=== PATIENT | male | born 1955 | race Caucasian/White ===

== ENCOUNTER → 2018-10-14 | Outpatient (CLI) | payer OTHER ==
--- NOTE | 2018-10-14 12:53 | REP ---
Clinical: sore throat. Comparison: none. Technique: PA and lateral. Findings: The mediastinum and cardiac silhouette are normal. The lung guillory are clear and without acute consolidation, effusion, or pneumothorax. The skeletal structures are intact and normal. Impression: 1. No acute cardiopulmonary process. Electronically Signed by Sherif Abel MD 10/14/2018 12:44 P
== END ==
LOC: M LRY 12:26
PROVIDERS: ATTEND Nurse Practitioner Family
DX: J02.9 Acute pharyngitis, unspecified (principal)

== ENCOUNTER → 2018-10-14 | Outpatient (REF) | payer OTHER | LOC: M SFHCLERA 14:12 | PROVIDERS: ATTEND Nurse Practitioner Family | DX: J06.9 Acute upper respiratory infection, unspecified (principal) ==

== ENCOUNTER → 2018-11-17 | Outpatient (REF) | payer OTHER ==
[2018-11-17 12:25] LABS: HEMATOCRIT 37.9 % (42.0-52.0); MEAN CORPUSCULAR HEMOGLOBIN 29.1 pg (27.0-33.0); MEAN CORPUSCULAR HGB CONC 31.7 g/dl (32.0-36.5); PLATELET COUNT, AUTOMATED 108 10^3/uL (150-450); RED BLOOD COUNT 4.12 10^6/uL (4.30-6.10); WHITE BLOOD COUNT 6.6 10^3/uL (4.0-10.0)
[2018-11-17 12:43] LABS: HEMOGLOBIN A1c 6.8 %
[2018-11-17 12:50] LABS: ALBUMIN 3.7 GM/DL (3.2-5.2); ALT/SGPT 61 U/L (12-78); BLOOD UREA NITROGEN 12 MG/DL (7-18); CALCIUM LEVEL 8.9 MG/DL (8.8-10.2); CARBON DIOXIDE LEVEL 26 MEQ/L (21-32); CHLORIDE LEVEL 100 MEQ/L (98-107); CHOLESTEROL LEVEL 220 MG/DL (<200); CHOLESTEROL RISK RATIO 5.789 (<5); CREATININE FOR GFR 0.79 MG/DL (0.70-1.30); GLOMERULAR FILTRATION RATE > 60.0 (>49); GLUCOSE, FASTING 147 MG/DL (70-100); HDL CHOLESTEROL 38 MG/DL (>40); LDL CHOLESTEROL 152 MG/DL (<100); NON-HDL-C 182 MG/DL; SODIUM LEVEL 135 MEQ/L (136-145); TOTAL PROTEIN 7.9 GM/DL (6.4-8.2); TRIGLYCERIDES LEVEL 149 MG/DL (<150)
== END ==
LOC: M SFHCPLAZ 10:07
PROVIDERS: ATTEND Nurse Practitioner Adult Health
DX: Z00.00 Encounter for general adult medical examination without abnormal findings (principal); Z13.220 Encounter for screening for lipoid disorders; I10 Essential (primary) hypertension; Z83.3 Family history of diabetes mellitus

== ENCOUNTER → 2018-12-11 | Outpatient (CLI) | payer OTHER ==
--- NOTE | 2018-12-11 14:12 | REP ---
GALLBLADDER ULTRASOUND: HISTORY: Right upper quadrant pain. There is no filling defects in the gallbladder. The gallbladder wall is minimally thickened measuring 2.4 mm. The common bile duct measures 5.6 mm. The liver is mildly coarse in echogenicity suggestive of chronic liver disease. There is dilatation of the main portal vein measuring 1.8 cm. The right kidney measures 5.2 cm in transverse x 4.6 cm in AP x 10 cm in cephalocaudal dimensions. There is no hydronephrosis or mass. A trace amount of free fluid is present. IMPRESSION: 1. There is a minimally thickened gallbladder wall. 2. The liver is coarse in echogenicity suggestive of chronic liver disease. 3. There is dilatation of the main portal vein. 4. There is a trace amount of free fluid. Electronically Signed by Israel Stanley MD 12/11/2018 02:13 P
== END ==
LOC: M RAD 09:58
PROVIDERS: ATTEND Nurse Practitioner Family
DX: R10.9 Unspecified abdominal pain (principal)

== ENCOUNTER → 2019-01-01 | Outpatient (CLI) | payer OTHER ==
--- NOTE | 2019-01-01 10:43 | REP ---
Abdominal right upper quadrant ultrasound for chronic liver disease: There is no cholelithiasis, gallbladder wall thickening or pericholecystic fluid. There is no intrahepatic or extrahepatic biliary duct dilatation. The common biliary duct measures 2.5 mm in diameter. The hepatic parenchyma is diffusely coarsened compatible with hepato steatosis or chronic hepatic parenchymal disease. There are no hepatic masses or cysts. The main portal vein is dilated measuring up to 17.8 mm, normal as up to 13 mm. The portal vein flow velocity is low normal measuring 23.4 cm/sec, normal is 20 cm/sec - 40 cm/sec. The pancreas is obscured by bowel gas. The right kidney measures 10.9 by 4.5 x 4.2 cm and is normal size. There is no right renal calculus or hydronephrosis. There is no right renal solid or cystic mass. There is right upper quadrant ascites. Impression: There are no hepatic masses. The hepatic parenchyma is coarsened compatible with chronic liver disease. The portal vein is dilated measuring up to 17.8 mm. Flow velocity in the main portal vein is in the low normal range. There is right upper quadrant abdominal ascites. Electronically Signed by Silvio Gunn MD 01/01/2019 10:34 A
== END ==
LOC: M RAD 08:15
PROVIDERS: ATTEND Nurse Practitioner Adult Health
DX: K76.9 Liver disease, unspecified (principal); R18.8 Other ascites

== ENCOUNTER → 2019-02-17 | Outpatient (REF) | payer OTHER, MEDICARE ==
[2019-02-17 12:05] LABS: HEMATOCRIT 37.3 % (42.0-52.0); MEAN CORPUSCULAR HEMOGLOBIN 28.3 pg (27.0-33.0); MEAN CORPUSCULAR HGB CONC 32.2 g/dl (32.0-36.5); PLATELET COUNT, AUTOMATED 100 10^3/uL (150-450); RED BLOOD COUNT 4.24 10^6/uL (4.30-6.10); WHITE BLOOD COUNT 5.3 10^3/uL (4.0-10.0)
[2019-02-17 12:14] LABS: ALBUMIN 3.7 GM/DL (3.2-5.2); ALT/SGPT 44 U/L (12-78); BILIRUBIN,TOTAL 0.6 MG/DL (0.2-1.0); BLOOD UREA NITROGEN 14 MG/DL (7-18); CALCIUM LEVEL 8.8 MG/DL (8.8-10.2); CARBON DIOXIDE LEVEL 27 MEQ/L (21-32); CHLORIDE LEVEL 104 MEQ/L (98-107); FERRITIN 10 NG/ML (26-388); GLOMERULAR FILTRATION RATE > 60.0 (>49); GLUCOSE, FASTING 132 MG/DL (70-100); IRON (FE) 43 UG/DL (65-175); PERCENT SATURATION 10.3 % (19.7-50.0); POTASSIUM SERUM 4.4 MEQ/L (3.5-5.1); SODIUM LEVEL 137 MEQ/L (136-145); TOTAL IRON BINDING CAPACITY 419 UG/DL (250-450); TOTAL PROTEIN 8.1 GM/DL (6.4-8.2)
[2019-02-17 12:20] LABS: HEMOGLOBIN A1c 7.2 %
[2019-02-17 12:34] LABS: MALB URINE SIEMENS < 5.0 MG/L; MAU/CREAT RATIO 4.4 MCG/MG (0.0-30.0)
== END ==
LOC: M SFHCPLAZ 10:30
PROVIDERS: ATTEND Nurse Practitioner Adult Health
DX: E11.9 Type 2 diabetes mellitus without complications (principal); E03.9 Hypothyroidism, unspecified; D64.9 Anemia, unspecified

== ENCOUNTER → 2019-02-24 | Outpatient (CLI) | payer OTHER, MEDICARE ==
[~2019-02-24] MED LIST: ADV250INH; ALLE4TAB11 PO; ASPI81TA85 PO; DILT240C28; FLUTISP; LOSA50TA88; METF500T4; OMEP-221; PROAAER10; SILD50TA PO
[2019-02-24 11:42] LABS: BASO % 0.6 % (0.0-1.0); EOS # 0.1 10^3/uL (0.0-0.50); EOS % 2.4 % (0.0-3.0); HEMATOCRIT 36.4 % (42.0-52.0); HEMOGLOBIN 11.8 g/dl (13.5-17.5); LYMPH # 0.9 10^3/uL (1.5-4.5); LYMPH % 16.2 % (24.0-44.0); MEAN CORPUSCULAR HEMOGLOBIN 28.9 pg (27.0-33.0); MEAN CORPUSCULAR HGB CONC 32.4 g/dl (32.0-36.5); MEAN CORPUSCULAR VOLUME 89.2 fl (80.0-96.0); MONO # 0.5 10^3/uL (0.0-0.8); MONO % 8.5 % (0.0-5.0); NEUTROPHILS # 3.9 10^3/uL (1.8-7.7); NEUTROPHILS % 71.9 % (36.0-66.0); RED BLOOD COUNT 4.08 10^6/uL (4.30-6.10); WHITE BLOOD COUNT 5.4 10^3/uL (4.0-10.0)
[2019-02-24 11:46] LABS: PLATELET COUNT, AUTOMATED 89 10^3/uL (150-450)
[2019-02-24 11:54] LABS: INR 1.04; PROTHROMBIN TIME 13.7 SECONDS (12.1-14.4)
[2019-02-24 11:55] LABS: PARTIAL THROMBOPLASTIN TIME 29.2 SECONDS (25.4-37.6)
[2019-02-24 12:38] LABS: ALBUMIN 3.9 GM/DL (3.2-5.2); ALT/SGPT 41 U/L (12-78); BILIRUBIN,DIRECT 0.2 MG/DL (0.0-0.2); BILIRUBIN,TOTAL 0.7 MG/DL (0.2-1.0); HEPATITIS B SURFACE ANTIBODY NEGATIVE (POSITIVE); HEPATITIS B SURFACE ANTIGEN NEGATIVE (NEGATIVE); IRON (FE) 43 UG/DL (65-175); PERCENT SATURATION 10.7 % (19.7-50.0); TOTAL IRON BINDING CAPACITY 403 UG/DL (250-450); TOTAL PROTEIN 7.5 GM/DL (6.4-8.2)
[2019-02-24 12:56] LABS: HEPATITIS C VIRUS ABY INDEX 0.1 INDEX (<0.8)
[2019-03-03 00:06] LABS: ANTI-MITOCHONDRIAL ANTIBODY <20.0 Units (0.0-20.0); ANTI-SMOOTH MUSCLE ANTIBODY 10 Units (0-19); ANTINUCLEAR ANTIBODIES DIRECT Negative (Negative); HEPATITIS A IgG TOTAL Negative (Negative); IgA SERUM (part of Subclasses) 389 mg/dL (61-437); LIVER-KIDNEY MICROSOMAL ABY <20.1 Units (0.0-20.0); TISSUE TRANSGLUTAMINASE IgA 2 U/mL (0-3)
== END ==
LOC: M LAB 10:59
PROVIDERS: ATTEND Internal Medicine Gastroenterology
DX: R10.13 Epigastric pain (principal)

== ENCOUNTER 2019-03-05 08:43 | Day surgery (SDC) | payer OTHER, MEDICARE ==
[~2019-03-05] VITALS: Ht 175.3 cm; Wt 383.7 kg
[~2019-03-05 08:43] MED LIST changes: +NS 1,000 ML IV ONE; +PROPOFOL 500 MG/50 ML VIAL As Ordered ONE
[2019-03-05] MEDS ORDERED: LIDOCAINE 2% INJ 100 MG/5 ML SDV (FOR ANES.) As Ordered ONE (09:53)
[2019-03-05] MEDS ORDERED: PROPOFOL 200 MG/20 ML VIAL As Ordered ONE ×2 (09:53→09:59)
--- NOTE | 2019-03-05 10:24 | ROOR ---
Patient Name: Oscar Vegas Procedure Date: 03/05/2019 9:27 AM Date of : 1955 Age: 64 Room: [facility] Gender: Male Note Status: Finalized Procedure: Upper GI endoscopy Indications: Dyspepsia Providers: Bernardo Shaw MD Referring MD: Shantel SULLIVAN NP Requesting Provider: Medicines: Monitored Anesthesia Care Complications: No immediate complications. Procedure: Pre-Anesthesia Assessment: - Prior to the procedure, a History and Physical was performed, and patient medications and allergies were reviewed. The patient is competent. The risks and benefits of the procedure and the sedation options and risks were discussed with the patient. All questions were answered and informed consent was obtained. Patient identification and proposed procedure were verified by the physician, the nurse and the anesthesiologist in the procedure room. Mental Status Examination: alert and oriented. Airway Examination: normal oropharyngeal airway and neck mobility. Respiratory Examination: clear to auscultation. CV Examination: normal. Prophylactic Antibiotics: The patient does not require prophylactic antibiotics. Prior Anticoagulants: The patient has taken no previous anticoagulant or antiplatelet agents. ASA Grade Assessment: III - A patient with severe systemic disease. After reviewing the risks and benefits, the patient was deemed in satisfactory condition to undergo the procedure. The anesthesia plan was to use monitored anesthesia care (MAC). Immediately prior to administration of medications, the patient was re-assessed for adequacy to receive sedatives. The heart rate, respiratory rate, oxygen saturations, blood pressure, adequacy of pulmonary ventilation, and response to care were monitored throughout the procedure. The physical status of the patient was re-assessed after the procedure. The Endoscope was introduced through the mouth, and advanced to the second part of duodenum. The upper GI endoscopy was accomplished without difficulty. The patient tolerated the procedure well. Findings: Three columns of non-bleeding grade III, large (> 5 mm) varices were found in the middle third of the esophagus and in the lower third of the esophagus,. No stigmata of recent bleeding were evident and no red silvano signs were present. The Z-line was regular and was found 36 cm from the incisors. Diffuse moderate inflammation characterized by congestion (edema), erythema, friability and granularity was found in the gastric body, in the gastric antrum and at the pylorus. A few 8 mm sessile polyps with no bleeding and no stigmata of recent bleeding were found in the gastric antrum. Biopsies were taken with a cold forceps for histology. Verification of patient identification for the specimen was done by the physician and nurse using the patient's name, date and medical record number. Estimated blood loss was minimal. Moderate portal hypertensive gastropathy was found in the gastric fundus and in the gastric body. A 8 mm healed ulcer was found in the duodenal bulb. The scar tissue was healthy in appearance. Patchy moderately congested mucosa without active bleeding and with no stigmata of bleeding was found in the duodenal bulb and in the second portion of the duodenum. Biopsies for histology were taken with a cold forceps for evaluation of celiac disease. Impression: - Non-bleeding grade III and large (> 5 mm) esophageal varices. - Z-line regular, 36 cm from the incisors. - Gastritis. - A few gastric polyps. Biopsied. - Portal hypertensive gastropathy. - Duodenal scar. - Congested duodenal mucosa. Biopsied. Recommendation: - Patient has a contact number available for emergencies. The signs and symptoms of potential delayed complications were discussed with the patient. Return to normal activities tomorrow. Written discharge instructions were provided to the patient. - Low sodium diet. - Continue present medications. - Resume aspirin at prior dose tomorrow. Refer to primary physician for further adjustment of therapy. - Await pathology results. - Use Protonix (pantoprazole) 40 mg PO twice daily - to be taken in morning (1/2 hour before breakfast) and at bedtime ( atleast 3 hours after last meal) for 8 weeks. - Give a beta gabriel with dosage titrated by the heart rate. - Repeat upper endoscopy in 2 months to evaluate the response to therapy and for retreatment. - Return to GI clinic 1 - 2 weeks. Please call GI clinic @ [phone] for apppointment date and time. - Return to primary care physician. Bernardo Shaw MD Bernardo Shaw MD 03/05/2019 10:23:48 AM Electronically signed by Bernardo Shaw MD Number of Addenda: 0 Note Initiated On: 03/05/2019 9:27 AM Estimated Blood Loss: Estimated blood loss was minimal.
[2019-03-05 10:45] VITALS: BP 122/69
--- NOTE | 2019-03-05 10:45 | ROOR ---
Patient Name: Oscar Vegas Procedure Date: 03/05/2019 9:28 AM Date of : 1955 Age: 64 Room: [facility] Gender: Male Note Status: Finalized Procedure: Colonoscopy Indications: Screening for colorectal malignant neoplasm Providers: Bernardo Shaw MD Referring MD: Shantel SULLIVAN NP Requesting Provider: Medicines: Monitored Anesthesia Care Complications: No immediate complications. Procedure: Pre-Anesthesia Assessment: - Prior to the procedure, a History and Physical was performed, and patient medications and allergies were reviewed. The patient is competent. The risks and benefits of the procedure and the sedation options and risks were discussed with the patient. All questions were answered and informed consent was obtained. Patient identification and proposed procedure were verified by the physician, the nurse and the anesthesiologist in the procedure room. Mental Status Examination: alert and oriented. Airway Examination: normal oropharyngeal airway and neck mobility. Respiratory Examination: clear to auscultation. CV Examination: normal. Prophylactic Antibiotics: The patient does not require prophylactic antibiotics. Prior Anticoagulants: The patient has taken no previous anticoagulant or antiplatelet agents. ASA Grade Assessment: III - A patient with severe systemic disease. After reviewing the risks and benefits, the patient was deemed in satisfactory condition to undergo the procedure. The anesthesia plan was to use monitored anesthesia care (MAC). Immediately prior to administration of medications, the patient was re-assessed for adequacy to receive sedatives. The heart rate, respiratory rate, oxygen saturations, blood pressure, adequacy of pulmonary ventilation, and response to care were monitored throughout the procedure. The physical status of the patient was re-assessed after the procedure. The Colonoscope was introduced through the anus and advanced to the terminal ileum, with identification of the appendiceal orifice and IC valve. The colonoscopy was performed without difficulty. The patient tolerated the procedure well. The quality of the bowel preparation was good. The terminal ileum, ileocecal valve, appendiceal orifice, and rectum were photographed. Scope insertion time was 4 minutes. Scope withdrawal time was 10 minutes. The total duration of the procedure was 14 minutes. Findings: The perianal and digital rectal examinations were normal. The terminal ileum appeared normal. Three medium-sized angioectasias without bleeding were found in the transverse colon, in the ascending colon and in the cecum. Three sessile polyps were found in the recto-sigmoid colon and ascending colon. The polyps were 4 to 10 mm in size. These polyps were removed with a hot snare. Resection and retrieval were complete. Verification of patient identification for the specimen was done by the physician and nurse using the patient's name, date and medical record number. Estimated blood loss was minimal. Non-bleeding external and internal hemorrhoids were found during retroflexion. The hemorrhoids were medium-sized. Impression: - The examined portion of the ileum was normal. - Three non-bleeding colonic angioectasias. - Three 4 to 10 mm polyps at the recto-sigmoid colon and in the ascending colon, removed with a hot snare. Resected and retrieved. - Non-bleeding external and internal hemorrhoids. Recommendation: - Patient has a contact number available for emergencies. The signs and symptoms of potential delayed complications were discussed with the patient. Return to normal activities tomorrow. Written discharge instructions were provided to the patient. - Resume previous diet. - Continue present medications. - Await pathology results. - Repeat colonoscopy in 3 years for surveillance based on pathology results. - Return to GI clinic 1 - 2 weeks. Please call GI clinic @ [phone] for apppointment date and time. - Return to primary care physician. Bernardo Shaw MD Bernardo Shaw MD 03/05/2019 10:44:54 AM Electronically signed by Bernardo Shaw MD Number of Addenda: 0 Note Initiated On: 03/05/2019 9:28 AM Estimated Blood Loss: Estimated blood loss was minimal.
== END 2019-03-05 10:55 | disposition home or self-care (01) ==
LOC: M OPP 08:43
PROVIDERS: ATTEND Internal Medicine Gastroenterology
DX: D12.2 Benign neoplasm of ascending colon (principal); D12.5 Benign neoplasm of sigmoid colon; D12.7 Benign neoplasm of rectosigmoid junction; K55.20 Angiodysplasia of colon without hemorrhage; K64.8 Other hemorrhoids; K29.70 Gastritis, unspecified, without bleeding; I85.00 Esophageal varices without bleeding; K31.7 Polyp of stomach and duodenum; K76.6 Portal hypertension; R10.13 Epigastric pain; Z12.11 Encounter for screening for malignant neoplasm of colon

== ENCOUNTER 2019-04-05 12:37 | Day surgery (SDC) | payer OTHER, MEDICARE ==
[~2019-04-05] VITALS: Ht 175.3 cm; Wt 93.0 kg
[~2019-04-05 12:37] MED LIST changes: -NS 1,000 ML IV ONE; +PANT40TA3 PO; -PROPOFOL 500 MG/50 ML VIAL As Ordered ONE
[2019-04-05] MEDS ORDERED: ROCURONIUM BROMIDE 50 MG/5 ML VIAL As Ordered ONE (13:13)
[2019-04-05] MEDS ORDERED: LIDOCAINE 2% INJ 100 MG/5 ML SDV (FOR ANES.) As Ordered ONE (13:13)
[2019-04-05] MEDS ORDERED: ONDANSETRON 4MG/2ML VIAL (J2405) As Ordered ONE (13:13)
[2019-04-05] MEDS ORDERED: PROPOFOL 200 MG/20 ML VIAL As Ordered ONE (13:13)
[2019-04-05] MEDS ORDERED: dexameTHASONE 4 MG/ML 1ML VIAL (J1100) As Ordered ONE (13:13)
[2019-04-05] MEDS ORDERED: fentaNYL 250 MCG/5 ML INJECTION (J3010) As Ordered ONE (13:14)
[2019-04-05] MEDS ORDERED: MIDAZOLAM INJ 2 MG/2 ML VIAL (J2250) As Ordered ONE (13:14)
[2019-04-05] MEDS ORDERED: LR 1,000 ML IV ONE (13:15)
[2019-04-05 13:18] LABS: HEMATOCRIT 34.3 % (42.0-52.0); HEMOGLOBIN 11.1 g/dl (13.5-17.5); MEAN CORPUSCULAR HEMOGLOBIN 28.2 pg (27.0-33.0); MEAN CORPUSCULAR HGB CONC 32.4 g/dl (32.0-36.5); MEAN CORPUSCULAR VOLUME 87.3 fl (80.0-96.0); RED BLOOD COUNT 3.93 10^6/uL (4.30-6.10); WHITE BLOOD COUNT 5.1 10^3/uL (4.0-10.0)
[2019-04-05 13:21] LABS: PLATELET COUNT, AUTOMATED 87 10^3/uL (150-450)
[2019-04-05] MEDS ORDERED: BUPIVACAINE HCL 0.5% 30 ML VIAL As Ordered ONE (14:00)
[2019-04-05] MEDS ORDERED: PHENYLephrine HCL 500 MCG/5 ML (100MCG/ML) SYRINGE (J2370) As Ordered ONE (14:32)
[2019-04-05] MEDS ORDERED: LR 1,000 ML IV SCH ×2 (15:45→16:00)
[2019-04-05] MEDS ORDERED: ONDANSETRON 4MG/2ML VIAL (J2405) IV PRN (15:45)
[2019-04-05] MEDS ORDERED: fentaNYL 100 MCG/2 ML INJECTION (J3010) IV PRN (15:45)
[2019-04-05 16:35] VITALS: BP 143/64
--- NOTE | 2019-04-05 19:50 | RO ---
DATE OF PROCEDURE: 04/05/2019 PREOPERATIVE DIAGNOSES 1. Left knee lateral meniscus tear. 2. Left knee osteoarthritis. POSTOPERATIVE DIAGNOSES: 1. Left knee medial and lateral meniscus tear. 2. Left knee osteoarthritis. PROCEDURE: Left knee arthroscopy with partial medial and lateral meniscectomy and chondroplasty. SURGEON: Dr. Oscar Sheppard UTILITY ACCOUNTS DIRECTOR: None. ANESTHESIA: Spinal. IV FLUIDS: Lactated Ringer's. ESTIMATED BLOOD LOSS: 5 mL. CLOSURE: Nylon. DESCRIPTION OF PROCEDURE: The patient was identified in preoperative holding area. The left leg marked by myself. He was brought to the operating room where spinal anesthesia was induced. He was placed supine and all bony prominences were well padded. A well-padded tourniquet applied to the left thigh. Examination under anesthesia revealed range of motion from 0 to 140 degrees and mild lateral compartment instability with valgus stress testing, grade 1A Ken. Negative posterior drawer. The left leg was then prepped and draped in the normal sterile fashion with ChloraPrep. Prior to incision, a time-out was performed per hospital protocol. No IV antibiotics indicated. The left leg was exsanguinated with an Esmarch bandage, the tourniquet inflated to 250 mmHg. The knee was insufflated with lactated Ringer's. Standard anterolateral portal made with an 11-blade. 30-degree arthroscope introduced into the joint atraumatically. Diagnostic arthroscopy was carried out revealing diffuse grade 1 and 2 chondromalacia on the central patella. Trochlea grade 1. There were several small loose bodies in the suprapatellar pouch. There was diffuse mild to moderate synovitis. Medial compartment was entered where there was a macerated tear of the body and posterior horn of medial meniscus. Grade 2 chondromalacia of the medial femoral condyle, grade 1 of the tibial plateau. Anterior cruciate ligament (ACL) was obscured by ligamentum mucosum. The leg was then brought to the figure-4 position where there was a complex tear in the posterior horn of the lateral meniscus adjacent to the root with degenerative free edge tearing extending around into the body. Grade 2 to 3 chondromalacia of the lateral tibial plateau, grade 1 of the lateral femoral condyle. An anteromedial portal was created under direct visualization. On probing of both the medial and lateral meniscus tears, they were found to be unstable. I performed a partial medial meniscectomy with a combination of meniscal punches and shaver. All remaining meniscus tissue was stable at the end of the partial meniscectomy. I would estimate I removed approximately 15-20% of the medial meniscus. Chondroplasty of the medial femoral condyle with a shaver. The ligamentum mucosum was debrided with a shaver. There was no bleeding there. Next, the leg was brought back to figure-4 position where there was an unstable tear, and I performed a partial meniscectomy with the shaver and meniscal punches. The tear did extend again around to the body so that was debrided as well. On completion of the partial meniscectomy, the superior leaflet adjacent to the root was still attached and that was stable on probing. Chondroplasty was performed to the lateral tibial plateau. The knee was then brought into full extension and chondroplasty of patella was performed. Several small loose bodies removed with the shaver. The knee was irrigated and drained. Portals closed with nylon suture. I injected 0.5% Marcaine without epinephrine for local anesthetic. A bulky sterile dressing was applied after the tourniquet was let down. He was transferred to the post-anesthesia care unit (PACU) in stable condition. He will take full dose aspirin for deep vein thrombosis (DVT) prophylaxis.
[2019-04-06] MEDS ORDERED: ASPIRIN 325 MG TAB PO SCH (09:00)
== END 2019-04-05 16:46 | disposition home or self-care (01) ==
LOC: M SDC 12:37
PROVIDERS: ATTEND Orthopaedic Surgery
DX: M23.222 Derangement of posterior horn of medial meniscus due to old tear or injury, left knee (principal); M23.252 Derangement of posterior horn of lateral meniscus due to old tear or injury, left knee; M65.162 Other infective (teno)synovitis, left knee; M94.262 Chondromalacia, left knee; M23.42 Loose body in knee, left knee; M17.12 Unilateral primary osteoarthritis, left knee; I10 Essential (primary) hypertension; E11.9 Type 2 diabetes mellitus without complications; K76.9 Liver disease, unspecified; D73.1 Hypersplenism; D64.9 Anemia, unspecified; K21.9 Gastro-esophageal reflux disease without esophagitis; J45.20 Mild intermittent asthma, uncomplicated; R06.83 Snoring; T88.59XD Other complications of anesthesia, subsequent encounter; Z91.018 Allergy to other foods; Z79.899 Other long term (current) drug therapy; Z79.82 Long term (current) use of aspirin; Z79.84 Long term (current) use of oral hypoglycemic drugs; Z85.828 Personal history of other malignant neoplasm of skin; Z86.010 Personal history of colon polyps
CPT/HCPCS: 29880; 36415; 85027; 85049; 85055; J1100; J2250; J2370; J2405; J3010

== ENCOUNTER → 2019-07-05 | Outpatient (CLI) | payer OTHER, MEDICARE ==
[~2019-07-05] MED LIST changes: +METF-791; -METF500T4
--- NOTE | 2019-07-06 04:01 | REP ---
Clinical: Right-sided sciatica. Technique: AP, lateral, bilateral oblique, and coned-down views of the lumbosacral spine. Findings: Age-related osteopenia and moderate multilevel degenerative disc osteophyte complexes are appreciated including osteophytosis, endplate sclerosis, facet arthropathy. Disc space narrowing at L5-S1 and to a lesser extent L4-5. Alignment and lordosis maintained. No acute fracture / compression injury or subluxation. Impression: Osteopenia and moderate multilevel degenerative spondylosis. Electronically Signed by Sherif Abel MD 07/06/2019 03:53 A
== END ==
LOC: M SMT 15:37
PROVIDERS: ATTEND Physician Assistant Medical
DX: M25.78 Osteophyte, vertebrae (principal); M51.37 Other intervertebral disc degeneration, lumbosacral region; M51.36 Other intervertebral disc degeneration, lumbar region

== ENCOUNTER → 2019-07-06 | Outpatient (CLI) | payer OTHER, MEDICARE ==
[2019-07-06 08:53] LABS: ALBUMIN 3.8 GM/DL (3.2-5.2); ALT/SGPT 35 U/L (12-78); BILIRUBIN,DIRECT 0.1 MG/DL (0.0-0.2); BILIRUBIN,TOTAL 0.5 MG/DL (0.2-1.0); BLOOD UREA NITROGEN 12 MG/DL (7-18); CARBON DIOXIDE LEVEL 25 MEQ/L (21-32); CHLORIDE LEVEL 105 MEQ/L (98-107); CREATININE FOR GFR 0.87 MG/DL (0.70-1.30); GLOMERULAR FILTRATION RATE > 60.0 (>49); GLUCOSE, FASTING 141 MG/DL (70-100); POTASSIUM SERUM 4.4 MEQ/L (3.5-5.1); SODIUM LEVEL 138 MEQ/L (136-145); TOTAL PROTEIN 7.3 GM/DL (6.4-8.2)
--- NOTE | 2019-07-07 05:10 | REP ---
Clinical: Alcoholic cirrhosis. Technique: Real time kwon scale ultrasound examination using curved array transducer. Comparison: 12/11/2018. Findings: Liver is normal in contour, size, echogenicity without focal hepatic lesion identified. Main portal vein is moderately dilated to 19.7mm diameter. Visualized portions of the pancreas are unremarkable but limited due to interposed bowel gas. Gallbladder is normal and without gallstones, wall thickening, or pericholecystic fluid. No biliary ductal dilatation is appreciated and the common bile duct measures 4.8 mm. No ascites. Impression: 1. Moderately dilated main portal vein. Electronically Signed by Sherif Abel MD 07/07/2019 05:01 A
== END ==
LOC: M RAD 07:48
PROVIDERS: ATTEND Internal Medicine Gastroenterology
DX: K70.31 Alcoholic cirrhosis of liver with ascites (principal)

== ENCOUNTER → 2019-09-24 | Outpatient (REF) | payer OTHER, MEDICARE ==
[2019-09-24 14:19] LABS: HEMATOCRIT 37.7 % (42.0-52.0); HEMOGLOBIN 11.6 g/dl (13.5-17.5); MEAN CORPUSCULAR HEMOGLOBIN 27.3 pg (27.0-33.0); MEAN CORPUSCULAR HGB CONC 30.8 g/dl (32.0-36.5); MEAN CORPUSCULAR VOLUME 88.7 fl (80.0-96.0); RED BLOOD COUNT 4.25 10^6/uL (4.30-6.10); WHITE BLOOD COUNT 5.3 10^3/uL (4.0-10.0)
[2019-09-24 14:24] LABS: PLATELET COUNT, AUTOMATED 87 10^3/uL (150-450)
[2019-09-24 14:39] LABS: HEMOGLOBIN A1c 7.1 %
[2019-09-24 14:52] LABS: ALBUMIN 3.9 GM/DL (3.2-5.2); ALT/SGPT 35 U/L (12-78); BILIRUBIN,TOTAL 0.7 MG/DL (0.2-1.0); BLOOD UREA NITROGEN 11 MG/DL (7-18); CALCIUM LEVEL 9.1 MG/DL (8.8-10.2); CARBON DIOXIDE LEVEL 27 MEQ/L (21-32); CHLORIDE LEVEL 102 MEQ/L (98-107); CREATININE FOR GFR 0.84 MG/DL (0.70-1.30); GLOMERULAR FILTRATION RATE > 60.0 (>49); GLUCOSE, FASTING 123 MG/DL (70-100); POTASSIUM SERUM 4.7 MEQ/L (3.5-5.1); SODIUM LEVEL 137 MEQ/L (136-145); TOTAL PROTEIN 7.7 GM/DL (6.4-8.2)
== END ==
LOC: M SFHCPLAZ 11:12
PROVIDERS: ATTEND Nurse Practitioner Adult Health
DX: E11.9 Type 2 diabetes mellitus without complications (principal); E03.9 Hypothyroidism, unspecified; D64.9 Anemia, unspecified

== ENCOUNTER → 2020-02-14 | Outpatient (CLI) | payer OTHER, MEDICARE ==
[2020-02-14 08:56] LABS: ALBUMIN 3.9 GM/DL (3.2-5.2); BILIRUBIN,DIRECT 0.2 MG/DL (0.0-0.2); BILIRUBIN,TOTAL 0.7 MG/DL (0.2-1.0); TOTAL PROTEIN 7.6 GM/DL (6.4-8.2)
--- NOTE | 2020-02-14 10:32 | REP ---
RIGHT UPPER QUADRANT SONOGRAPHY: HISTORY: Alcoholic hepatic cirrhosis, evaluate for liver mass, hepatocellular carcinoma, and ascites. Esophageal varices without bleeding. Comparison sonography, July 06, 2019. FINDINGS: Scanning through the right upper quadrant of the abdomen shows no evidence of ascites. Coarse liver texture is seen. Dilated main portal vein is again seen 20 mm in AP dimension with normal direction of flow. No focal liver lesion is seen. Common bile duct is normal measuring 0.4 cm in diameter. Gallbladder is normal in size with a smooth thin wall, no stone or mass lesion seen. There is no evidence of right renal abnormality. The right kidney measures 10.7 x 5.1 x 5.1 cm. IMPRESSION: Somewhat coarse hepatic texture and mildly dilated main portal vein again seen. Normal hepatopetal flow direction. No evidence of ascites or mass lesion. Electronically Signed by Ricardo Galicia MD 02/14/2020 01:36 P
== END ==
LOC: M RAD 07:48
PROVIDERS: ATTEND Internal Medicine Gastroenterology
DX: I85.00 Esophageal varices without bleeding (principal)

== ENCOUNTER 2020-03-05 21:05 | Inpatient (IN) | payer OTHER, MEDICARE ==
[~2020-03-05] VITALS: Ht 175.3 cm; Wt 102.3 kg
[~2020-03-05 21:05] MED LIST changes: -DILT240C28; +DILT240C28 PO; -LOSA50TA88; +LOSA50TA88 PO; -METF-791; +METF-838 PO
[2020-03-05] MEDS ORDERED: NS 1,000 ML IV ONE (21:45)
[2020-03-05] MEDS ORDERED: PANTOPRAZOLE 40MG VIAL (C9113 PER 1) IV ONE (21:45)
[2020-03-05 21:53] LABS: BASO % 0.2 % (0.0-1.0); EOS # 0.2 10^3/uL (0.0-0.5); HEMOGLOBIN 7.5 g/dl (13.5-17.5); LYMPH % 23.2 % (24.0-44.0); MEAN CORPUSCULAR HEMOGLOBIN 27.2 pg (27.0-33.0); MEAN CORPUSCULAR HGB CONC 31.3 g/dl (32.0-36.5); MONO # 0.9 10^3/uL (0.0-0.8); MONO % 9.8 % (0.0-5.0); NEUTROPHILS # 5.7 10^3/uL (1.5-8.5); NEUTROPHILS % 64.6 % (36.0-66.0); PLATELET COUNT, AUTOMATED 142 10^3/uL (150-450); RED BLOOD COUNT 2.76 10^6/uL (4.30-6.10); WHITE BLOOD COUNT 8.8 10^3/uL (4.0-10.0)
[2020-03-05 21:57] LABS: INR 1.25; PARTIAL THROMBOPLASTIN TIME 27.3 SECONDS (25.0-38.4); PROTHROMBIN TIME 15.4 SECONDS (11.8-14.0)
[2020-03-05 22:01] LABS: BLOOD UREA NITROGEN 25 MG/DL (7-18); CALCIUM LEVEL 7.7 MG/DL (8.8-10.2); CARBON DIOXIDE LEVEL 26 MEQ/L (21-32); CHLORIDE LEVEL 106 MEQ/L (98-107); CREATININE FOR GFR 1.11 MG/DL (0.70-1.30); GLOMERULAR FILTRATION RATE > 60.0 (>49); GLUCOSE, FASTING 210 MG/DL (70-100); POTASSIUM SERUM 4.6 MEQ/L (3.5-5.1); SODIUM LEVEL 137 MEQ/L (136-145)
[2020-03-05] MEDS ORDERED: NAPR1TAB83 PO (22:10)
[2020-03-05] MEDS ORDERED: METH1TAB40 PO (22:10)
[2020-03-05] MEDS ORDERED: OMEP-218 PO (22:10)
[2020-03-05] MEDS ORDERED: PROP20TA72 PO (22:10)
[2020-03-05] MEDS ORDERED: PROP10TA56 PO (22:14)
[2020-03-05] MEDS ORDERED: OCTREOTIDE ACETATE 100MCG/ML VIAL (J2354 PER 25MCG) IV ONE (22:30)
[2020-03-05] MEDS ORDERED: OCTREOTIDE ACETATE 1,200 MCG in NS 238.8 ML IV SCH (22:30)
[2020-03-05] MEDS ORDERED: cefTRIAXone SOD 1 GM in D5W MINI-BAG PLUS 50 ML IV ONE (22:30)
[2020-03-05 23:35] VITALS: BP 111/61
[2020-03-05 23:55] VITALS: BP 108/59
[2020-03-06] VITALS (16 sets, daily range): BP systolic 105–139; BP diastolic 57–81
[2020-03-06] MEDS ORDERED: ONDANSETRON 4MG/2ML VIAL IV PRN (00:15)
[2020-03-06] MEDS: OCTREOTIDE ACETATE 1,200 MCG in NS 238.8 ML IV SCH ×2 (01:28→23:52)
--- NOTE | 2020-03-06 02:24 | REP ---
Clinical: Hematemesis. Admission. Comparison: 10/14/2018. Findings: Mediastinum and cardiac silhouette are within normal limits for portable technique. Minimal basilar atelectasis cannot be excluded. No discrete focal consolidation, obvious effusion, or pneumothorax. Skeletal structures are intact. Impression: Chronic stable changes. Cannot exclude trace bibasilar atelectasis. Electronically Signed by Sherif Abel MD 03/06/2020 02:16 A
--- NOTE | 2020-03-06 02:49 | HPEPDOC ---
General Date of Admission March 05, 2020 at 23:00 Date of Service: March 05, 2020 Attending Physician: MALI CHAVEZ MD Chief Complaint The patient is a 65-year-old male admitted with a reason for visit of Gi Hemorrhage. Source: Patient Exam Limitations: No limitations Timing/Duration: 4-6 hours Severity: Severe Associated Symptoms: Other (projectile hematemesis) History of Present Illness 65yo M with a history of long standing alcohol use disorder from which he quit in 2019, has alcoholic cirrhosis c/b esphageal varices and ascites, GERD, gastric ulcer, asthma, DM and HTN who presented to the ED reporting acute projectile hematemesis a little while after eating dinner. He initially felt queasy after eating but it seemed to subside and he was preparing to go to bed when he had sudden nausea and projective vomiting bright red blood at which point his family called EMS and he was brought in. By the time he arrived in the ED, his emesis episode had subsided and he felt a little better. He otherwise denies abdominal pain at this time, chest pain, dyspnea, recent fever, chills, travel or sick contacts. His last drink of alcohol was 1 year ago and he recently had an abdominal US for HCC screening that was negative. Of note, he has a history of grade 3 varices as well as a gastric ulcer. He reported recent use of naproxen for pain. In the ED, he was hemodynamically stable, afebrile, and breathing comfortably on room air. Workup was notable for Hgb 7.5 from a baseline in the 11s, WBC 8.8, platelets 1.42, INR 1.25, Cr 1.11, CXR without pathology and his covid-[address] Shaw was consulted by the ED physician given the significant H/H drop in the setting of rosendo UGIB in this high risk patient recently on naproxen and he recommended IV PPI BID, octreotide gtt, 2u pRBCs, IV PRN antiemetics and to reach out to him this evening after blood transfusion as he may perform an endoscopy emergently overnight vs. tomorrow morning. Home Medications Scheduled Aspirin (Aspir 81) 81 Mg Tablet., 81 MG PO DAILY, (Reported) Chlorpheniramine Maleate (Chlorpheniramine Maleate) 4 Mg Tablet, 4 MG PO DAILY, (Reported) Diltiazem HCl (Dilt-Xr) 240 Mg Cap.er.deg, 240 MG PO DAILY, (Reported) Losartan Potassium (Losartan Potassium) 50 Mg Tablet, 50 MG PO QHS, (Reported) Metformin HCl (Metformin HCl ER) 500 Mg Tab.er.24h, 500 MG PO QPM, (Reported) Naproxen Sodium (Naproxen Sodium Cr) 500 Mg Tbmp.24hr, 500 MG PO QPM, (Reported) Omeprazole (Omeprazole) 20 Mg Capsule.dr, 20 MG PO DAILY, (Reported) Propranolol HCl (Propranolol HCl) 10 Mg Tablet, 10 MG PO BID, (Reported) Salmeterol/Fluticasone (Advair 250-50 Diskus) 1 Each Blst.w.dev, BID, (Reported) Sildenafil Citrate (Viagra) 50 Mg Tablet, 50 MG PO PRN, (Reported) Scheduled PRN Methocarbamol (Methocarbamol) 500 Mg Tablet, 500 MG PO QID PRN for MUSCLE SPASMS, (Reported) Allergies Coded Allergies: Leland (Verified Allergy, Severe, throat swelling, 04/05/19) Past Medical History Medical History long standing alcohol use disorder from which he quit in 2019, has alcoholic cirrhosis c/b esphageal varices and ascites, GERD, gastric ulcer, asthma, DM Surgical History L inguinal repair EGDs colonsocopy x 2, last was 02/2019 tonsillectomy L knee surgery Family History Significant Family History: No pertinent family hx Father- from complications of Parkinson's disease Mother - of natural causes Siblings - healthy Social History * Smoker: Denies Alcohol: Denies (prior heavy alcohol abuse) Drugs: denies Recent Travel/Sick Contacts: Denies: Recent travel, Recent sick contacts Psychosocial History: No pertinent psych hx Lives at home with his and adult son A-FIB/CHADSVASC A-FIB History Current/History of A-Fib/PAF?: No Current PO Anticoag Therapy: No Age/Risk Factor Scoring CHADSVASC: CHADSVASC Response (Comments) Value Age Risk Factor Age 65-74 years old 1 Gender Risk Factor Male 0 Hx of CHF No 0 Hx of HTN Yes 1 Hx of Stroke/TIA/or VTE No 0 Hx of Diabetes Yes 1 Hx of Vascular Disease No 0 Total 3 Treatment Reason Anticoagulant not given: Not indicated/[id number] Review of Systems Constitutional: Denies: Chills, Fever, Night Sweats Eyes: Denies: Pain, Vision change ENT: Denies: Head Aches, Ear Pain, Dysphagia Skin: Denies: Rash, Lesions, Breakdown Pulmonary: Denies: Dyspnea, Cough Cardiovascular: Denies: Chest Pain, Palpitations, Orthopnea, Paroxysmal Noc. Dyspnea, Lt Headedness Gastrointestinal: Reports: Nausea, Vomiting, Other Symptoms (hematemesis); Denies: Abdominal Pain Genitourinary: Denies: Dysuria, Frequency, Incontinence, Retention Hematologic: Denies: Bruising, Bleeding Excessively Endocrine: Denies: Polydipsia, Polyphagia, Polyuria, Heat Intolerance, Cold Intolerance, Other Endocrine Sx Musculoskeletal: Denies: Neck Pain, Back Pain, Joint Pain, Muscle Pain, Spasms Neurological: Denies: Weakness, Numbness, Change in speech, Confusion Psych: Reports: Mood Normal; Denies: Depression, Memory Issues Physical Examination General Exam: Positive: Alert, No Acute Distress, Other (appears older than stated age) Eye Exam: Positive: PERRLA, Conjunctiva & lids normal, EOMI; Negative: Sclera icteric ENT Exam: Positive: Atraumatic, Mucous membr. moist/pink, Pharynx Normal Neck Exam: Positive: Supple; Negative: JVD, thyromegaly Chest Exam: Positive: Clear to auscultation, Normal air movement Heart Exam: Positive: Rate Normal, Regular Rhythm, Normal S1, Normal S2; Negative: Murmurs, Rubs Telemetry: Positive: No significant arrhythmia Abdomen Exam: Positive: BS Hypoactive, Soft, Other (obese); Negative: Normal bowel sounds (hypoactive bowel sounds), Tenderness Extremity Exam: Positive: Normal pulses; Negative: Clubbing, Cyanosis, Edema, Tenderness, Swelling Skin Exam: Positive: Nl turgor and temperature, Other skin issue (pale); Negative: Breakdown, Lesion Neuro Exam: Positive: Normal Speech, Strength at 5/5 X4 ext, Sensation Intact, Cranial Nerves 3-12 NL Psych Exam: Positive: Mental status NL, Memory Intact, Oriented x 3 Vital Signs Vital Signs Date Time Temp Pulse Resp B/P (MAP) Pulse Ox O2 Delivery O2 Flow Rate FiO2 03/06/20 01:45 97.7 75 18 131/67 (88) 92 Room Air 03/06/20 00:10 98.0 Laboratory Data Labs 24H Laboratory Tests 2 03/05/20 21:14: Immature Granulocyte % (Auto) 0.2, Neutrophils (%) (Auto) 64.6, Lymphocytes (%) (Auto) 23.2L, Monocytes (%) (Auto) 9.8H, Eosinophils (%) (Auto) 2.0, Basophils (%) (Auto) 0.2, Neutrophils # (Auto) 5.7, Lymphocytes # (Auto) 2.0, Monocytes # (Auto) 0.9H, Eosinophils # (Auto) 0.2, Basophils # (Auto) 0.0, Nucleated Red Blood Cells % (auto) 0.0, Prothrombin Time 15.4H, Prothromb Time International Ratio 1.25, Activated Partial Thromboplast Time 27.3, Anion Gap 5L, Glomerular Filtration Rate > 60.0, Calcium Level 7.7L 03/06/20 00:40: Coronavirus (COVID-19)(PCR) NEGATIVE CBC/BMP Laboratory Tests 03/05/20 21:14 Assessment/Plan 65yo M with a history of long standing alcohol use disorder from which he quit in 2019, alcoholic cirrhosis c/b esophageal varices and ascites, GERD, gastric ulcer, asthma, DM and HTN who presented to the ED after acute projectile h ematemesis with an acute Hgb drop now admitted for acute UGIB in the setting of recent naproxen with GI consulted, now started on IV PPI BID, octreotide gtt, getting 2u pRBCs pending endoscopy. UGIB: Rosendo projectile hematemesis with significant H/H drop in high risk patient recently on naproxen, with a history both of peptic ulcer and grade 3 esophageal varices 2/2 alcoholic cirrhosis. -40 protonix IV BID -octreotide gtt -currently getting 2u pRBCs -IV PRN zofran [id number] -GI consulted, pending endoscopy -NPO -empiric ceftriaxone -Held antiypertensives given soft BPs -s/p 1L NS in the ED, getting blood, hemodynamically stable HTN: -hold all antihypertensives at this time with ongoing GIB DM: -hold home metformin -SSI Q6H, FSBG Q6, hypoglycemia protocol -d5NS @ 100cc/hr GERD with history of PUD: -stop NSAID -IV PPI BID as above Alcoholic liver cirrhosis: -no shifting dullness on exam today -has history of grade 3 varices, with ongoing upper GI bleeding --> started on octreotide. had to hold propanolol with soft BPs -no alcohol in 1 year -recent HCC screening was negative in 01/2020 -Check LFTs with AM labs Asthma: -continue home MDI DVT ppx: TEDs Diet: NPO Dispo: PCU Plan / VTE VTE Prophylaxis Ordered?: Yes MALI CHAVEZ MD March 06, 2020 02:49
[2020-03-06 03:34] LABS: HEMOGLOBIN 7.7 g/dl (13.5-17.5); MEAN CORPUSCULAR HEMOGLOBIN 27.6 pg (27.0-33.0); MEAN CORPUSCULAR HGB CONC 32.1 g/dl (32.0-36.5); RED BLOOD COUNT 2.79 10^6/uL (4.30-6.10); WHITE BLOOD COUNT 5.7 10^3/uL (4.0-10.0)
[2020-03-06 03:53] LABS: PLATELET COUNT, AUTOMATED 72 10^3/uL (150-450)
[2020-03-06 04:05] LABS: ALT/SGPT 27 U/L (12-78); BILIRUBIN,TOTAL 0.7 MG/DL (0.2-1.0); BLOOD UREA NITROGEN 31 MG/DL (7-18); CALCIUM LEVEL 7.5 MG/DL (8.8-10.2); CARBON DIOXIDE LEVEL 22 MEQ/L (21-32); CHLORIDE LEVEL 108 MEQ/L (98-107); CREATININE FOR GFR 0.89 MG/DL (0.70-1.30); GLOMERULAR FILTRATION RATE > 60.0 (>49); GLUCOSE, FASTING 218 MG/DL (70-100); SODIUM LEVEL 137 MEQ/L (136-145); TOTAL PROTEIN 5.7 GM/DL (6.4-8.2)
[2020-03-06] MEDS ORDERED: METOCLOPRAMIDE INJ 10MG/2ML VIAL (J2765 PER 1) As Ordered ONE ×2 (05:59→06:48)
[2020-03-06] MEDS ORDERED: METOCLOPRAMIDE INJ 10MG/2ML VIAL (J2765 PER 1) IV ONE (06:12)
--- NOTE | 2020-03-06 06:19 | CR.PDOC ---
General Date of Consultation: March 06, 2020 Referring Provider: MALI RAMEY MD Attending Physician: ANTONIA ROMERO MD Consultation Primary physician/ hospitalist: -Dr. Ramey Reason for consult: -Hematemesis HPI: 65-year-old male patient with HTN, DM type II, prior heavy alcohol use, (quit around October 2018), alcoholic liver cirrhosis ( CTP A, MELD-Na 9), presented to ED with complaints of acute onset hematemesis after eating dinner. GI was consulted for the same Patient reports 1 episode of large-volume hematemesis at home, not associated with any abdominal pain. Patient does report having back pain and taking naproxen for the past few days. Patient does have generalized weakness and feeling lightheaded. In ER, patient had labs, which showed drop in hemoglobin levels to 7.5. Patient had at least 1 melanotic stools overnight. Pertinent negative GI symptoms: Patient denies fever, sick contacts, recent travel, nausea, diarrhea, abdominal pain, loss of appetite, early satiety or unintentional weight loss. No history of hematemesis, or hematochezia. Patient reports regular bowel movements. Review of Systems: GI: as stated above CVS: No chest pain, No palpitations, No leg swelling. RS: No Shortness of breath, No Wheezing, no cough HUMAN RESOURCES BENEFITS COORDINATOR: No dizziness, No motor weakness, No sensory problems Hematology: No bruising, No gum bleeding, Musculoskeletal: No joint pain, ambulating well. Skin: No rash : No hematuria, No burning sensation of the urine ENT: No ear discharge/ pain, No dysphagia. Eyes: No photophobia. Jaundice Home medications: reviewed. Antithrombotic agents: -Aspirin 81 MG Medical h/o: As above. Surgical h/o: None on abdomen. Social h/o: Alcohol: Denies any further alcohol use, smoking: Denies , IVDA/ drugs: Denies . Family h/o of GI cancers - None Prior Endoscopies: Had EGD and Colonosocpy - for variceal screening and Colon cancer screening respectively in February 2019 - Noted large Esophageal varices, and few colon polyps- removed. Was recommended Propranolol prophylaxis. Prior GI evaluations: - Following with me in Gi clinic. Exam: Vitals: reviewed General: Alert and oriented x 3, Mild distress due to nausea and vomiting. HEENT: Noted conjunctival pallor, no icterus. Normal oropharynx, NO cervical lymph nodes. Chest: symmetric with bilateral clear air entry, CVS: S1, S2 heard, normal, no murmurs . Abdomen: non-distended, no surgical scars, soft, non-tender, no palpable masses, normal bowel sounds heard. Rectal exam: Patient refused / Deferred at this time in view of scheduled colonoscopy. Extremities: no pedal edema, pulses palpable. HUMAN RESOURCES BENEFITS COORDINATOR: no focal motor or sensory deficits. Moves all extremities Skin: no rash. Labs: reviewed. Impression: - Hematemesis -- likely from esophageal variceal bleeding vs less likely PUD. - Alcoholic liver cirrhosis ( CTP A, MELD- Na 9) with dilated portal vein with ascites in past but recent Ultrasound abdomen in January 2020 showed resolution of ascites, EGD in February 2019 showed large esophageal varices, No prior hepatic encephalopathy. Quit alcohol since Oct 2018. Recommendations: - Patient educated about the test results, possible differential diagnoses and All questions answered. - Monitor hemoglobin and hematocrit every 8 hours, and transfuse as needed to keep hemoglobin around 7-8 g/dL - IV antibiotics (prefer ceftriaxone 1 g daily, if not contraindicated). - IV PPI for now - Start on octreotide (bolus followed by IV drip ) - Patient is scheduled for urgent EGD after adequate resuscitation. - The procedure, indications, risks (bleeding, perforation, infection, hypotension, respiratory depression, allergy, need for endotracheal intubation, surgery, colostomy, cardiac arrest, even ), benefits, limitations (e.g., m issing a lesion), and all other alternatives (including no intervention) were explained to the patient who understood and agreed for the procedure. - Please follow up Ray to report for postprocedure recommendations. Plan of care discussed with patient and primary team. Patient verbalized understanding and agreed with the plan. Addendum: Post procedure recommendations as per the operative report: - No ibuprofen, naproxen, or other non-steroidal anti-inflammatory drugs. Hold aspirin 81 mg for today and can resume from tomorrow. - Continue present medications. - NPO for 6 hours and then start on clear liquid diet for 24 hours and then advance if tolerated to low sodium diet ( <2gm per day). - IV PPI drip for 24 hours and then switch to oral PPI for total of 6 weeks. - Continue IV Octreotide drip of 50mcg/hr for 3- 5 days - Antibiotics (ceftriaxone - 1 gm once daily if not contra-indicated) for total of 7 days. ( if being discharged can switch to Oral ciprofloxacin). - Monitor Hemoglobin/Hematocrit every 6 - 8 hours: transfuse as needed to maintain Hb around 7-8. ( Do Not transfuse over that level). - ICU/PCU monitoring for 24 hours. - Do Not place NG or OG tube. - Give antiemetics IV PRN for 24 hours. - Update GI if any acute change in status. - At the time of discharge, please re-start on non selective betablocker ( prefer propranolol)-- dose titrated based on the BP and heart rate ( goal 55 - 60 / min). - Upon discharge please give outpatient appointment in GI clinic in 2-3 weeks. ( please call [phone]). - Return to primary care physician Vital Signs/I&O Vital Signs Date Time Temp Pulse Resp B/P (MAP) Pulse Ox O2 Delivery O2 Flow Rate FiO2 03/06/20 05:20 98.1 74 18 124/70 100 Room Air 03/06/20 00:10 98.0 I&O- Last 24 Hours up to 6 AM 03/06/20 06:00 Intake Total 2402 ml Output Total 250 ml Balance 2152 ml Laboratory Data Labs 24H Laboratory Tests 2 03/05/20 21:14: Immature Granulocyte % (Auto) 0.2, Neutrophils (%) (Auto) 64.6, Lymphocytes (%) (Auto) 23.2L, Monocytes (%) (Auto) 9.8H, Eosinophils (%) (Auto) 2.0, Basophils (%) (Auto) 0.2, Neutrophils # (Auto) 5.7, Lymphocytes # (Auto) 2.0, Monocytes # (Auto) 0.9H, Eosinophils # (Auto) 0.2, Basophils # (Auto) 0.0, Nucleated Red Blood Cells % (auto) 0.0, Prothrombin Time 15.4H, Prothromb Time International Ratio 1.25, Activated Partial Thromboplast Time 27.3, Anion Gap 5L, Glomerular Filtration Rate > 60.0, Calcium Level 7.7L 03/06/20 00:40: Coronavirus (COVID-19)(PCR) NEGATIVE 03/06/20 03:07: Nucleated Red Blood Cells % (auto) 0.0, Anion Gap 7L, Glomerular Filtration Rate > 60.0, Calcium Level 7.5L, Immature Platelet Fraction 6.1, Lactic Acid Level 1.4, Magnesium Level 2.0, Total Bilirubin 0.7, Aspartate Amino Transf (AST/SGOT) 16, Alanine Aminotransferase (ALT/SGPT) 27, Alkaline Phosphatase 79, Total Protein 5.7L, Albumin 3.0L, Albumin/Globulin Ratio 1.1 CBC/BMP Laboratory Tests 03/05/20 21:14 03/06/20 03:07 Allergies Coded Allergies: Lynch (Verified Allergy, Severe, throat swelling, 04/05/19) Home Medications Scheduled Aspirin (Aspir 81) 81 Mg Tablet.dr, 81 MG PO DAILY, (Reported) Chlorpheniramine Maleate (Chlorpheniramine Maleate) 4 Mg Tablet, 4 MG PO DAILY, (Reported) Diltiazem HCl (Dilt-Xr) 240 Mg Cap.er.deg, 240 MG PO DAILY, (Reported) Losartan Potassium (Losartan Potassium) 50 Mg Tablet, 50 MG PO QHS, (Reported) Metformin HCl (Metformin HCl ER) 500 Mg Tab.er.24h, 500 MG PO QPM, (Reported) Naproxen Sodium (Naproxen Sodium Cr) 500 Mg Tbmp.24hr, 500 MG PO QPM, (Reported) Omeprazole (Omeprazole) 20 Mg Capsule.dr, 20 MG PO DAILY, (Reported) Propranolol HCl (Propranolol HCl) 10 Mg Tablet, 10 MG PO BID, (Reported) Salmeterol/Fluticasone (Advair 250-50 Diskus) 1 Each Blst.w.dev, BID, (Reported) Sildenafil Citrate (Viagra) 50 Mg Tablet, 50 MG PO PRN, (Reported) Scheduled PRN Methocarbamol (Methocarbamol) 500 Mg Tablet, 500 MG PO QID PRN for MUSCLE SPASMS, (Reported) ANTONIA ROMERO MD March 06, 2020 06:19
[2020-03-06] MEDS ORDERED: fentaNYL 100 MCG/2 ML INJECTION (J3010) As Ordered ONE (06:20)
[2020-03-06] MEDS ORDERED: propofoL 200 MG/20 ML VIAL As Ordered ONE (06:20)
[2020-03-06] MEDS ORDERED: ROCURONIUM BROMIDE 50 MG/5 ML VIAL As Ordered ONE (06:20)
[2020-03-06] MEDS ORDERED: SUCCINYLCHOLINE 100 MG/5 ML SYRINGE (J0330) As Ordered ONE (06:20)
[2020-03-06] MEDS ORDERED: LIDOCAINE 2% 100MG/5ML SDV (FOR ANES.) As Ordered ONE (06:20)
[2020-03-06] MEDS ORDERED: dexameTHASONE 4 MG/ML 1ML VIAL (J1100 PER 1MG) As Ordered ONE (06:48)
[2020-03-06] MEDS ORDERED: ONDANSETRON 4MG/2ML VIAL As Ordered ONE (06:48)
--- NOTE | 2020-03-06 07:00 | ROOR ---
Patient Name: Oscar Vegas Procedure Date: 03/06/2020 5:25 AM Date of : 1955 Age: 65 Room: Main OR Gender: Male Note Status: Finalized Procedure: Upper GI endoscopy Indications: Hematemesis Providers: Bernardo Shaw MD Referring MD: Staci Samaniego Md Requesting Provider: Medicines: Monitored Anesthesia Care Complications: No immediate complications. Procedure: Pre-Anesthesia Assessment: - Prior to the procedure, a History and Physical was performed, and patient medications and allergies were reviewed. The patient is competent. The risks and benefits of the procedure and the sedation options and risks were discussed with the patient. All questions were answered and informed consent was obtained. Patient identification and proposed procedure were verified by the physician, the nurse and the anesthesiologist in the procedure room. Mental Status Examination: alert and oriented. Airway Examination: normal oropharyngeal airway and neck mobility. Respiratory Examination: clear to auscultation. CV Examination: normal. Prophylactic Antibiotics: The patient does not require prophylactic antibiotics. Prior Anticoagulants: The patient has taken no previous anticoagulant or antiplatelet agents. ASA Grade Assessment: III - A patient with severe systemic disease. After reviewing the risks and benefits, the patient was deemed in satisfactory condition to undergo the procedure. The anesthesia plan was to use monitored anesthesia care (MAC). Immediately prior to administration of medications, the patient was re-assessed for adequacy to receive sedatives. The heart rate, respiratory rate, oxygen saturations, blood pressure, adequacy of pulmonary ventilation, and response to care were monitored throughout the procedure. The physical status of the patient was re-assessed after the procedure. The Endoscope was introduced through the mouth, and advanced to the second part of duodenum. The upper GI endoscopy was accomplished without difficulty. The patient tolerated the procedure well. Findings: Three columns of oozing grade III varices were found in the lower third of the esophagus,. Stigmata of recent bleeding were evident and red silvano signs were present. Five bands were successfully placed. There was no bleeding at the end of the procedure. Red blood was found in the gastric fundus and in the gastric body. There is no endoscopic evidence of ulceration in the gastric antrum. The duodenal bulb and second portion of the duodenum were normal. Impression: - Bleeding grade III esophageal varices. Banded. - Red blood in the gastric fundus and in the gastric body. - Normal duodenal bulb and second portion of the duodenum. - No specimens collected. Recommendation: - Patient has a contact number available for emergencies. The signs and symptoms of potential delayed complications were discussed with the patient. Return to normal activities tomorrow. Written discharge instructions were provided to the patient. - No ibuprofen, naproxen, or other non-steroidal anti-inflammatory drugs. - Continue present medications. - NPO for 6 hours and then start on clear liquid diet for 24 hours and then advance if tolerated to low sodium diet ( <2gm per day). - IV PPI drip for 24 hours and then switch to oral PPI for total of 6 weeks. - Continue IV Octreotide drip of 50mcg/hr for 3- 5 days - Antibiotics (ceftriaxone - 1 gm once daily if not contra-indicated) for total of 7 days. ( if being discharged can switch to Oral ciprofloxacin). - Monitor Hemoglobin/Hematocrit every 6 - 8 hours: transfuse as needed to maintain Hb around 7-8. ( Do Not transfuse over that level). - ICU/PCU monitoring for 24 hours. - Do Not place NG or OG tube. - Give antiemetics IV PRN for 24 hours. - Update GI if any acute change in status. - At the time of discharge, please start on non selective betablocker ( prefer propranolol)-- dose titrated based on the BP and heart rate ( goal 55 - 60 / min). - Upon discharge please give outpatient appointment in GI clinic in 2-3 weeks. ( please call [phone]). - Return to primary care physician. Bernardo Shaw MD Bernardo Shaw MD 03/06/2020 6:59:15 AM Electronically signed by Bernardo Shaw MD Number of Addenda: 0 Note Initiated On: 03/06/2020 5:25 AM Estimated Blood Loss: Estimated blood loss was minimal.
[2020-03-06] MEDS: ADVAIR HFA 115/21MCG INHALER INH SCH ×2 (08:14→20:18)
[2020-03-06] MEDS: PANTOPRAZOLE 40MG VIAL (C9113 PER 1) IV SCH ×2 (08:22→21:05)
[2020-03-06] MEDS: cefTRIAXone SOD 1 GM in D5W MINI-BAG PLUS 50 ML IV SCH (08:22)
[2020-03-06] MEDS ORDERED: ASPIRIN 81 MG ENTERIC TAB PO SCH (09:00)
[2020-03-06] MEDS ORDERED: FLUBLOK(EGG FREE)(QUAD)INFLUENZA VACC 0.5ML SYRINGE (90682)18YRS&OLDER IM ONE (09:00)
[2020-03-06 11:21] LABS: HEMATOCRIT 26.2 % (42.0-52.0); HEMOGLOBIN 8.9 g/dl (13.5-17.5); MEAN CORPUSCULAR HEMOGLOBIN 29.1 pg (27.0-33.0); MEAN CORPUSCULAR VOLUME 85.6 fl (80.0-96.0); RED BLOOD COUNT 3.06 10^6/uL (4.30-6.10); WHITE BLOOD COUNT 8.8 10^3/uL (4.0-10.0)
[2020-03-06 11:22] LABS: PLATELET COUNT, AUTOMATED 97 10^3/uL (150-450)
[2020-03-06 11:44] LABS: BLOOD UREA NITROGEN 31 MG/DL (7-18); CALCIUM LEVEL 7.4 MG/DL (8.8-10.2); CARBON DIOXIDE LEVEL 22 MEQ/L (21-32); CHLORIDE LEVEL 108 MEQ/L (98-107); CREATININE FOR GFR 0.82 MG/DL (0.70-1.30); GLOMERULAR FILTRATION RATE > 60.0 (>49); GLUCOSE, FASTING 201 MG/DL (70-100); POTASSIUM SERUM 5.1 MEQ/L (3.5-5.1); SODIUM LEVEL 137 MEQ/L (136-145)
[2020-03-06] MEDS ORDERED: GLUCAGON INJ 1MG VIAL SC PRN (12:30)
[2020-03-06] MEDS ORDERED: GLUCOSE 4GM CHEW TABLET PO PRN (12:30)
[2020-03-06] MEDS ORDERED: DEXTROSE 50% 50 ML SYRINGE IV PRN (12:30)
--- NOTE | 2020-03-06 14:05 | IPNPDOC ---
Text Note Date of Service The patient was seen on 03/06/20. NOTE Subjective: Patient tolerated EGD well. Patient denied any fever, chills, sarah sea, vomiting, chest pain, palpitations diarrhea or dysuria Objective: VITAL SIGNS: Please see below. GENERAL: awake, alert, NAD HEENT: NCAT, anicteric sclera, BILL NECK: supple, no JVD CARDIOVASCULAR EXAMINATION: NS1S2, regular rate/rhythm RESPIRATORY EXAMINATION: CTA b/l, no wheezes/rales/rhonchi ABDOMINAL EXAMINATION: positive bowel sounds x 4, NT EXTREMITIES: no cyanosis, clubbing, edema SKIN: warm, no rashes. NEUROLOGICAL EXAMINATION: AAO x 3, no motor/sensory deficits Patient's status male with past history of alcohol abuse, cirrhosis with esophageal varices and ascites gastric ulcer presented hospital with hematemesis and acute blood loss anemia. On 03/06/20 EGD was done, patient was found to have bleeding grade III esophageal varices. Banded Upper GI bleed/acute blood loss anemia Secondary to esophageal varices bleed EGD was done. Patient was found to have three columns of oozing grade III varices were found in the lower third of the esophagus, five bands were successfully placed. Will start with clear liquid diet for next 24 hours Continue IV PPI for next 24 hours Continue IV Octreotide drip of 50 mcg/hr for 3- 5 days Continue ceftriaxone IV H&H every 6 hours Zofran when necessary We will start propranolol many discharge patient GI team follows him Hypertension Blood pressures under control Will restart his home meds tomorrow with parameters Diabetes mellitus Insulin sliding scale GERD Continue PPI Alcoholic liver cirrhosis LFT unremarkable Continue to monitor Asthma Not in acute exacerbation Continue home inhalers VS,Fishbone, I+O VS, Fishbone, I+O Laboratory Tests 03/05/20 21:14 03/06/20 03:07 03/06/20 10:54 Vital Signs Date Time Temp Pulse Resp B/P (MAP) Pulse Ox O2 Delivery O2 Flow Rate FiO2 03/06/20 12:00 97.1 92 18 117/71 (86) 97 Nasal Cannula 2.0 I&O- Last 24 Hours up to 6 AM 03/06/20 06:00 Intake Total 2402 ml Output Total 250 ml Balance 2152 ml CHRISTINE HENDERSON DO March 06, 2020 14:05
[2020-03-06 14:56] LABS: HEMATOCRIT 26.9 % (42.0-52.0)
[2020-03-06] MEDS: HumaLOG INSULIN (NovoLOG) PER UNIT SC SCH ×2 (17:50→21:00)
[2020-03-06 20:03] LABS: HEMATOCRIT 26.1 % (42.0-52.0); HEMOGLOBIN 8.6 g/dl (13.5-17.5)
[2020-03-06] MEDS: LOSARTAN 50MG TABLET PO SCH (21:05)
[2020-03-07] VITALS: BP 138/75
[2020-03-07 02:16] LABS: HEMATOCRIT 23.7 % (42.0-52.0); HEMOGLOBIN 7.8 g/dl (13.5-17.5)
[2020-03-07 04:00] VITALS: BP 141/79
[2020-03-07 05:31] LABS: HEMATOCRIT 23.7 % (42.0-52.0); HEMOGLOBIN 7.8 g/dl (13.5-17.5); MEAN CORPUSCULAR HEMOGLOBIN 28.3 pg (27.0-33.0); MEAN CORPUSCULAR HGB CONC 32.9 g/dl (32.0-36.5); MEAN CORPUSCULAR VOLUME 85.9 fl (80.0-96.0); PLATELET COUNT, AUTOMATED 110 10^3/uL (150-450); RED BLOOD COUNT 2.76 10^6/uL (4.30-6.10); WHITE BLOOD COUNT 11.6 10^3/uL (4.0-10.0)
[2020-03-07 06:00] LABS: ALBUMIN 2.8 GM/DL (3.2-5.2); ALT/SGPT 29 U/L (12-78); BILIRUBIN,TOTAL 0.6 MG/DL (0.2-1.0); BLOOD UREA NITROGEN 24 MG/DL (7-18); CALCIUM LEVEL 7.4 MG/DL (8.8-10.2); CARBON DIOXIDE LEVEL 22 MEQ/L (21-32); CHLORIDE LEVEL 106 MEQ/L (98-107); CREATININE FOR GFR 0.92 MG/DL (0.70-1.30); GLOMERULAR FILTRATION RATE > 60.0 (>49); GLUCOSE, FASTING 154 MG/DL (70-100); POTASSIUM SERUM 4.3 MEQ/L (3.5-5.1); SODIUM LEVEL 137 MEQ/L (136-145); TOTAL PROTEIN 5.5 GM/DL (6.4-8.2)
[2020-03-07] MEDS: ADVAIR HFA 115/21MCG INHALER INH SCH ×2 (07:59→20:17)
[2020-03-07 08:00] VITALS: BP 133/69
[2020-03-07] MEDS: PANTOPRAZOLE 40MG VIAL (C9113 PER 1) IV SCH ×2 (08:13→21:01)
[2020-03-07] MEDS: cefTRIAXone SOD 1 GM in D5W MINI-BAG PLUS 50 ML IV SCH (08:13)
[2020-03-07] MEDS: HumaLOG INSULIN (NovoLOG) PER UNIT SC SCH ×4 (08:13→20:54)
[2020-03-07 11:44] VITALS: BP 125/61
--- NOTE | 2020-03-07 12:12 | IPNPDOC ---
Text Note Date of Service The patient was seen on 03/07/20. NOTE Subjective: No any acute events overnight. Patient denied any blood in the stool or hematemesis Patient denied any fever, chills, nausea, vomiting, chest pain, palpitations, diarrhea or dysuria Objective: VITAL SIGNS: Please see below. GENERAL: awake, alert, NAD HEENT: NCAT, anicteric sclera, BILL NECK: supple, no JVD CARDIOVASCULAR EXAMINATION: NS1S2, regular rate/rhythm RESPIRATORY EXAMINATION: CTA b/l, no wheezes/rales/rhonchi ABDOMINAL EXAMINATION: positive bowel sounds x 4, NT EXTREMITIES: no cyanosis, clubbing, edema SKIN: warm, no rashes. NEUROLOGICAL EXAMINATION: AAO x 3, no motor/sensory deficits Assessment and plan: Patient's status male with past history of alcohol abuse, cirrhosis with esophageal varices and ascites gastric ulcer presented hospital with hematemesis and acute blood loss anemia. On 03/06/20 EGD was done, patient was found to have bleeding grade III esophageal varices. Banded Upper GI bleed/acute blood loss anemia Secondary to esophageal varices bleed EGD was done. Patient was found to have three columns of oozing grade III varices were found in the lower third of the esophagus, five bands were successfully placed. Full liquid today Continue IV PPI Continue IV Octreotide drip of 50 mcg/hr for 3- 5 days Continue ceftriaxone IV H&H every 6 hours Zofran when necessary We will start propranolol when we dc patient GI team follows him On 03/07/20 Hemoglobin is 7.8. We will transfuse if it's less than 7 Hypertension Blood pressures under control Will restart his home meds tomorrow with parameters Diabetes mellitus Insulin sliding scale GERD Continue PPI Alcoholic liver cirrhosis LFT unremarkable Continue to monitor Asthma Not in acute exacerbation Continue home inhalers VS,Fishbone, I+O VS, Fishbone, I+O Laboratory Tests 03/06/20 14:24 03/06/20 19:43 03/07/20 02:01 03/07/20 04:57 Vital Signs Date Time Temp Pulse Resp B/P (MAP) Pulse Ox O2 Delivery O2 Flow Rate FiO2 03/07/20 11:44 98.7 82 18 125/61 (82) 95 Room Air 03/07/20 08:00 1.0 I&O- Last 24 Hours up to 6 AM 03/07/20 06:00 Intake Total 1535 ml Output Total 850 ml Balance 685 ml CHRISTINE HENDERSON DO March 07, 2020 12:12
[2020-03-07 12:37] LABS: HEMATOCRIT 23.9 % (42.0-52.0); HEMOGLOBIN 7.7 g/dl (13.5-17.5)
[2020-03-07 17:54] VITALS: BP 127/67
[2020-03-07 18:27] LABS: HEMATOCRIT 23.4 % (42.0-52.0); HEMOGLOBIN 7.7 g/dl (13.5-17.5)
[2020-03-07] MEDS: LOSARTAN 50MG TABLET PO SCH (21:01)
[2020-03-07 22:00] VITALS: BP 126/66
[2020-03-07] MEDS: OCTREOTIDE ACETATE 1,200 MCG in NS 238.8 ML IV SCH (22:15)
[2020-03-08 00:30] LABS: HEMATOCRIT 21.6 % (42.0-52.0)
[2020-03-08 05:18] LABS: HEMATOCRIT 21.8 % (42.0-52.0); HEMOGLOBIN 7.1 g/dl (13.5-17.5); MEAN CORPUSCULAR HEMOGLOBIN 28.5 pg (27.0-33.0); MEAN CORPUSCULAR HGB CONC 32.6 g/dl (32.0-36.5); MEAN CORPUSCULAR VOLUME 87.6 fl (80.0-96.0); RED BLOOD COUNT 2.49 10^6/uL (4.30-6.10); WHITE BLOOD COUNT 5.5 10^3/uL (4.0-10.0)
[2020-03-08 05:22] LABS: PLATELET COUNT, AUTOMATED 70 10^3/uL (150-450)
[2020-03-08 05:45] LABS: ALBUMIN 2.8 GM/DL (3.2-5.2); ALT/SGPT 27 U/L (12-78); BILIRUBIN,TOTAL 0.4 MG/DL (0.2-1.0); BLOOD UREA NITROGEN 19 MG/DL (7-18); CALCIUM LEVEL 7.5 MG/DL (8.8-10.2); CARBON DIOXIDE LEVEL 25 MEQ/L (21-32); CHLORIDE LEVEL 108 MEQ/L (98-107); CREATININE FOR GFR 0.82 MG/DL (0.70-1.30); GLOMERULAR FILTRATION RATE > 60.0 (>49); GLUCOSE, FASTING 145 MG/DL (70-100); POTASSIUM SERUM 4.1 MEQ/L (3.5-5.1); SODIUM LEVEL 140 MEQ/L (136-145); TOTAL PROTEIN 5.4 GM/DL (6.4-8.2)
[2020-03-08 06:00] VITALS: BP 112/68
[2020-03-08] MEDS: ADVAIR HFA 115/21MCG INHALER INH SCH ×2 (07:33→19:54)
[2020-03-08] MEDS: PANTOPRAZOLE 40MG VIAL (C9113 PER 1) IV SCH ×2 (08:15→20:29)
[2020-03-08] MEDS: cefTRIAXone SOD 1 GM in D5W MINI-BAG PLUS 50 ML IV SCH (08:15)
[2020-03-08] MEDS: HumaLOG INSULIN (NovoLOG) PER UNIT SC SCH ×4 (08:17→20:30)
[2020-03-08] MEDS ORDERED: MIRALAX *UNIT DOSE* 17GM PACKET PO ONE (10:30)
[2020-03-08] MEDS ORDERED: FUROSEMIDE 20MG/2ML VIAL (J1940) IV ONE (10:30)
[2020-03-08 12:08] LABS: BASO % 0.3 % (0.0-1.0); EOS # 0.1 10^3/uL (0.0-0.5); EOS % 1.8 % (0.0-3.0); HEMATOCRIT 22.5 % (42.0-52.0); HEMOGLOBIN 7.2 g/dl (13.5-17.5); LYMPH # 1.4 10^3/uL (1.5-5.0); MEAN CORPUSCULAR VOLUME 87.5 fl (80.0-96.0); MONO # 0.7 10^3/uL (0.0-0.8); NEUTROPHILS # 4.9 10^3/uL (1.5-8.5); NEUTROPHILS % 68.3 % (36.0-66.0); RED BLOOD COUNT 2.57 10^6/uL (4.30-6.10); WHITE BLOOD COUNT 7.1 10^3/uL (4.0-10.0)
[2020-03-08 12:09] LABS: PLATELET COUNT, AUTOMATED 77 10^3/uL (150-450)
[2020-03-08 12:34] LABS: BLOOD UREA NITROGEN 19 MG/DL (7-18); CREATININE FOR GFR 0.88 MG/DL (0.70-1.30); GLOMERULAR FILTRATION RATE > 60.0 (>49)
--- NOTE | 2020-03-08 13:15 | IPNPDOC ---
Text Note Date of Service The patient was seen on 03/08/20. NOTE Subjective: No any acute events overnight. Patient stated that he noticed red blood in his stool Patient denied any fever, chills, nausea, vomiting, chest pain, palpitations, di arrhea or dysuria Objective: VITAL SIGNS: Please see below. GENERAL: awake, alert, NAD HEENT: NCAT, anicteric sclera, BILL NECK: supple, no JVD CARDIOVASCULAR EXAMINATION: NS1S2, regular rate/rhythm RESPIRATORY EXAMINATION: CTA b/l, no wheezes/rales/rhonchi ABDOMINAL EXAMINATION: positive bowel sounds x 4, NT EXTREMITIES: no cyanosis, clubbing, edema SKIN: warm, no rashes. NEUROLOGICAL EXAMINATION: AAO x 3, no motor/sensory deficits Assessment and plan: Patient's status male with past history of alcohol abuse, cirrhosis with esophageal varices and ascites gastric ulcer presented hospital with hematemesis and acute blood loss anemia. On 03/06/20 EGD was done, patient was found to have bleeding grade III esophageal varices. Banded Upper GI bleed/acute blood loss anemia Secondary to esophageal varices bleed EGD was done. Patient was found to have three columns of oozing grade III varice s were found in the lower third of the esophagus, five bands were successfully placed. Full liquid today Continue IV PPI Continue IV Octreotide drip of 50 mcg/hr for 3- 5 days Continue ceftriaxone IV H&H every 6 hours Zofran when necessary We will start propranolol when we dc patient GI team follows him On 03/07/20 Hemoglobin is 7.8. We will transfuse if it's less than 7 On 03/08/20 hemoglobin 7.1. We will proceed with abdominal ultrasound. MiraLAX for now Hypertension Blood pressures under control Will restart his home meds tomorrow with parameters Diabetes mellitus Insulin sliding scale GERD Continue PPI Alcoholic liver cirrhosis LFT unremarkable Continue to monitor Asthma Not in acute exacerbation Continue home inhalers VS,Fishbone, I+O VS, Fishbone, I+O Laboratory Tests 03/07/20 18:19 03/08/20 00:17 03/08/20 04:54 03/08/20 11:40 Vital Signs Date Time Temp Pulse Resp B/P (MAP) Pulse Ox O2 Delivery O2 Flow Rate FiO2 03/08/20 08:17 83 125/66 03/08/20 06:00 98.4 17 96 Room Air 03/07/20 08:00 1.0 I&O- Last 24 Hours up to 6 AM 03/08/20 06:00 Intake Total 2880 ml Output Total 600 ml Balance 2280 ml CHRISTINE HENDERSON DO March 08, 2020 13:15
--- NOTE | 2020-03-08 14:11 | REP ---
ABDOMINAL SURVEY SONOGRAPHY: HISTORY: Rule out ascites. FINDINGS: Four-quadrant scanning demonstrates a trace of abdominal ascites. No significant amount of ascites seen. IMPRESSION: Only trace of ascites visible. Electronically Signed by Ricardo Galicia MD 03/08/2020 02:43 P
[2020-03-08 14:45] VITALS: BP 122/60
--- NOTE | 2020-03-08 18:28 | IPNPDOC ---
Date Seen The patient was seen on 03/08/20. Progress Note Interval history: Patient reports feeling better without any further episodes of nausea or vomi ting and he tolerated regular diet yesterday. Patient does report having darker stools for the past 3 days, which are solid/formed bowel movements, once a day, and today had some blood in stools. Patient denies any diarrhea and no further bowel movements since morning. Labs showed slight trend down of hemoglobin, but above 7gm/ dL. Exam: Vitals: reviewed General: Alert and oriented x 3, not in distress Abdomen: non-distended, no surgical scars, soft, non-tender, no palpable masses, normal bowel sounds heard. Extremities: Slight swelling of the left upper extremity and minimal pitting edema. Labs: reviewed. Imaging: reviewed. Endoscopy - For detailed procedure report, please review the operative note. Impression: -- Acute Gi bleeding and anemia post GI bleeding s/p EGD on 03/06/2020 -- noted large esophageal varices, with signs of bleeding, s/p banding, large blood clot in gastric fundus limiting exam of the fundus. The slight drop in hemoglobin likely from dilutional effect and sloughing of bands. - Alcoholic liver cirrhosis ( CTP A, MELD- Na 9) with dilated portal vein with ascites in past but recent Ultrasound abdomen in January 2020 showed resolution of ascites, EGD in February 2019 showed large esophageal varices, No prior hepatic encephalopathy. Quit alcohol since Oct 2018. Recommendations: - Patient educated about the test results, possible differential diagnoses and All questions answered. - Avoid ibuprofen, naproxen, or other non-steroidal anti-inflammatory drugs. - Continue present medications. - Will place patient back on clear liquid diet for today and give miralax today to clear old blood. - Will obtain Ultrasound abdomen to check for ascites ( due to suspicion on clinical exam). - Also give low dose lasix 20 mg IV once today - Switch IV PPI to oral PPI - Continue IV Octreotide drip of 50mcg/hr for 3- 5 days - Antibiotics (ceftriaxone - 1 gm once daily if not contra-indicated) for total of 7 days. ( if being discharged can switch to Oral ciprofloxacin). - Monitor Hemoglobin/Hematocrit every 8 hours: transfuse as needed to maintain Hb around 7-8. ( Do Not transfuse over that level). - Give antiemetics IV PRN - At the time of discharge, please re-start on non selective betablocker ( prefer propranolol)-- dose titrated based on the BP and heart rate ( goal 55 - 60 / min). - Upon discharge please give outpatient appointment in GI clinic in 2-3 weeks. ( please call [phone]). Plan of care discussed with patient and primary team. Patient verbalized understanding and agreed with the plan. VS, I&O, 24H, Fishbone Vital Signs/I&O Vital Signs Date Time Temp Pulse Resp B/P (MAP) Pulse Ox O2 Delivery O2 Flow Rate FiO2 03/08/20 14:45 97.3 75 20 122/60 (80) 95 Room Air 03/07/20 08:00 1.0 I&O- Last 24 Hours up to 6 AM 03/08/20 06:00 Intake Total 2880 ml Output Total 600 ml Balance 2280 ml Laboratory Data 24H LABS Laboratory Tests 2 03/07/20 19:50: Bedside Glucose (Misc Panel) 180H 03/08/20 04:54: Nucleated Red Blood Cells % (auto) 0.0, Immature Platelet Fraction 3.9, Anion Gap 7L, Glomerular Filtration Rate > 60.0, Calcium Level 7.5L, Total Bilirubin 0.4, Aspartate Amino Transf (AST/SGOT) 20, Alanine Aminotransferase (ALT/SGPT) 27, Alkaline Phosphatase 55, Total Protein 5.4L, Albumin 2.8L, Albumin/Globulin Ratio 1.1 03/08/20 11:40: Nucleated Red Blood Cells % (auto) 0.0, Glomerular Filtration Rate > 60.0, Immature Granulocyte % (Auto) 0.6, Neutrophils (%) (Auto) 68.3H, Lymphocytes (%) (Auto) 19.0L, Monocytes (%) (Auto) 10.0H, Eosinophils (%) (Auto) 1.8, Basophils (%) (Auto) 0.3, Neutrophils # (Auto) 4.9, Lymphocytes # (Auto) 1.4L, Monocytes # (Auto) 0.7, Eosinophils # (Auto) 0.1, Basophils # (Auto) 0.0 03/08/20 11:41: Bedside Glucose (Misc Panel) 170H 03/08/20 16:36: Bedside Glucose (Misc Panel) 139H CBC/BMP Laboratory Tests 5/20/20 00:17 03/08/20 04:54 03/08/20 11:40 ANTONIA ROMERO MD March 08, 2020 18:28
[2020-03-08 19:26] LABS: HEMATOCRIT 21.5 % (42.0-52.0)
[2020-03-08 19:52] VITALS: BP 127/78
[2020-03-08 20:01] LABS: HEMOGLOBIN 6.9 g/dl (13.5-17.5)
[2020-03-08] MEDS: LOSARTAN 50MG TABLET PO SCH (20:30)
[2020-03-08] MEDS: OCTREOTIDE ACETATE 1,200 MCG in NS 238.8 ML IV SCH (22:12)
[2020-03-09] VITALS (7 sets, daily range): BP systolic 123–130; BP diastolic 65–78
[2020-03-09] MEDS: ADVAIR HFA 115/21MCG INHALER INH SCH (07:47)
[2020-03-09] MEDS: HumaLOG INSULIN (NovoLOG) PER UNIT SC SCH ×2 (08:44→13:02)
[2020-03-09] MEDS: PANTOPRAZOLE 40MG VIAL (C9113 PER 1) IV SCH (08:44)
[2020-03-09] MEDS: cefTRIAXone SOD 1 GM in D5W MINI-BAG PLUS 50 ML IV SCH (08:45)
[2020-03-09] MEDS ORDERED: MIRALAX *UNIT DOSE* 17GM PACKET PO SCH (09:00)
[2020-03-09] MEDS ORDERED: FUROSEMIDE 20MG/2ML VIAL (J1940) IV SCH (09:00)
[2020-03-09 09:40] LABS: HEMATOCRIT 24.1 % (42.0-52.0); HEMOGLOBIN 7.6 g/dl (13.5-17.5); MEAN CORPUSCULAR HEMOGLOBIN 28.3 pg (27.0-33.0); MEAN CORPUSCULAR HGB CONC 31.5 g/dl (32.0-36.5); MEAN CORPUSCULAR VOLUME 89.6 fl (80.0-96.0); RED BLOOD COUNT 2.69 10^6/uL (4.30-6.10); WHITE BLOOD COUNT 4.5 10^3/uL (4.0-10.0)
[2020-03-09 09:43] LABS: PLATELET COUNT, AUTOMATED 68 10^3/uL (150-450)
[2020-03-09 10:12] LABS: ALT/SGPT 32 U/L (12-78); BLOOD UREA NITROGEN 13 MG/DL (7-18); CALCIUM LEVEL 7.8 MG/DL (8.8-10.2); CARBON DIOXIDE LEVEL 28 MEQ/L (21-32); CHLORIDE LEVEL 106 MEQ/L (98-107); CREATININE FOR GFR 0.85 MG/DL (0.70-1.30); GLOMERULAR FILTRATION RATE > 60.0 (>49); GLUCOSE, FASTING 204 MG/DL (70-100); SODIUM LEVEL 138 MEQ/L (136-145); TOTAL PROTEIN 5.6 GM/DL (6.4-8.2)
[2020-03-09 10:13] LABS: BILIRUBIN,TOTAL 0.7 MG/DL (0.2-1.0)
--- NOTE | 2020-03-09 10:51 | IPNPDOC ---
Date Seen The patient was seen on 03/09/20. Progress Note Interval history: There have been no adverse events reported overnight. Patient states that he is feeling better. He denies any lightheadedness or chest pain. He denies any further episodes of bleeding. He continues to note dark stools although states that he has only had a few bowel movements. He denies any abdominal pain. He did receive one unit of PRBCs. His Hgb today is 7.6gm/dl and within acceptable range Exam: Vitals: reviewed General: Awake, alert, and oriented. Does not appear in acute distress. Lying in bed comfortably HEENT: Atraumatic, normocephalic. eyes are nonicteric. Trachea is midline. No conjunctival pallor. Mucous membranes are pink and moist Cardiovascular: Normal S1, S2. Regular rate and rhythm. No clicks, rubs, or murmurs Pulmonary: Clear vesicular breath sounds bilaterally with good respiratory effort. No wheezes, rhonchi or rales. Symmetric chest expansion Abdomen: Soft, non-distended, no surgical scars, non-tender, no palpable masses. Normoactive bowel sounds Extremities: Trace pitting edema in bilateral lower extremities. Full and equal pulses in bilateral upper and lower extremities Labs: reviewed. Imaging: reviewed. Endoscopy - For detailed procedure report, please review the operative note. Impression: -- Acute GI bleeding and anemia post GI bleeding s/p EGD on 03/06/2020 -- noted large esophageal varices, with signs of bleeding, s/p banding, large blood clot in gastric fundus limiting exam of the fundus. The slight drop in hemoglobin likely from dilutional effect and sloughing of bands. - Alcoholic liver cirrhosis ( CTP A, MELD- Na 9) with dilated portal vein with ascites in past but recent Ultrasound abdomen in January 2020 showed resolution of ascites, EGD in February 2019 showed large esophageal varices, No prior hepatic encephalopathy. Quit alcohol since Oct 2018. Recommendations: - Patient educated about the test results, possible differential diagnoses and All questions answered. -Will start 20mg IV lasix daily -Advance diet to full liquids. If tolerated may continue to advance - Will order Miralax to clear old blood - Avoid ibuprofen, naproxen, or other non-steroidal anti-inflammatory drugs. - Continue present medications. - Switch IV PPI to oral PPI - Continue IV Octreotide drip of 50mcg/hr for 3- 5 days - Antibiotics (ceftriaxone - 1 gm once daily if not contra-indicated) for total of 7 days. ( if being discharged can switch to Oral ciprofloxacin). - Monitor Hemoglobin/Hematocrit every 8 hours: transfuse as needed to maintain Hb around 7-8. ( Do Not transfuse over that level). - Give antiemetics IV PRN - At the time of discharge, please re-start on non selective betablocker ( prefer propranolol)-- dose titrated based on the BP and heart rate ( goal 55 - 60 / min). - Upon discharge please give outpatient appointment in GI clinic in 2-3 weeks. ( please call [phone]). -If H&H remain stable overnight patient may be discharged from GI standpoint Plan of care discussed with patient and primary team. Patient verbalized understanding and agreed with the plan. VS, I&O, 24H, Fishbone Vital Signs/I&O Vital Signs Date Time Temp Pulse Resp B/P (MAP) Pulse Ox O2 Delivery O2 Flow Rate FiO2 03/09/20 08:44 74 130/70 03/09/20 07:21 98.4 18 96 Room Air 03/07/20 08:00 1.0 I&O- Last 24 Hours up to 6 AM 03/09/20 06:00 Intake Total 2040 ml Output Total 0 ml Balance 2040 ml Laboratory Data 24H LABS Laboratory Tests 2 03/08/20 11:40: Immature Granulocyte % (Auto) 0.6, Neutrophils (%) (Auto) 68.3H, Lymphocytes (%) (Auto) 19.0L, Monocytes (%) (Auto) 10.0H, Eosinophils (%) (Auto) 1.8, Basophils (%) (Auto) 0.3, Neutrophils # (Auto) 4.9, Lymphocytes # (Auto) 1.4L, Monocytes # (Auto) 0.7, Eosinophils # (Auto) 0.1, Basophils # (Auto) 0.0, Nucleated Red Blood Cells % (auto) 0.0, Glomerular Filtration Rate > 60.0 03/08/20 11:41: Bedside Glucose (Misc Panel) 170H 03/08/20 16:36: Bedside Glucose (Misc Panel) 139H 03/08/20 19:50: Bedside Glucose (Misc Panel) 151H 03/09/20 07:58: Bedside Glucose (Misc Panel) 142H 03/09/20 08:39: Nucleated Red Blood Cells % (auto) 0.0, Immature Platelet Fraction 5.9, Anion Gap 4L, Glomerular Filtration Rate > 60.0, Calcium Level 7.8L, Total Bilirubin 0.7#, Aspartate Amino Transf (AST/SGOT) 20, Alanine Aminotransferase (ALT/SGPT) 32, Alkaline Phosphatase 68, Total Protein 5.6L, Albumin 3.0L, Albumin/Globulin Ratio 1.2 CBC/BMP Laboratory Tests 03/08/20 11:40 03/08/20 19:11 03/09/20 02:07 03/09/20 08:39 MARIELLE RODRIGUEZ DO March 09, 2020 10:51
[2020-03-09] MEDS ORDERED: LASI20TA3 PO (14:04)
[2020-03-09] MEDS ORDERED: CIPR-249 PO ×2 (14:05→14:08)
== END 2020-03-09 16:31 | disposition home or self-care (01) | DRG 432 ==
LOC: M ED 21:05 → M ED INP 23:00 → ENRESERV 03-06 00:26 → M PCU 03-06 01:58 → M ICU 03-06 08:01 → M PCU 03-06 14:42 → M MS5PR 03-07 17:40
PROVIDERS: ADMIT Internal Medicine; ATTEND Internal Medicine
PROC: 30233N1 Transfusion of Nonautologous Red Blood Cells into Peripheral Vein, Percutaneous Approach (ICD-10-PCS; 2020-03-05)
PROC: 0W3P8ZZ Control Bleeding in Gastrointestinal Tract, Via Natural or Artificial Opening Endoscopic (ICD-10-PCS; principal; 2020-03-06 06:00)
DX: K70.30 Alcoholic cirrhosis of liver without ascites (principal); I85.11 Secondary esophageal varices with bleeding; D62 Acute posthemorrhagic anemia; K92.2 Gastrointestinal hemorrhage, unspecified; K21.9 Gastro-esophageal reflux disease without esophagitis; J45.909 Unspecified asthma, uncomplicated; E11.9 Type 2 diabetes mellitus without complications; I10 Essential (primary) hypertension; Z79.82 Long term (current) use of aspirin; Z79.899 Other long term (current) drug therapy; Z91.018 Allergy to other foods

== ENCOUNTER → 2020-03-16 | Outpatient (REF) | payer OTHER, MEDICARE ==
[~2020-03-16] MED LIST changes: +CIPR-249 PO; +LASI20TA3 PO; +METH1TAB40 PO; +NAPR1TAB83 PO; +OMEP-218 PO; +PROP10TA56 PO; +PROP20TA72 PO
[2020-03-16 18:27] LABS: HEMATOCRIT 27.4 % (42.0-52.0); HEMOGLOBIN 8.6 g/dl (13.5-17.5); MEAN CORPUSCULAR HEMOGLOBIN 27.9 pg (27.0-33.0); MEAN CORPUSCULAR HGB CONC 31.4 g/dl (32.0-36.5); PLATELET COUNT, AUTOMATED 103 10^3/uL (150-450); RED BLOOD COUNT 3.08 10^6/uL (4.30-6.10); WHITE BLOOD COUNT 7.1 10^3/uL (4.0-10.0)
[2020-03-16 20:03] LABS: HEMOGLOBIN A1c 5.7 %
== END ==
LOC: M PLALAB 14:28
PROVIDERS: ATTEND Family Medicine
DX: D50.0 Iron deficiency anemia secondary to blood loss (chronic) (principal); E11.9 Type 2 diabetes mellitus without complications

== ENCOUNTER → 2020-04-14 | Outpatient (CLI) | payer OTHER, MEDICARE ==
[2020-04-14 11:57] LABS: BASO % 0.2 % (0.0-1.0); EOS # 0.1 10^3/uL (0.0-0.5); EOS % 2.4 % (0.0-3.0); HEMATOCRIT 27.1 % (42.0-52.0); LYMPH # 0.9 10^3/uL (1.5-5.0); LYMPH % 19.3 % (24.0-44.0); MEAN CORPUSCULAR HEMOGLOBIN 24.8 pg (27.0-33.0); MEAN CORPUSCULAR HGB CONC 29.5 g/dl (32.0-36.5); MEAN CORPUSCULAR VOLUME 83.9 fl (80.0-96.0); MONO # 0.5 10^3/uL (0.0-0.8); MONO % 10.1 % (0.0-5.0); NEUTROPHILS # 3.1 10^3/uL (1.5-8.5); NEUTROPHILS % 67.8 % (36.0-66.0); RED BLOOD COUNT 3.23 10^6/uL (4.30-6.10); WHITE BLOOD COUNT 4.6 10^3/uL (4.0-10.0)
[2020-04-14 12:00] LABS: PLATELET COUNT, AUTOMATED 81 10^3/uL (150-450)
[2020-04-14 12:10] LABS: ALBUMIN 3.6 GM/DL (3.2-5.2); ALT/SGPT 26 U/L (12-78); BILIRUBIN,DIRECT 0.1 MG/DL (0.0-0.2); BILIRUBIN,TOTAL 0.5 MG/DL (0.2-1.0); BLOOD UREA NITROGEN 13 MG/DL (7-18); CREATININE FOR GFR 0.89 MG/DL (0.70-1.30); FERRITIN 5 NG/ML (26-388); GLOMERULAR FILTRATION RATE > 60.0 (>49); IRON (FE) 22 UG/DL (65-175); PERCENT SATURATION 5.9 % (19.7-50.0); TOTAL IRON BINDING CAPACITY 371 UG/DL (250-450); TOTAL PROTEIN 7.3 GM/DL (6.4-8.2)
== END ==
LOC: M PLALAB 08:15
PROVIDERS: ATTEND Internal Medicine Gastroenterology
DX: K70.30 Alcoholic cirrhosis of liver without ascites (principal)

== ENCOUNTER → 2020-06-05 | Outpatient (REF) | payer OTHER, MEDICARE ==
[~2020-06-05] MED LIST changes: -ASPI81TA85 PO; +ASPI81TA86 PO; +PANT40TA29 PO; -PANT40TA3 PO
[2020-07-22 21:17] LABS: BASO % 0.5 % (0.0-1.0); EOS # 0.1 10^3/uL (0.0-0.5); EOS % 2.7 % (0.0-3.0); HEMATOCRIT 34.5 % (42.0-52.0); HEMOGLOBIN 10.8 g/dl (13.5-17.5); LYMPH # 0.6 10^3/uL (1.5-5.0); LYMPH % 16.4 % (24.0-44.0); MEAN CORPUSCULAR HEMOGLOBIN 27.5 pg (27.0-33.0); MEAN CORPUSCULAR HGB CONC 31.3 g/dl (32.0-36.5); MEAN CORPUSCULAR VOLUME 87.8 fl (80.0-96.0); MONO # 0.4 10^3/uL (0.0-0.8); MONO % 9.4 % (0.0-5.0); NEUTROPHILS # 2.6 10^3/uL (1.5-8.5); NEUTROPHILS % 70.7 % (36.0-66.0); RED BLOOD COUNT 3.93 10^6/uL (4.30-6.10); WHITE BLOOD COUNT 3.7 10^3/uL (4.0-10.0)
[2020-07-22 21:18] LABS: PLATELET COUNT, AUTOMATED 69 10^3/uL (150-450)
[2020-07-31 23:53] LABS: BLOOD UREA NITROGEN 15 MG/DL (7-18); CALCIUM LEVEL 8.8 MG/DL (8.8-10.2); CARBON DIOXIDE LEVEL 29 MEQ/L (21-32); CHLORIDE LEVEL 104 MEQ/L (98-107); CREATININE FOR GFR 0.84 MG/DL (0.70-1.30); FERRITIN 14 NG/ML (26-388); GLOMERULAR FILTRATION RATE > 60.0 (>49); GLUCOSE, FASTING 139 MG/DL (70-100); IRON (FE) 58 UG/DL (65-175); PERCENT SATURATION 16.9 % (19.7-50.0); POTASSIUM SERUM 4.3 MEQ/L (3.5-5.1); SODIUM LEVEL 136 MEQ/L (136-145); TOTAL IRON BINDING CAPACITY 344 UG/DL (250-450)
== END ==
LOC: M PLALAB 14:15
PROVIDERS: ATTEND Internal Medicine Gastroenterology
DX: K70.30 Alcoholic cirrhosis of liver without ascites (principal); I85.01 Esophageal varices with bleeding

== ENCOUNTER → 2020-06-07 | Outpatient (REF) | payer OTHER, MEDICARE ==
[2020-06-07 14:39] LABS: HEMATOCRIT 35.5 % (42.0-52.0); HEMOGLOBIN 10.8 g/dl (13.5-17.5); MEAN CORPUSCULAR HEMOGLOBIN 26.9 pg (27.0-33.0); MEAN CORPUSCULAR HGB CONC 30.4 g/dl (32.0-36.5); MEAN CORPUSCULAR VOLUME 88.5 fl (80.0-96.0); RED BLOOD COUNT 4.01 10^6/uL (4.30-6.10); WHITE BLOOD COUNT 4.7 10^3/uL (4.0-10.0)
[2020-06-07 14:45] LABS: PLATELET COUNT, AUTOMATED 72 10^3/uL (150-450)
[2020-06-07 14:49] LABS: INR 1.01; PROTHROMBIN TIME 13.5 SECONDS (11.8-14.0)
[2020-06-07 15:05] LABS: ALT/SGPT 36 U/L (12-78); BILIRUBIN,TOTAL 0.8 MG/DL (0.2-1.0); BLOOD UREA NITROGEN 12 MG/DL (7-18); CARBON DIOXIDE LEVEL 29 MEQ/L (21-32); CHLORIDE LEVEL 101 MEQ/L (98-107); GLOMERULAR FILTRATION RATE > 60.0 (>49); GLUCOSE, FASTING 117 MG/DL (70-100); POTASSIUM SERUM 4.2 MEQ/L (3.5-5.1); SODIUM LEVEL 134 MEQ/L (136-145)
[2020-06-08 16:22] LABS: ALPHA 1 ANTITRYPSIN 146 mg/dL (101-187); ANTI-MITOCHONDRIAL ANTIBODY <20.0 Units (0.0-20.0); ANTINUCLEAR ANTIBODIES DIRECT Negative (Negative); CERULOPLASMIN 31.1 mg/dL (16.0-31.0)
== END ==
LOC: M SMT 12:10
PROVIDERS: ATTEND Nurse Practitioner Family
DX: K72.90 Hepatic failure, unspecified without coma (principal)

== ENCOUNTER → 2020-07-28 | Outpatient (CLI) | payer OTHER, MEDICARE ==
[2020-07-28 08:47] LABS: BASO % 0.5 % (0.0-1.0); EOS # 0.1 10^3/uL (0.0-0.5); EOS % 2.1 % (0.0-3.0); HEMATOCRIT 41.4 % (42.0-52.0); HEMOGLOBIN 13.4 g/dl (13.5-17.5); LYMPH # 0.7 10^3/uL (1.5-5.0); LYMPH % 16.5 % (24.0-44.0); MEAN CORPUSCULAR HEMOGLOBIN 30.1 pg (27.0-33.0); MEAN CORPUSCULAR HGB CONC 32.4 g/dl (32.0-36.5); MONO # 0.4 10^3/uL (0.0-0.8); MONO % 9.5 % (0.0-5.0); NEUTROPHILS % 71.2 % (36.0-66.0); RED BLOOD COUNT 4.45 10^6/uL (4.30-6.10); WHITE BLOOD COUNT 4.2 10^3/uL (4.0-10.0)
[2020-07-28 08:51] LABS: PLATELET COUNT, AUTOMATED 56 10^3/uL (150-450)
[2020-07-28 09:10] LABS: PERCENT SATURATION 34.1 % (19.7-50.0)
--- NOTE | 2020-08-02 07:48 | REP ---
COMPLETE ABDOMINAL SONOGRAPHY WITH PORTAL VENOUS DOPPLER ASSESSMENT HISTORY: Alcoholic cirrhosis of the liver without ascites. Esophageal varices with bleeding. MORPHOLOGIC FINDINGS: Scanning through the right upper quadrant of the abdomen demonstrates a normal size thin walled gallbladder without evidence of stone or polyp. Common bile duct is normal measuring 0.4 cm in greatest diameter. Coarse liver texture is again seen. The main portal vein is dilated, 16.2 mm in diameter. Pancreas is largely obscured by abdominal gas. No pancreatic abnormality is seen. The spleen is enlarged measuring 17.1 x 16.5 x 7.1 cm in overall dimension. There is a 2.2 cm accessory splenule. There are two small hyperechoic nodules in the spleen parenchyma, the largest of which measures 1.1 cm in diameter. These are compatible with small splenic hemangiomas. There is no evidence of ascites. The abdominal aorta is not well visualized, but does not appear dilated. Renal cortical echogenicity pattern is normal and contours are smooth. No hydronephrosis is seen. Right renal dimensions are 11.0 x 6.0 x 5.5 cm. Left renal measurements are 11.2 x 5.0 x 4.1 cm. IMPRESSION: Moderate splenomegaly. Coarse liver texture. Dilated main portal vein. VISCERAL VENOUS DOPPLER FINDINGS: The main portal vein is seen to be dilated, 16.2 mm. No ascites. Normal waveforms and directions of flow in the splenic vein, mesenteric vein, and portal veins. Hepatic arterial peak systolic flow velocity is 75 cm/s. Splenic vein venous velocity is 25.7 cm/s. Main portal vein direction is normal and flow velocity 20.2 cm/s. Intrahepatic portal vein waveforms and velocities are normal. IMPRESSION: Dilated main portal vein. Normal waveforms and flow directions. [facility]
== END ==
LOC: M RAD 07:33
PROVIDERS: ATTEND Internal Medicine Gastroenterology
DX: K70.30 Alcoholic cirrhosis of liver without ascites (principal); I85.01 Esophageal varices with bleeding; R16.1 Splenomegaly, not elsewhere classified; I87.8 Other specified disorders of veins

== ENCOUNTER → 2020-08-04 | Outpatient (CLI) | payer OTHER, MEDICARE ==
[2020-08-04 10:47] LABS: CREATININE, URINE 67.2 MG/DL; MALB URINE SIEMENS < 5.0 MG/L; MAU/CREAT RATIO 7.4 MCG/MG (0.0-30.0)
[2020-08-04 12:20] LABS: HEMOGLOBIN A1c 6.6 %
== END ==
LOC: M PLALAB 08:51
PROVIDERS: ATTEND Nurse Practitioner Adult Health
DX: E11.9 Type 2 diabetes mellitus without complications (principal)

== ENCOUNTER → 2020-09-20 | Outpatient (CLI) | payer OTHER, MEDICARE ==
[~2020-09-20] MED LIST changes: +FOLI1TAB11 PO; +MULTCAP PO
== END ==
LOC: M LABSMTC 11:01
PROVIDERS: ATTEND Anesthesiology
DX: Z01.812 Encounter for preprocedural laboratory examination (principal); Z20.828 Contact with and (suspected) exposure to other viral communicable diseases

== ENCOUNTER 2020-09-25 15:25 | Day surgery (SDC) | payer OTHER, MEDICARE ==
[~2020-09-25] VITALS: Ht 175.3 cm; Wt 97.5 kg
[~2020-09-25 15:25] MED LIST changes: +NS 1,000 ML IV ONE
[2020-09-25] MEDS ORDERED: LIDOCAINE 2% 100MG/5ML SDV (FOR ANES.) As Ordered ONE (16:17)
[2020-09-25] MEDS ORDERED: propofoL 200 MG/20 ML VIAL As Ordered ONE (16:17)
[2020-09-25] MEDS ORDERED: ONDANSETRON 4MG/2ML VIAL As Ordered ONE (17:17)
[2020-09-25 17:35] VITALS: BP 152/77
--- NOTE | 2020-09-25 17:36 | ROOR ---
Patient Name: Oscar Vegas Procedure Date: 09/25/2020 4:50 PM Date of : 1955 Age: 65 Room: [facility] Gender: Male Note Status: Finalized Procedure: Upper GI endoscopy Indications: For therapy of esophageal varices Providers: Bernardo Shaw MD Referring MD: Shantel Haddad NP Requesting Provider: Medicines: Monitored Anesthesia Care Complications: No immediate complications. Procedure: Pre-Anesthesia Assessment: - Prior to the procedure, a History and Physical was performed, and patient medications and allergies were reviewed. The patient is competent. The risks and benefits of the procedure and the sedation options and risks were discussed with the patient. All questions were answered and informed consent was obtained. Patient identification and proposed procedure were verified by the physician, the nurse and the anesthesiologist in the procedure room. Mental Status Examination: alert and oriented. Airway Examination: normal oropharyngeal airway and neck mobility. Respiratory Examination: clear to auscultation. CV Examination: normal. Prophylactic Antibiotics: The patient does not require prophylactic antibiotics. Prior Anticoagulants: The patient has taken no previous anticoagulant or antiplatelet agents. ASA Grade Assessment: II - A patient with mild systemic disease. After reviewing the risks and benefits, the patient was deemed in satisfactory condition to undergo the procedure. The anesthesia plan was to use monitored anesthesia care (MAC). Immediately prior to administration of medications, the patient was re-assessed for adequacy to receive sedatives. The heart rate, respiratory rate, oxygen saturations, blood pressure, adequacy of pulmonary ventilation, and response to care were monitored throughout the procedure. The physical status of the patient was re-assessed after the procedure. The Endoscope was introduced through the mouth, and advanced to the second part of duodenum. The upper GI endoscopy was accomplished without difficulty. The patient tolerated the procedure well. Findings: Three columns of non-bleeding grade III varices were found in the lower third of the esophagus,. No stigmata of recent bleeding were evident and red silvano signs were present. Evidence of partial eradication was visible. Five bands were successfully placed with complete eradication, resulting in deflation of varices. There was no bleeding at the end of the procedure. Moderate portal hypertensive gastropathy was found in the gastric fundus, in the gastric body and in the gastric antrum. The duodenal bulb and second portion of the duodenum were normal. Impression: - Non-bleeding grade III esophageal varices. Completely eradicated. Banded. - Portal hypertensive gastropathy. - Normal duodenal bulb and second portion of the duodenum. - No specimens collected. Recommendation: - Patient has a contact number available for emergencies. The signs and symptoms of potential delayed complications were discussed with the patient. Return to normal activities tomorrow. Written discharge instructions were provided to the patient. - Clear liquid diet for 1 day, then advance as tolerated to high fiber diet and low sodium diet. - Continue present medications. - No ibuprofen, naproxen, or other non-steroidal anti-inflammatory drugs. - Use Protonix (pantoprazole) 40 mg PO twice daily - to be taken in morning (1/2 hour before breakfast) and at bedtime ( atleast 3 hours after last meal) for 6 weeks. - Repeat upper endoscopy in 6 weeks to evaluate the response to therapy. - Return to GI clinic in [facility] (address [address], [address], [place], [facility]) in 4 -- 6 weeks. Please call GI clinic @ [phone] for apppointment date and time. - Return to primary care physician. Procedure Code(s): --- Professional --- 99296, Esophagogastroduodenoscopy, flexible, transoral; with band ligation of esophageal/gastric varices Diagnosis Code(s): --- Professional --- I85.00, Esophageal varices without bleeding K76.6, Portal hypertension K31.89, Other diseases of stomach and duodenum CPT copyright 2019 [employer]. All rights reserved. The codes documented in this report are preliminary and upon steam trap worker review may be revised to meet current compliance requirements. Bernardo Shaw MD Bernardo Shaw MD 09/25/2020 5:35:04 PM Electronically signed by Bernardo Shaw MD Number of Addenda: 0 Note Initiated On: 09/25/2020 4:50 PM Estimated Blood Loss: Estimated blood loss was minimal.
== END 2020-09-25 18:00 | disposition home or self-care (01) ==
LOC: M OPP 15:25
PROVIDERS: ATTEND Internal Medicine Gastroenterology
DX: I85.00 Esophageal varices without bleeding (principal); K76.6 Portal hypertension; K31.89 Other diseases of stomach and duodenum; E11.9 Type 2 diabetes mellitus without complications; Z79.82 Long term (current) use of aspirin; Z79.84 Long term (current) use of oral hypoglycemic drugs; Z79.899 Other long term (current) drug therapy; Z91.018 Allergy to other foods; Z88.8 Allergy status to other drugs, medicaments and biological substances
CPT/HCPCS: 43244; J2405

== ENCOUNTER → 2020-12-14 | Outpatient (REF) | payer OTHER, MEDICARE ==
[~2020-12-14] MED LIST changes: +METH-1164 PO; -METH1TAB40 PO; -NS 1,000 ML IV ONE
[2020-12-14 11:24] LABS: HEMOGLOBIN A1c 7.5 %
[2020-12-14 11:41] LABS: ALBUMIN 3.7 GM/DL (3.2-5.2); ALT/SGPT 40 U/L (12-78); BILIRUBIN,TOTAL 1.1 MG/DL (0.2-1.0); BLOOD UREA NITROGEN 10 MG/DL (7-18); CALCIUM LEVEL 9.2 MG/DL (8.8-10.2); CARBON DIOXIDE LEVEL 29 MEQ/L (21-32); CHLORIDE LEVEL 100 MEQ/L (98-107); CHOLESTEROL LEVEL 253 MG/DL (<200); GLOMERULAR FILTRATION RATE > 60.0 (>49); GLUCOSE, FASTING 126 MG/DL (70-100); HDL CHOLESTEROL 41 MG/DL (>40); LDL CHOLESTEROL 182 MG/DL (<100); NON-HDL-C 212 MG/DL; POTASSIUM SERUM 4.6 MEQ/L (3.5-5.1); SODIUM LEVEL 134 MEQ/L (136-145); TOTAL PROTEIN 7.4 GM/DL (6.4-8.2); TRIGLYCERIDES LEVEL 151 MG/DL (<150)
[2020-12-14 11:46] LABS: CREATININE, URINE 76.3 MG/DL; MALB URINE SIEMENS < 5.0 MG/L; MAU/CREAT RATIO 6.5 MCG/MG (0.0-30.0)
== END ==
LOC: M SFHCPLAZ 08:06
PROVIDERS: ATTEND Nurse Practitioner Adult Health
DX: Z13.220 Encounter for screening for lipoid disorders (principal); E11.9 Type 2 diabetes mellitus without complications

== ENCOUNTER → 2021-01-11 | Outpatient (CLI) | payer OTHER, MEDICARE ==
[~2021-01-11] MED LIST changes: +ALBU8.5H INH; +PANT20TA6 PO
== END ==
LOC: M LABSMTC 11:26
PROVIDERS: ATTEND Anesthesiology
DX: Z01.812 Encounter for preprocedural laboratory examination (principal); Z20.822 Contact with and (suspected) exposure to COVID-19

== ENCOUNTER 2021-01-16 06:48 | Day surgery (SDC) | payer OTHER, MEDICARE ==
[~2021-01-16] VITALS: Ht 175.3 cm; Wt 97.5 kg
[~2021-01-16 06:48] MED LIST changes: +NS 1,000 ML IV ONE; +SIMETHICONE 40MG/0.6ML DROPS 30ML As Ordered ONE
[2021-01-16] MEDS ORDERED: propofoL 200 MG/20 ML VIAL As Ordered ONE ×2 (07:12→07:15)
[2021-01-16] MEDS ORDERED: LIDOCAINE 2% 100MG/5ML SDV (FOR ANES.) As Ordered ONE (07:12)
[2021-01-16] MEDS ORDERED: ONDANSETRON 4MG/2ML VIAL As Ordered ONE (07:59)
--- NOTE | 2021-01-16 08:19 | ROOR ---
Patient Name: Oscar Vegas Procedure Date: 01/16/2021 7:32 AM Date of : 1955 Age: 66 Room: [facility] Gender: Male Note Status: Finalized Procedure: Upper GI endoscopy Indications: For therapy of esophageal varices Providers: Bernardo Shaw MD Referring MD: Shantel Haddad NP Requesting Provider: Medicines: Monitored Anesthesia Care Complications: No immediate complications. Procedure: Pre-Anesthesia Assessment: - Prior to the procedure, a History and Physical was performed, and patient medications and allergies were reviewed. The patient is competent. The risks and benefits of the procedure and the sedation options and risks were discussed with the patient. All questions were answered and informed consent was obtained. Patient identification and proposed procedure were verified by the physician, the nurse and the anesthesiologist in the procedure room. Mental Status Examination: alert and oriented. Airway Examination: normal oropharyngeal airway and neck mobility. Respiratory Examination: clear to auscultation. CV Examination: normal. Prophylactic Antibiotics: The patient does not require prophylactic antibiotics. Prior Anticoagulants: The patient has taken no previous anticoagulant or antiplatelet agents. ASA Grade Assessment: II - A patient with mild systemic disease. After reviewing the risks and benefits, the patient was deemed in satisfactory condition to undergo the procedure. The anesthesia plan was to use monitored anesthesia care (MAC). Immediately prior to administration of medications, the patient was re-assessed for adequacy to receive sedatives. The heart rate, respiratory rate, oxygen saturations, blood pressure, adequacy of pulmonary ventilation, and response to care were monitored throughout the procedure. The physical status of the patient was re-assessed after the procedure. The Endoscope was introduced through the mouth, and advanced to the second part of duodenum. The upper GI endoscopy was accomplished without difficulty. The patient tolerated the procedure well. Findings: Four columns of non-bleeding grade III varices were found in the lower third of the esophagus,. No stigmata of recent bleeding were evident and red silvano signs were present. Scarring from prior treatment was visible. Evidence of partial eradication was visible. Five bands were successfully placed with complete eradication, resulting in deflation of varices. There was no bleeding during and at the end of the procedure. Severe portal hypertensive gastropathy was found in the entire examined stomach. Multiple dispersed, small non-bleeding erosions were found in the gastric antrum. There were no stigmata of recent bleeding. Biopsies were taken with a cold forceps for Helicobacter pylori testing. Verification of patient identification for the specimen was done by the physician and nurse using the patient's name, date and medical record number. Estimated blood loss was minimal. The duodenal bulb and second portion of the duodenum were normal. Impression: - Non-bleeding grade III esophageal varices. Completely eradicated. Banded. - Portal hypertensive gastropathy. - Non-bleeding erosive gastropathy. Biopsied. - Normal duodenal bulb and second portion of the duodenum. Recommendation: - Patient has a contact number available for emergencies. The signs and symptoms of potential delayed complications were discussed with the patient. Return to normal activities tomorrow. Written discharge instructions were provided to the patient. - Clear liquid diet for 1 day, then advance as tolerated to high fiber diet and low sodium diet. - Continue present medications. - Use Protonix (pantoprazole) 40 mg PO twice daily - to be taken in morning (1/2 hour before breakfast) and at bedtime ( atleast 3 hours after last meal) for 8 weeks. - Use sucralfate suspension 1 gram PO QID for 4 weeks. - No ibuprofen, naproxen, or other non-steroidal anti-inflammatory drugs. - Await pathology results. - Repeat upper endoscopy in 6 months depending on the symptoms and clinical response. - Return to GI clinic in 2 months. - Return to primary care physician. Procedure Code(s): --- Professional --- 78798, Esophagogastroduodenoscopy, flexible, transoral; with band ligation of esophageal/gastric varices 30853, Esophagogastroduodenoscopy, flexible, transoral; with biopsy, single or multiple Diagnosis Code(s): --- Professional --- I85.00, Esophageal varices without bleeding K76.6, Portal hypertension K31.89, Other diseases of stomach and duodenum CPT copyright 2019 [employer]. All rights reserved. The codes documented in this report are preliminary and upon docket clerk review may be revised to meet current compliance requirements. Bernardo Shaw MD Bernardo Shaw MD 01/16/2021 8:19:05 AM Electronically signed by Bernardo Shaw MD Number of Addenda: 0 Note Initiated On: 01/16/2021 7:32 AM Estimated Blood Loss: Estimated blood loss was minimal.
[2021-01-16 08:26] VITALS: BP 163/84
== END 2021-01-16 08:56 | disposition home or self-care (01) ==
LOC: M OPP 06:48
PROVIDERS: ATTEND Internal Medicine Gastroenterology
DX: I85.00 Esophageal varices without bleeding (principal); K76.6 Portal hypertension; K31.89 Other diseases of stomach and duodenum; Z79.82 Long term (current) use of aspirin; Z79.84 Long term (current) use of oral hypoglycemic drugs; Z79.899 Other long term (current) drug therapy; Z91.018 Allergy to other foods; Z88.8 Allergy status to other drugs, medicaments and biological substances
CPT/HCPCS: 43239; 43244; 88305; J2405

== ENCOUNTER → 2021-01-26 | Outpatient (CLI) | payer OTHER, MEDICARE ==
[~2021-01-26] MED LIST changes: -NS 1,000 ML IV ONE; -SIMETHICONE 40MG/0.6ML DROPS 30ML As Ordered ONE
[2021-01-26 08:11] LABS: BASO % 0.6 % (0.0-1.0); EOS # 0.1 10^3/uL (0.0-0.5); EOS % 1.9 % (0.0-3.0); HEMATOCRIT 38.9 % (42.0-52.0); HEMOGLOBIN 13.4 g/dl (13.5-17.5); LYMPH # 0.7 10^3/uL (1.5-5.0); LYMPH % 14.1 % (24.0-44.0); MEAN CORPUSCULAR HEMOGLOBIN 32.9 pg (27.0-33.0); MEAN CORPUSCULAR HGB CONC 34.4 g/dl (32.0-36.5); MEAN CORPUSCULAR VOLUME 95.6 fl (80.0-96.0); MONO # 0.6 10^3/uL (0.0-0.8); NEUTROPHILS # 3.8 10^3/uL (1.5-8.5); NEUTROPHILS % 72.2 % (36.0-66.0); RED BLOOD COUNT 4.07 10^6/uL (4.30-6.10); WHITE BLOOD COUNT 5.3 10^3/uL (4.0-10.0)
[2021-01-26 08:16] LABS: PLATELET COUNT, AUTOMATED 68 10^3/uL (150-450)
[2021-01-26 08:34] LABS: ALBUMIN 3.7 GM/DL (3.2-5.2); BILIRUBIN,DIRECT 0.2 MG/DL (0.0-0.2); BILIRUBIN,TOTAL 0.9 MG/DL (0.2-1.0); PERCENT SATURATION 26.2 % (19.7-50.0); TOTAL PROTEIN 7.3 GM/DL (6.4-8.2)
--- NOTE | 2021-01-26 09:27 | REP ---
INDICATION: CIRRHOSIS W/ ESOPHAGEAL VARICES- LABS FIRST COMPARISON: 07/28/2020, 01/01/2019 TECHNIQUE: Real time kwon scale ultrasound examination using curved array transducer with Doppler evaluation of the hepatic vasculature. FINDINGS: The liver demonstrates coarsened echotexture without focal hepatic lesion identified. The main portal vein is again dilated to 18.6 mm diameter (increased from prior examination) and there appears to be a focal area of intraluminal material which warrants further investigation. The pancreas is incompletely evaluated due to interposed bowel gas. Gallbladder demonstrates chronic wall thickening to 4 mm without gallstones, or pericholecystic fluid. No biliary ductal dilatation is appreciated and the common bile duct measures 4.2 mm diameter. Right kidney is normal in reniform shape without hydronephrosis and measures 10.8 x 5.4 x 5.1 cm. No ascites in the visualized right upper quadrant. Limited Doppler interrogation demonstrates normal flow direction, wave pattern and velocity to the main portal vein at 22.2 cm/sec IMPRESSION: 1. Main portal vein appears mildly increased in diameter as compared with prior examinations and there appears to be soft tissue within the proximal/mid main portal vein warranting further investigation. Consider pre and postcontrast CT of the abdomen. <Electronically signed by Sherif Abel > 01/26/21 0932
== END ==
LOC: M RAD 07:25
PROVIDERS: ATTEND Internal Medicine Gastroenterology
DX: K70.30 Alcoholic cirrhosis of liver without ascites (principal); I85.01 Esophageal varices with bleeding

== ENCOUNTER → 2021-02-16 | Outpatient (CLI) | payer OTHER, MEDICARE ==
[2021-02-16 11:01] LABS: BLOOD UREA NITROGEN 11 MG/DL (7-18); GLOMERULAR FILTRATION RATE > 60.0 (>49)
== END ==
LOC: M LAB 09:17
PROVIDERS: ATTEND Internal Medicine Gastroenterology
DX: K70.30 Alcoholic cirrhosis of liver without ascites (principal)

== ENCOUNTER → 2021-02-22 | Outpatient (CLI) | payer OTHER, MEDICARE ==
[~2021-02-22] MED LIST changes: +ISOVUE-370 76% 100ML VIAL As Ordered ONE
--- NOTE | 2021-02-22 09:36 | REP ---
INDICATION: ABNORMAL FINDINGS ON DX IMAGING OF PRT DIGESTIVE TRACT COMPARISON: None TECHNIQUE: Axial precontrast, arterial phase, and venous phase images of the abdomen using 100 cc Isovue 370 intravenous contrast material with coronal and sagittal reformations. This CT examination was performed using the following dose reduction techniques: Automated exposure control, adjustment of mA and/or kv according to the patient's size, and use of iterative reconstruction technique. FINDINGS: There is evidence for cirrhosis with portal hypertension including splenomegaly, portosystemic shunting and varices noted throughout the abdomen including esophageal varices. No focal hepatic lesion identified. The mesentery demonstrates edematous stranding and scattered lymph nodes again consistent with cirrhosis. There is partial thrombosis of the splenic and superior mesenteric veins with extension of partial thrombus into the portal vein. Visualized portions of the enteric system are grossly unremarkable and without obvious acute process. Colonic diverticula noted without acute diverticulitis. No bowel obstruction. No free air. No discernible ascites in the abdomen. Abdominal aorta and arterial vessels are normal. Vena cava and renal veins are normal. Musculoskeletal structures are intact and without acute osseous abnormality. Lung bases demonstrate scattered fibroatelectatic changes and right hilar adenopathy. IMPRESSION: 1. Cirrhosis and portal venous hypertension as noted above. 2. Partial thrombosis of the splenic, mesenteric and portal vein noted. <Electronically signed by Sherif Abel > 02/22/21 4822
== END ==
LOC: M RAD 08:53
PROVIDERS: ATTEND Internal Medicine Gastroenterology
DX: K74.60 Unspecified cirrhosis of liver (principal); K76.6 Portal hypertension; I82.890 Acute embolism and thrombosis of other specified veins
CPT/HCPCS: 74175; Q9967

== ENCOUNTER → 2021-05-03 | Outpatient (CLI) | payer OTHER, MEDICARE ==
[~2021-05-03] MED LIST changes: -ISOVUE-370 76% 100ML VIAL As Ordered ONE
[2021-05-03 11:13] LABS: HEMATOCRIT 37.1 % (42.0-52.0); HEMOGLOBIN 12.3 g/dl (13.5-17.5); MEAN CORPUSCULAR HEMOGLOBIN 32.2 pg (27.0-33.0); MEAN CORPUSCULAR HGB CONC 33.2 g/dl (32.0-36.5); MEAN CORPUSCULAR VOLUME 97.1 fl (80.0-96.0); PLATELET COUNT, AUTOMATED 100 10^3/uL (150-450); RED BLOOD COUNT 3.82 10^6/uL (4.30-6.10); WHITE BLOOD COUNT 5.8 10^3/uL (4.0-10.0)
[2021-05-03 11:44] LABS: HEMOGLOBIN A1c 6.5 %
[2021-05-03 11:49] LABS: ALBUMIN 3.8 GM/DL (3.2-5.2); ALT/SGPT 41 U/L (12-78); BILIRUBIN,TOTAL 1.2 MG/DL (0.2-1.0); BLOOD UREA NITROGEN 10 MG/DL (7-18); CALCIUM LEVEL 8.8 MG/DL (8.8-10.2); CARBON DIOXIDE LEVEL 27 MEQ/L (21-32); CHLORIDE LEVEL 101 MEQ/L (98-107); CHOLESTEROL LEVEL 228 MG/DL (<200); CHOLESTEROL RISK RATIO 6.514 (<5); FERRITIN 13 NG/ML (26-388); GLOMERULAR FILTRATION RATE > 60.0 (>49); GLUCOSE, FASTING 119 MG/DL (70-100); HDL CHOLESTEROL 35 MG/DL (>40); IRON (FE) 80 UG/DL (65-175); LDL CHOLESTEROL 160 MG/DL (<100); NON-HDL-C 193 MG/DL; POTASSIUM SERUM 4.3 MEQ/L (3.5-5.1); SODIUM LEVEL 135 MEQ/L (136-145); TOTAL PROTEIN 7.3 GM/DL (6.4-8.2); TRIGLYCERIDES LEVEL 165 MG/DL (<150)
[2021-05-03 11:52] LABS: CREATININE, URINE 87.8 MG/DL; MALB URINE SIEMENS < 5.0 MG/L; MAU/CREAT RATIO 5.6 MCG/MG (0.0-30.0)
== END ==
LOC: M PLALAB 08:33
PROVIDERS: ATTEND Nurse Practitioner Adult Health
DX: D50.0 Iron deficiency anemia secondary to blood loss (chronic) (principal); E11.9 Type 2 diabetes mellitus without complications; Z13.220 Encounter for screening for lipoid disorders; E03.9 Hypothyroidism, unspecified

== ENCOUNTER → 2021-05-26 | Outpatient (CLI) | payer OTHER, MEDICARE ==
[~2021-05-26] MED LIST changes: +ASPI81TA26 PO; +THERTAB52 PO
== END ==
LOC: M LABSMTC 10:37
PROVIDERS: ATTEND Anesthesiology
DX: Z01.818 Encounter for other preprocedural examination (principal)

== ENCOUNTER 2021-05-31 06:58 | Day surgery (SDC) | payer OTHER, MEDICARE ==
[~2021-05-31] VITALS: Ht 175.3 cm; Wt 96.2 kg
[~2021-05-31 06:58] MED LIST changes: +LIDOCAINE 2% 100MG/5ML SDV (FOR ANES.) As Ordered ONE; +NS 1,000 ML IV ONE; +fentaNYL 100 MCG/2 ML INJECTION (J3010) As Ordered ONE; +propofoL 200 MG/20 ML VIAL As Ordered ONE
--- NOTE | 2021-05-31 08:11 | ROOR ---
Patient Name: Oscar Vegas Procedure Date: 05/31/2021 7:34 AM Date of : 1955 Age: 66 Room: [facility] Gender: Male Note Status: Finalized Procedure: Upper GI endoscopy Indications: For therapy of esophageal varices, 2nd degree variceal eradication (following bleed) Providers: Bernardo Shaw MD Referring MD: Shantel Haddad NP Requesting Provider: Medicines: Monitored Anesthesia Care Complications: No immediate complications. Procedure: Pre-Anesthesia Assessment: - Prior to the procedure, a History and Physical was performed, and patient medications and allergies were reviewed. The patient is competent. The risks and benefits of the procedure and the sedation options and risks were discussed with the patient. All questions were answered and informed consent was obtained. Patient identification and proposed procedure were verified by the physician, the nurse and the anesthesiologist in the procedure room. Mental Status Examination: alert and oriented. Airway Examination: normal oropharyngeal airway and neck mobility. Respiratory Examination: clear to auscultation. CV Examination: normal. Prophylactic Antibiotics: The patient does not require prophylactic antibiotics. Prior Anticoagulants: The patient has taken no previous anticoagulant or antiplatelet agents. ASA Grade Assessment: II - A patient with mild systemic disease. After reviewing the risks and benefits, the patient was deemed in satisfactory condition to undergo the procedure. The anesthesia plan was to use monitored anesthesia care (MAC). Immediately prior to administration of medications, the patient was re-assessed for adequacy to receive sedatives. The heart rate, respiratory rate, oxygen saturations, blood pressure, adequacy of pulmonary ventilation, and response to care were monitored throughout the procedure. The physical status of the patient was re-assessed after the procedure. The Endoscope was introduced through the mouth, and advanced to the second part of duodenum. The upper GI endoscopy was accomplished without difficulty. The patient tolerated the procedure well. Findings: Three columns of non-bleeding grade II varices were found in the lower third of the esophagus,. No stigmata of recent bleeding were evident and red silvano signs were present. Scarring from prior treatment was visible. Evidence of partial eradication was visible. Three bands were successfully placed with complete eradication, resulting in deflation of varices. There was no bleeding during and at the end of the procedure. Moderate portal hypertensive gastropathy was found in the entire examined stomach. The duodenal bulb and second portion of the duodenum were normal. Impression: - Non-bleeding grade II esophageal varices. Completely eradicated. Banded. - Portal hypertensive gastropathy. - Normal duodenal bulb and second portion of the duodenum. - No specimens collected. Recommendation: - Patient has a contact number available for emergencies. The signs and symptoms of potential delayed complications were discussed with the patient. Return to normal activities tomorrow. Written discharge instructions were provided to the patient. - Clear liquid diet today, then advance as tolerated to high fiber diet and low sodium diet. - Continue present medications. - Use Protonix (pantoprazole) 40 mg PO BID for 6 weeks. - Use sucralfate suspension 1 gram PO BID for 4 weeks. - Return to GI clinic in [facility] (address [address], [address], [place] [address]) in 4 -- 6 weeks. Please call GI clinic @ [phone] for apppointment date and time. - Return to primary care physician. Procedure Code(s): --- Professional --- 43462, Esophagogastroduodenoscopy, flexible, transoral; with band ligation of esophageal/gastric varices Diagnosis Code(s): --- Professional --- I85.00, Esophageal varices without bleeding K76.6, Portal hypertension K31.89, Other diseases of stomach and duodenum CPT copyright 2019 [employer]. All rights reserved. The codes documented in this report are preliminary and upon certified medical records coder review may be revised to meet current compliance requirements. Bernardo Shaw MD Bernardo Shaw MD 05/31/2021 8:10:50 AM Electronically signed by Bernardo Shaw MD Number of Addenda: 0 Note Initiated On: 05/31/2021 7:34 AM Estimated Blood Loss: Estimated blood loss: none.
[2021-05-31 08:21] VITALS: BP 130/78
== END 2021-05-31 08:40 | disposition home or self-care (01) ==
LOC: M OPP 06:58
PROVIDERS: ATTEND Internal Medicine Gastroenterology
DX: I85.00 Esophageal varices without bleeding (principal); K76.6 Portal hypertension; K31.89 Other diseases of stomach and duodenum; Z79.82 Long term (current) use of aspirin; Z79.84 Long term (current) use of oral hypoglycemic drugs; Z79.899 Other long term (current) drug therapy; Z88.8 Allergy status to other drugs, medicaments and biological substances; Z91.048 Other nonmedicinal substance allergy status; Z82.69 Family history of other diseases of the musculoskeletal system and connective tissue
CPT/HCPCS: 43244; J3010

== ENCOUNTER → 2021-08-16 | Outpatient (CLI) | payer OTHER, MEDICARE ==
[~2021-08-16] MED LIST changes: -LIDOCAINE 2% 100MG/5ML SDV (FOR ANES.) As Ordered ONE; -NS 1,000 ML IV ONE; -fentaNYL 100 MCG/2 ML INJECTION (J3010) As Ordered ONE; -propofoL 200 MG/20 ML VIAL As Ordered ONE
--- NOTE | 2021-08-16 16:46 | REP ---
INDICATION: EVAL LIVER MASS, ASCITES, EVAL FOR PORTAL HTN. COMPARISON: Abdominal ultrasound, 01/26/2021 CT angiography of the abdomen, 02/22/2021. TECHNIQUE: Complete ultrasound evaluation of the abdomen was performed. FINDINGS: The liver is coarsened in echotexture and increased in overall echogenicity. The liver is not enlarged. There is again noted partial portal vein thrombosis. The gallbladder wall is thickened which could be artifactual due to the presence of ascites. There are no gallstones evident. The common bile duct measures 3 mm in diameter. The pancreas is not well demonstrated. The spleen measures 16.4 x 15.3 x 7.7 cm. There is a benign splenule in the splenic hilum. The right kidney measures 11.4 x 5.9 x 5.4 cm and the left kidney measures 11.2 x 5.0 x 4.5 cm. The renal parenchymal echogenicity is normal. There are no focal abnormalities. There is no hydronephrosis. Limited evaluation of the abdominal aorta is unremarkable. There is no significant ascites at this time. IMPRESSION: 1. Fatty liver with coarsened echotexture consistent with cirrhosis. 2. Partial portal vein thrombosis. 3. Moderate splenomegaly. <Electronically signed by Michoacano Braswell > 08/16/21 3600
== END ==
LOC: M RAD 08:15
PROVIDERS: ATTEND Internal Medicine Gastroenterology
DX: K76.0 Fatty (change of) liver, not elsewhere classified (principal); R16.1 Splenomegaly, not elsewhere classified; I81 Portal vein thrombosis; I85.00 Esophageal varices without bleeding

== ENCOUNTER → 2021-09-17 | Outpatient (CLI) | payer OTHER, MEDICARE ==
[~2021-09-17] MED LIST changes: -ADV250INH; +ADV250INH INH; +IRON65TA2 PO; +LOSA50TA28 PO; -LOSA50TA88 PO; +OMEP-173 PO; -OMEP-218 PO; -OMEP-221; +OMEP40CA5
== END ==
LOC: M LABSMTC 09:52
PROVIDERS: ATTEND Anesthesiology
DX: Z01.812 Encounter for preprocedural laboratory examination (principal); Z11.52 Encounter for screening for COVID-19

== ENCOUNTER 2021-09-21 06:40 | Day surgery (SDC) | payer OTHER, MEDICARE ==
[~2021-09-21] VITALS: Ht 175.3 cm; Wt 95.3 kg
[~2021-09-21 06:40] MED LIST changes: -LOSA50TA28 PO; +LOSA50TA88 PO; +NS 1,000 ML IV ONE; -OMEP-173 PO; +OMEP-218 PO; +OMEP-221; -OMEP40CA5
--- OUTSIDE RECORDS SUMMARY | 2021-09-21 06:44 | CCD | Continuity of Care Document ---
Author Author Oscar SHEPPARD MD Organization Unknown Address [address] [place] [id number] Phone [phone] Care Team Providers Care Segment Assembler Name Role Phone Shantel Haddad AUTM [phone] Problems Active Problems Provider Date Essential hypertension Oscar Sheppard MD Onset: 019 Social History Type Date Description Comments Sex Unknown Tobacco Use Start: Unknown Patient has never smoked Allergies and adverse reactions Description No Known Drug Allergies Medications Active Medications SIG Qnty Indications Ordering Provide r Date Hydrocodone-Acetaminophen 5-325mg Tablets 1-2 tabs 4-6 hours as needed pain (please do not fill until 04/04/19) 20tabs Oscar Sheppard MD 03/25/2019 Losartan Potassium 50mg Tablets 1 by mouth every day Unknown Metformin HCL ER (Osm) 500mg Tablets ER 24HR take 2 tablet by mouth twice a day Unknow n Advair Diskus 250-50mcg/Dose Aeros ol inhale one puff by mouth twice a day Unknown Proair HFA 108(90Base) mcg/Act Aer osol 2 puffs four times a day as needed Unknown Hydrocodone Polistirex/Chlorpheniramine Polistirex 10- 8mg/5ML Suer 1 teaspoon by mouth twice a day as neede d for cough Unknown Aspir-[address] 1 by mouth every day Unknown Omeprazole 20mg Capsules DR 1 by mouth every day Unknown Voltaren 1% Gel apply to affected area three times a day Unknown Immunizations Description No Information Available Vital Signs Date Vital Result Comment 04/21/2019 8:57am Body Temperature 98.5 F 12/17/2018 10:43am Body Temperature 98.8 F Height 69 inches 5'9" Weight 205.50 lb BMI (Body Mass Index) 30.3 kg/m2 Results Description No Information Available Procedures Description No Information Available Medical Devices Description No Information Available Encounters Description No Information Available Assessments Description No Information Available Plan of Treatment 04/21/2019 - Oscar Sheppard MD* Z47.89 Encounter for other orthopedic aftercare* Follow up:* in 4-6 weeks with ANM for left knee recheck Functional Status Description No Information Available Mental Status Description No Information Available Referrals Description No Information Available
--- OUTSIDE RECORDS SUMMARY | 2021-09-21 06:44 | CCD | Continuity of Care Document ---
Author Author Oscar ROMERO M.D. Organization Unknown Address [address] [place] [address], [address] [place] [address] Phone [phone] Care Team Providers Care Information Systems Coordinator Name Role Phone Shantel Haddad Indra CHAIDEZM [phone] Problems Active Problems Provider Date Essential hypertension Bernardo Romero M.D. Onset: 05/2019 Social History Type Date Description Comments Sex Unknown ETOH Use Denies alcohol use Tobacco Use Start: Unknown Non Smoker Allergies and adverse reactions Active Allergies Criticality Reaction | Severity Comments Date NSAIDs Unable to assess criticality 04/12/2020 Medications Active Medications SIG Qnty Indications Ordering Provide r Date Sucralfate 1gm Tablets take 1 tablet by mouth 1/2 hour before meals and at bedtime(3 times a day) 270shana Roemro M.D. 05/31/2021 Pantoprazole Sodium 40mg Tablets D R twice daily -- one tablet in morning 1/2 hour before breakfast and one tablet prior to bedtime. taper after 8 weeks 180shana Romero M.D. 01/16/2021 Thiamine HCL 100mg Tablets 1 by mouth every day 90tabs K70.30 Bernardo Romero M.D. 2019 Folic Acid 1mg Tablets Take 1 Tablet By Mouth Once Daily After A Meal 90tabs K70.30 Bernardo talavera M.D. 04/12/2020 Propranolol HCL 10mg Tablets 1 tablet by mouth in morning and 2 tablets in evening. hold dose if having dizziness/ light headedness.. 270tabs K70.31 Bernardo Romero M.D. 2018 Diltiazem HCL ER Coated Beads 240mg Caps ER 24HR 1cap po qd Unknown Losartan Potassium 50mg Tablets 1tab po qd Unknown Aspirin 81mg Tablets DR 1tab po qd Unknown Advair Diskus 250-50mcg/Dose Aerosol bid Unknown Proair HFA 108(90Base) mcg/Act Aer osol prn Unknown Flonase Allergy Relief 50mcg/Act Suspension bid Unknown Metformin HCL 500mg Tablets 1tab po qd Unknown Viagra 50mg Tablets prn Unknown Chlorpheniramine Maleate 4mg Table ts 1tab po qid Unknown History Medications Sucralfate 1GM/10ML Suspension 10 milliliters by mouth half an hour before meals, and at bedtime. (3 times daily) ( if not covered give tablets) 840ml Bernardo read M.D. 05/31/2021 - 05/31/2021 Immunizations Description No Information Available Vital Signs Date Vital Result Comment 08/08/2021 8:59am BP Systolic 132 mmHg BP Diastolic 76 mmHg Height 69 inches 5'9" Weight 210.00 lb BMI (Body Mass Index) 31.0 kg/m2 [place] Body Weight 160 lb Weight 95.256 kg BSA (Body Surface Area) 2.11 m2 02/07/2021 9:01am BP Systolic 132 mmHg BP Diastolic 78 mmHg Height 69 inches 5'9" Weight 216.00 lb BMI (Body Mass Index) 31.9 kg/m2 [place] Body Weight 160 lb Weight 97.978 kg BSA (Body Surface Area) 2.13 m2 Results Test Acquired Date Facility Test Result H/L Range Note BUN & Creatinine ([facility]) 02/16/2021 [facility] [address] [place] [address] [phone] Blood Urea Nitrogen 11 mg/dL Normal 7-18 Creatinine With GFR 02/16/2021 [facility]ter Main Lab [address] [place] [address] [phone] Creatinine For GFR 0.80 mg/dL Normal 0.70-1.30 Glomerular Filtration Rate > 60.0 Normal >49 1 1 Units are mL/min/1.73 m2 Chronic Kidney Disease Staging per NKF: Stage I & II GFR >=60 Normal to Mildly Decreased Stage III GFR 30-59 Moderately Decreased Stage IV GFR 15-29 Severely Decreased Stage V GFR <15 Very Little GFR Left ESRD GFR <15 on [employer] Procedures Date Code Description Status 05/31/2021 38556 Endoscopy Upper GI W/Band Ligati on Of Varices Completed 02/07/2021 32966 Office/Outpatient Established Mo d MDM 30-39 Min Completed Medical Devices Description No Information Available Encounters Type Date Location Provider Dx Diagnosis Office Visit 02/07/2021 9:10a [facility] Gastroenterology [facility] ctice Bernardo Romero M.D. I85.00 Esophageal varices without b leeding K76.6 Portal hypertension K70.30 Alcoholic cirrhosis of liver without ascites I85.01 Esophageal varices with blee ding R93.3 Abnormal findings on dx imag ing of prt digestive tract Assessments Date Code Description Provider 08/08/2021 I85.00 Esophageal varices without bleed ing Bernardo Romero M.D. 08/08/2021 K70.30 Alcoholic cirrhosis of liver wit hout ascites Bernardo Romero M.D. 05/31/2021 I85.00 Esophageal varices without bleed ing Bernardo Romero M.D. 05/31/2021 K76.6 Portal hypertension Bernardo peoples M.D. 05/31/2021 K31.89 Other diseases of stomach and du odenum Bernardo Romero M.D. 02/07/2021 I85.00 Esophageal varices without bleed ing Bernardo Romero M.D. 02/07/2021 K76.6 Portal hypertension Bernardo peoples M.D. 02/07/2021 K70.30 Alcoholic cirrhosis of liver wit hout ascites Bernardo Romero M.D. 02/07/2021 I85.01 Esophageal varices with bleeding Bernardo Romero M.D. 02/07/2021 R93.3 Abnormal findings on diagnostic imaging of other parts of digestive tract Bernardo Romero M.D. Plan of Treatment 08/08/2021 - Bernardo Chandrala, M.D.* I85.00 Esophageal varices without bleeding * K70.30 Alcoholic cirrhosis of liver without ascites * * New Xrays:* Ultrasound Abdomen Complete, Ordered: 08/08/21 * New Orders:* Endoscopy, Ordered: 08/08/21 * Comments:* Impression:-- Alcoholic liver cirrhosis ( CTP A, MELD- Na 9) with dilated portal vein with ascites in past but recent Ultrasound abdomen showed resolution of ascites, large esophageal varices s/p therapy with banding, no prior hepatic encephalopathy --(Quit alcohol since Oct 2018.) -- Likely compensated liver cirrhosis. ( patient was previously evaluated in liver Center- no plan for transplant due to low MELD score).-- Acute post hemorrhagic anemia -- likely from past variceal bleeding.-- Abnormal Findings on ultrasound abdomen -- soft tissue in portal vein -- needs further testing. -- Tubular adenoma in Colon -- removed. Needs surveillance in 3 years - 2021. * Recommendations:* -- All prior test results reviewed and all questions answered. -- To continue pantoprazole 40 mg daily for atleast 8 weeks course-- Take bilingual interpreter on empty stomach, atleast half an hour before breakfast. -- Will continue on Propranolol dose for secondary prophylaxis for esophageal varices. As patient is also taking Calcium channel blockers discussed about the risks and benefits. -- Will obtain CT abdomen angiography protocol to evaluate for the abnormal finding in the Ultrasound abdomen. -- Low sodium diet ( < 2gm per day). -- Avoid hepatotoxic medications. Avoid NSAIDs, Benzodiazepines. -- Educated about complete cessation of alcohol. -- As patient is OFF alcohol for more than 6 months, and already referred to Liver transplant center (for evaluation for transplant listing in past). -- HCC surveillance with US abdomen and AFP levels every 6 months - Next due in July 2021. -- IN view of large varices in past endoscopy with partial eradication from EGD, will consider repeat EGD in 3-6 months to re-treat based on the clinical symptoms. -- Return to clinic in 3 months. . -- Follow up with PMD for routine medical care and other age appropriate health maintenance. Routine care for Liver cirrhosis: 1) Alcohol cessation/abstinence. Alcohol consumption worsens liver disease even in small quantities when you have underlying cirrhosis. 2) Hepatocellular cancer screening: Twice yearly -- ultrasound and AFP level. 3) Esophageal Variceal screening: At least every 3 years if not taking nonselective beta gabriel. 4) Vaccination: Hepatitis A, hepatitis B and pneumococcal vaccine if not taken before. Yearly influenza vaccine. 5) Bone health: Bone density every 3 years and measurement of vitamin D level twice yearly. 6) Nutrition: Low sodium ( <2gm/day) diet and high- protein diet ( 1.6 gm/ kg body weight). Patients with encephalopathy, benefit from protein snack in the evening. 7) Medications to avoid: Benzodiazepines, NSAIDs, sedating medications. Use opioids only when absolutely necessary. 8) Tylenol <2gm/day dose is safe in cirrhotic patients who do not consume alcohol. 9) Patient with prior encephalopathy should be on lactulose (with or without rifaximin) and must have 1-2 soft or loose bowel movements daily. Functional Status Description No Information Available Mental Status Description No Information Available Referrals Description No Information Available
--- OUTSIDE RECORDS SUMMARY | 2021-09-21 06:44 | CCD ---
Author Author [facility] Organization [facility] Address Unknown Phone Unavailable Care Team Providers Care Packing Inspector Name Role Phone José Miguel ROMERO MD Unavailable Unavailable José Miguel ROMERO MD Unavailable Unavailable José Miguel ROMERO MD Unavailable Unavailable José Miguel ROMERO MD Unavailable Unavailable José Miguel ROMERO MD Unavailable Unavailable José Miguel ROMERO MD Unavailable Unavailable José Miguel ROMERO MD Unavailable Unavailable José Miguel ROMERO MD Unavailable Unavailable José Miguel ROMERO MD Unavailable Unavailable José Miguel ROMERO MD Unavailable Unavailable José Miguel ROMERO MD Unavailable Unavailable José Miguel ROMERO MD Unavailable Unavailable José Miguel ROMERO MD Unavailable Unavailable José Miguel ROMERO MD Unavailable Unavailable José Miguel ROMERO MD Unavailable Unavailable José Miguel ROMERO MD Unavailable Unavailable José Miguel ROMERO MD Unavailable Unavailable José Miguel ROMERO MD Unavailable Unavailable José Miguel ROMERO MD Unavailable Unavailable José Miguel ROMERO MD Unavailable Unavailable José Miguel ROMERO MD Unavailable Unavailable José Miguel ROMERO MD Unavailable Unavailable José Miguel ROMERO MD Unavailable Unavailable José Miguel ROMERO MD Unavailable Unavailable José Miguel ROMERO MD Unavailable Unavailable José Miguel ROMERO MD Unavailable Unavailable José Miguel ROMERO MD Unavailable Unavailable José Miguel ROMERO MD Unavailable Unavailable José Miguel ROMERO MD Unavailable Unavailable José Miguel ROMERO MD Unavailable Unavailable José Miguel ROMERO MD Unavailable Unavailable José Miguel ROMERO MD Unavailable Unavailable José Miguel ROMERO MD Unavailable Unavailable Re-disclosure Warning The records that you are about to access may contain information from federally-assisted alcohol or drug abuse programs. If such information is present, then the following federally mandated warning applies: This information has been disclosed to you from records protected by federal confidentiality rules (42 CFR part 2). The federal rules prohibit you from making any further disclosure of this information unless further disclosure is expressly permitted by the written consent of the person to whom it pertains or as otherwise permitted by 42 CFR part 2. A general authorization for the release of medical or other information is NOT sufficient for this purpose. The Federal rules restrict any use of the information to criminally investigate or prosecute any alcohol or drug abuse patient.The records that you are about to access may contain highly sensitive health information, the redisclosure of which is protected by Article 27-F of the [facility] Public Health law. If you continue you may have access to information: Regarding HIV / AIDS; Provided by facilities licensed or operated by the [facility] Office of Mental Health; or Provided by the [facility] Office for People With Developmental Disabilities. If such information is present, then the following [facility] mandated warning applies: This information has been disclosed to you from confidential records which are protected by state law. State law prohibits you from making any further disclosure of this information without the specific written consent of the person to whom it pertains, or as otherwise permitted by law. Any unauthorized further disclosure in violation of state law may result in a fine or [place] [facility] [place] sentence or both. A general authorization for the release of medical or other information is NOT sufficient authorization for further disc losure. Family History Family Member Name Family Member Gender Family Member Status Date o f Status Description Data Source(s) Unknown Unknown Problem MEDENT ([facility]) Unknown Male Problem MED[facility] ([facility] ) Encounters Encounter Providers Location Date Indications Data Source(s ) Unknown [address] [place] [address] 07/03/2021 12:00:00 AM EDT eCW1 ([facility]) Outpatient [address] [place] [address] 05/21/2021 12:00:00 AM EDT eCW1 ([facility]) [place] [address] [place] [address] 05/21/2021 12:00:00 AM EDT eCW1 ([facility]) Office Visit, Est Pt., Level 2 FC [address] [place] [address] 05/03/2021 12:00:00 AM EDT eCW1 ([facility]) [place] [address] [place] [address] 04/13/2021 12:00:00 AM EDT [facility] [place] [address] [address] 04/11/2021 12:00:00 AM EDT eCW1 ([facility]) [place] [address] [place] [address] 04/06/2021 12:00:00 AM EDT eCW1 ([facility]) [place] [address] [place] [address] 03/29/2021 12:00:00 AM EDT eCW1 ([facility]) [place] [address] [place] [address] 03/05/2021 12:00:00 AM EDT eCW1 ([facility]) Outpatient Attender: ANTONIA Solomon/Dereck/Ramu stokes/Raul 02/07/2021 09:10:00 AM EDT MEDENT ([facility]) Office Visit, Est Pt., Level 4 PC [address] [place] [address] 12/14/2020 12:00:00 AM EST eCW1 ([facility]) [place] [address] [address] 11/30/2020 12:00:00 AM EST [facility] Attender: ANTONIA Solomon/Dereck/Ramu stokes/Reincisco 11/02/2020 01:10:00 PM EST [facility] ([facility]) [place] [address] [place] [address] 09/07/2020 12:00:00 AM EST eCW1 ([facility]) [place] [address] [place] [address] 08/21/2020 12:00:00 AM EST eCW1 ([facility]) [place] [address] [place] [address] 08/17/2020 12:00:00 AM EDT eCW1 ([facility]) [place] [address] [place] [address] 08/08/2020 12:00:00 AM EDT eCW1 ([facility]) Immunizations Vaccine Date Status Description Data Source(s) COVID-19 VACCINE Pfizer 09/03/2021 12:00:00 AM EST completed [facility] Vaccine Series Complete: NOThis Data was Submitted to [facility] Via [facility]. COVID-19 VACC, MRNA(PFIZER)/PF 09/03/2021 12:00:00 AM EST completed [facility] influenza, recombinant, quadrIvalent,injectable, prese rvative free 08/21/2020 03:39:00 PM EST completed eCW1 ([facility]) influenza, recombinant, quadrIvalent,injectable, prese rvative free 08/21/2020 03:39:00 PM EST completed eCW1 ([facility]) influenza, recombinant, quadrIvalent,injectable, prese rvative free 08/21/2020 03:39:00 PM EST completed eCW1 ([facility]) influenza, recombinant, quadrIvalent,injectable, prese rvative free 08/21/2020 03:39:00 PM EST completed eCW1 ([facility]) influenza, recombinant, quadrIvalent,injectable, prese rvative free 08/21/2020 03:39:00 PM EST completed eCW1 ([facility]) influenza, recombinant, quadrIvalent,injectable, prese rvative free 08/21/2020 03:39:00 PM EST completed eCW1 ([facility]) influenza, recombinant, quadrIvalent,injectable, prese rvative free 08/21/2020 03:39:00 PM EST completed eCW1 ([facility]) influenza, recombinant, quadrIvalent,injectable, prese rvative free 08/21/2020 03:39:00 PM EST completed eCW1 ([facility]) influenza, recombinant, quadrIvalent,injectable, prese rvative free 08/21/2020 03:39:00 PM EST completed eCW1 ([facility]) influenza, recombinant, quadrIvalent,injectable, prese rvative free 08/21/2020 03:39:00 PM EST completed eCW1 ([facility]) influenza, recombinant, quadrIvalent,injectable, prese rvative free 08/21/2020 03:39:00 PM EST completed eCW1 ([facility]) influenza, recombinant, quadrIvalent,injectable, prese rvative free 08/21/2020 03:39:00 PM EST completed eCW1 ([facility]) influenza, recombinant, quadrIvalent,injectable, prese rvative free 08/21/2020 03:39:00 PM EST completed eCW1 ([facility]) Medications Medication Brand Name Start Date Product Form Dose Route Admi nistrative Instructions Pharmacy Instructions Status Indications Reaction Description Data Source(s) Sucralfate 100 MG/ML Oral Suspension Sucralfate 05/31/2021 12:00:00 A M EDT ORAL completed MEDENT ([facility] ) Sucralfate 1000 MG Oral Tablet Sucralfate 05/31/2021 12:00:00 AM EDT ORAL active MED[facility] ([facility], ) Levofloxacin 500 MG Oral Tablet Levaquin 500 MG Levaquin 500 MG 05/21/2021 12:00:00 AM EDT 1.0 {tablet} active Le vaquin 500 MG eCW1 ([facility]) Levofloxacin 500 MG Oral Tablet Levaquin 500 MG Levaquin 500 MG 05/21/2021 12:00:00 AM EDT 1.0 {tablet} active Le vaquin 500 MG eCW1 ([facility]) Levofloxacin 500 MG Oral Tablet Levaquin 500 MG Levaquin 500 MG 05/21/2021 12:00:00 AM EDT 1.0 {tablet} active Le vaquin 500 MG eCW1 ([facility]) Augmentin 875-125 MG UNK 04/11/2021 12:00:00 AM EDT 1.0 {tablet } active Augmentin 875-125 MG eCW1 ([facility]) Augmentin 875-125 MG UNK 04/11/2021 12:00:00 AM EDT 1.0 {tablet } active Augmentin 875-125 MG eCW1 ([facility]) pantoprazole 40 MG Delayed Release Oral Tablet Pantoprazole Sodium 01/16/2021 12:00:00 AM EDT active M EDENT ([facility], ) Sucralfate 100 MG/ML Oral Suspension Sucralfate 01/16/2021 12:00:00 A M EDT ORAL completed MEDENT ([facility], ) pantoprazole 20 MG Delayed Release Oral Tablet Pantoprazole Sodium 12/20/2020 12:00:00 AM EST completed MEDENT ([facility], ) pantoprazole 40 MG Delayed Release Oral Tablet Pantoprazole Sodium 09/26/2020 12:00:00 AM EST completed MEDENT ([facility], ) Insurance Providers Payer name Policy type / Coverage type Policy ID Covered democrat ID Covered democrat's relationship to fuchs Policy Fuchs Plan Information [employer] (pr) [facility] Part B [id number] Family Dependent [id number] A[employer]na (pr) [facility] Part B [id number] Family Dependent [id number] A[employer]na (pr) [facility] B [id number] Family Dependent [id number] Medicare [place] Primary [id number] Self [id number] [place] [employer] [place] Commercial [id number] Self [id number] Medicare [place] Medicare Primary [id number] Self [id number] [place] [employer] [place]FL[place] [facility] Part B [id number] Self [id number] [place] [employer] [place] [facility] Part B [id number] Self [id number] [employer]na Commercial [id number] Family Dependent [id number] Medicare [place]/N[place] Medicare Primary [id number] Self [id number] [employer]na Commercial [id number] Family Dependent [id number] ANSI-Commercial [id number] ANSI-Medicare Part B [id number] ANSI-Commercial [id number] ANSI-Commercial [id number] ANSI-Commercial [id number] ANSI-Medicare Part B [id number] ANSI-Commercial [id number] ANSI-Commercial [id number] ANSI-Medicare Part B [id number] ANSI-Commercial [id number] ANSI-Commercial [id number] [id number]-[id number]-[id number]-[id number] ANSI-Medicare Part B [id number] ANSI-Commercial [id number] [facility] [id number] ANSI-Commercial [id number] [facility]-Medicare Part B [id number] ANSI-Commercial [id number]-[id number] ANSI-Commercial 61b9p0ql-v79r-7067-883c-61u9bu59y40a 16y2q6xl-z80c-9911-776x-62e5xz88o53s [facility] [id number] ANSI-Commercial [id number]-[id number] [id number]-40s3-170q-0tr8-h6hb6jz7lm03 ANSI-Commercial [id number]-2tn6-[id number] 2k978i37-10ky-4bx6-l9f4-24trpj7g16n6 ANSI-Commercial [id number]-[id number] [id number]-[id number] ANSI-Commercial [id number]-[id number] [id number]-qv74-58f5-1571-28s6d7t3wl7a ANSI-Commercial [id number]-a53n-[id number] ANSI-Commercial [id number]-[id number]-c2172g3u1h12 [id number]-1mlr-[id number] ANSI-Commercial 83z7of03-4f52-0pf0-gka7-59a74g6f4v16 71e8om09-1r91-3zj0-vmw9-01n52f7t2f29 ANSI-Commercial 25hym159-1c4t-2537-kzrt-a7n1xfrpd20h 44oai201-7d8t-8790-ivgo-r2s5yjdcq30d ANSI-Commercial 88c91o65-79mx-4472-[id number] 54b86h60-18fk-6296-vq71-09750kj5rq16 ANSI-Commercial [id number]-l070-5523-t8u1-[id number] pbwr7598-l570-0726-u9f6-[id number] ANSI-Commercial 07uv0g67-e56t-9t46-m906-nq4jc44i3z18 01cs2o96-i03k-2l22-o407-zr2nh15s4v92 ANSI-Commercial [id number]-614s-[id number] [id number]-991q-[id number] [facility] [place] [id number] SP [id number] ANSI-Commercial [id number]-n482-[id number] 75spmju7-11n2-7326-h094-k5whci1251i4 ANSI-Commercial [id number]-u1v7-3m66-[id number] rh36u4vk-g3q1-8o83-[id number] ANSI-Commercial [id number]-[id number] ANSI-Commercial [id number]-819j-[id number] ANSI-Commercial [id number]-msr5-94xj-m84i-[id number]-epv1-73vc-w69u-wgciw31c71k1 ANSI-Commercial [id number]-[id number]-w5vs-76o4-[id number] ANSI-Commercial [id number]-a360-67t9-s103-[id number] cch3h12e-t996-10l8-v631-[id number] ANSI-Commercial [id number]-1970-[id number] ANSI-Commercial [id number]-[id number] MEDICARE [id number] SP [id number] ANSI-Commercial [id number] [employer] [place] [id number] [place] [id number] FOR LIFE [id number] SP [id number] [employer] [place] [id number] [place] [id number] FOR LIFE O [id number] S [id number] MEDICARE C [id number] S [id number] [employer] [place] [place] O [id number] S [id number] Medicare [place]/[facility] Medicare Primary [id number] Self [id number] Problems, Conditions, and Diagnoses Code Display Name Description Problem Type Effective Dates Data Source(s) L82.1 [id number] Seborrheic keratoses Problem 03/05/2021 12:0 0:00 AM EDT eCW1 ([facility]) L81.4 [id number] Lentigines Problem 03/05/2021 12:00:00 AM ED T eCW1 ([facility]) B07.9 [id number] Verruca vulgaris Problem 03/05/2021 12:00:00 AM EDT eCW1 ([facility]) Z12.83 884301403 Skin cancer screening Problem 03/05/2021 12: 00:00 AM EDT eCW1 ([facility]) L85.1 [id number] Stucco keratoses Problem 03/05/2021 12:00:00 AM EDT eCW1 ([facility]) I49.9 [id number] Irregular heart beat Problem 12/14/2020 12:0 0:00 AM EST eCW1 ([facility]) Surgeries/Procedures Procedure Description Date Indications Data Source(s) Endoscopy Upper GI W/Band Ligation Of Varices 05/31/20 12:00:00 AM EDT MEDENT ([facility], ) OFFICE OUTPATIENT VISIT 25 MINUTES 02/07/2021 12:00:00 AM EDT MEDENT ([facility], ) Endoscopy Upper GI Biopsy 01/16/2021 12:00:00 AM EDT MEDENT ([facility], ) Endoscopy Upper GI W/Band Ligation Of Varices 01/17/20 12:00:00 AM EDT MEDENT ([facility], ) ECG ROUTINE ECG W/LEAST 12 LDS W/I&R 12/14/2020 12:00: 00 AM EST eCW1 ([facility]) Endoscopy Upper GI W/Band Ligation Of Varices 09/25/20 12:00:00 AM EST MEDENT ([facility], ) Immunization: Flublok Quadrivalent (18 years & older) 0.5mL IM (Influenza) 08/21/2020 12:00:00 AM EST eCW1 ([facility]) Results ID Date Data Source [id number] 09/17/2021 10:15:00 AM EST [facility] Name Value Range Interpretation Code Description Data Marce rce(s) Supporting Document(s) SARS-CoV-2 (COVID-19) RNA [Presence] in Respiratory specimen by PHOEBE with probe detection Not Detected [facility] This lab was ordered by [facility] and reported by [employer] ID Date Data Source [id number] 05/26/2021 10:40:00 AM EDT [facility] Name Value Range Interpretation Code Description Data Marce rce(s) Supporting Document(s) SARS-CoV-2 (COVID-19) RNA [Presence] in Respiratory specimen by PHOEBE with probe detection Not Detected [facility] This lab was ordered by [facility] and reported by [employer] ID Date Data Source [id number] 02/16/2021 09:44:00 AM EDT MEDENT ([facility], ) Name Value Range Interpretation Code Description Data Marce rce(s) Supporting Document(s) Glomerular Filtration Rate Laboratory test result Normal (applies to non- numeric results) [facility] <content>Units are mL/min/1.73 m2</content>
<content></content>
<content>Chronic Kidney Disease Staging per NKF:</content>
<content></content>
<content>Stage I & II GFR >=60 Normal to Mildly Decreased</content>
<content>Stage III GFR 30- 59 Moderately Decreased</content>
<content>Stage IV GFR 15-29 Severely Decreased</content>
<content>Stage V GFR <15 Very Little GFR Left</content>
<content>ESRD GFR <15 on SOLE CONFORMING MACHINE OPERATOR</content>
<content></content> Creatinine For GFR 0.80 mg/dL 0.70-1.30 Normal (applies to non -numeric results) [facility]) ID Date Data Source [id number] [facility] Name Value Range Interpretation Code Description Data Marce rce(s) Supporting Document(s) Urea nitrogen [Mass/volume] in Serum or Plasma 11 mg/dL 7 -18 Normal (applies to non-numeric results) [facility]) ID Date Data Source [id number] [facility]/26[facility]2021 07:[facility] Name Value Range Interpretation Code Description Data Marce rce(s) Supporting Document(s) Platelets reticulated/100 platelets in Blood by Automated count 5.7 % 0.0-10.91 Normal (applies to non-numeric results) [facility]) ID Date Data Source [id number] 01/26/2021 07:35:00 AM [facility]) Name Value Range Interpretation Code Description Data Marce rce(s) Supporting Document(s) Ast/Sgot 36 U/L 7-37 Normal (applies to non-numeric resul ts) [facility]) Alkaline Phosphatase 153 U/L 45-117 Above high normal [facility] ([facility]) Alt/SGPT 46 U/L 12-78 Normal (applies to non-numeric resul ts) [facility]) Bilirubin,Total 0.9 mg/dL 0.2-1.0 Normal (applies to non-numeric results) [facility]) Bilirubin,Direct 0.2 mg/dL 0.0-0.2 Normal (applies to non-numeric results) [facility]) Total Protein 7.3 GM/DL 6.4-8.2 Normal (applies to non-numeric re sults) [facility]) Albumin/Globulin Ratio 1.0 Normal (applies to non-n umeric results) [facility]) Albumin 3.7 GM/DL 3.2-5.2 Normal (applies to non-numeric resul ts) [facility]) ID Date Data Source [id number] 01/26/2021 07:35:00 AM EDT [facility]) Name Value Range Interpretation Code Description Data Marce rce(s) Supporting Document(s) Gamma glutamyl transferase [Enzymatic activity/volume] in Serum or Plasma 208 U/L 15-85 Above high normal [facility]) ID Date Data Source [id number] 01/26/2021 07:35:00 AM EDT [facility]) Name Value Range Interpretation Code Description Data Marce rce(s) Supporting Document(s) Iron (Fe) 77 ug/dL 65-175 Normal (applies to non-numeric resul ts) [facility]) Percent Saturation 26.2 % 19.7-50.0 Normal (applies to non-numer ic results) [facility]) Total Iron Binding Capacity 294 ug/dL 250-450 Norm al (applies to non-numeric results) [facility]) ID Date Data Source [id number] 01/26/2021 07:35[facility] Name Value Range Interpretation Code Description Data Marce rce(s) Supporting Document(s) Onrrz-8-Jawebsypjeo [Mass/volume] in Serum or Plasma 2.0 ng/mL Normal (applies to non-numeric results) [facility]) THE AFP ASSAY IS PERFORMED ON THE [employer] BY CHEMILUMINESCENCE AND SHOULD NOT BE COMPARED INTERCHANGEABLY WITH OTHER METHODS. IT SHOULD NOT BE USED ALONE A SCREENING TEST OR DIAGNOSIS FOR THE PRESENCE OR ABSENCE OF MALIGNANT DISEASE. THESE RESULTS ARE NOT INTERPRETABLE IN FEMALES. PREDICTIONS OF DISEASE RECURRENCE SHOULD NOT BE BASED SOLELY ON VALUES OBTAINED FROM SERIAL PATIENT SERUM VALUES. ID Date Data Source [id number] 01/26/2021 07:35[facility] Name Value Range Interpretation Code Description Data Marce rce(s) Supporting Document(s) White Blood Count 5.3 10 4.0-10.0 Normal (applies to non-numeri c results) [facility] ([facility]) Red Blood Count 4.07 10 4.30-6.10 Below low normal [facility] ([facility]) Hemoglobin 13.4 g/dL 13.5-17.5 Below low normal [facility] ( [facility]) Hematocrit 38.9 % 42.0-52.0 Below low normal [facility] Mean Corpuscular Hemoglobin 32.9 pg 27.0-33.0 Norm al (applies to non-numeric results) [facility] ([facility]) Mean Corpuscular Volume 95.6 fl 80.0-96.0 Normal ( applies to non-numeric results) [facility] ([facility]) Red Cell Distribution Width 14.0 % 11.5-14.5 Norm al (applies to non-numeric results) [facility] ([facility]) Mean Corpuscular HGB Conc 34.4 g/dL 32.0-36.5 Normal (applies to non-numeric results) [facility] ([facility]) Platelet Count, Automated 68 10 150-450 Below low normal [facility] ([facility]) Lymph % 14.1 % 24.0-44.0 Below low normal [facility] ( [facility]) Neutrophils % 72.2 % 36.0-66.0 Above high normal [facility] ([facility]) [place] % 11.0 % 2.0-8.0 Above high normal [facility] ([facility]) Baso % 0.6 % 0.0-1.0 Normal (applies to non-numeric resul ts) [facility] ([facility]) Eos % 1.9 % 0.0-3.0 Normal (applies to non-numeric resul ts) [facility] ([facility]) Immature Granulocyte % 0.2 % 0-3.0 Normal (applies to non-n umeric results) [facility] ([facility]) Nucleated Red Blood Cell % 0.0 % 0-0 Normal (applies to n on-numeric results) [facility] ([facility]) Neutrophils # 3.8 10 1.5-8.5 Normal (applies to non-numeric re sults) [facility] ([facility]) Lymph # 0.7 10 1.5-5.0 Below low normal MEDENT ( [facility]) Eos # 0.1 10 0.0-0.5 Normal (applies to non-numeric resul ts) MED[facility] ([facility]) [place] # 0.6 10 0.0-0.8 Normal (applies to non-numeric resul ts) [facility] ([facility]) Baso # 0.0 10 0.0-0.2 Normal (applies to non-numeric resul ts) [facility] ([facility]) ID Date Data Source [id number] 01/16/2021 07:44:00 AM EDT [facility] ([facility]) Name Value Range Interpretation Code Description Data Marce rce(s) Supporting Document(s) Surgical pathology study Laboratory test result MEDENT ([facility]) <content>FINAL DIAGNOSIS</content>
< content></content>
<content>Stomach, biopsy:</content>
<content>Gastric mucosa with mild reactive gastropathy.</content>
<content>No evidence for H. pylori-like organisms on H&E stain.</content>
<content>01/17/2021 - 1424</content>
<content></content>
<content>CLINICAL DIAGNOSIS</content>
<content></content>
<content>Esophageal varices</content>
<content>01/16/2021 - 1507</content>
<content></content>
<content>GROSS DIAGNOSIS</content>
<content></content>
<content>Received in formalin labeled "gastric biopsy R/O H. pylori" and consists</content>
<content>of one fragment of miles tissue 0.4 x 0.3 x 0.2 cm. All in one.</content>
<content>-SV</content>
<content>01/16/2021 - 1507</content>
<content></content>
<content>Signed HERSON HAMILTON MD 01/17/2021 1546</content>
<content></content> ID Date Data Source [id number] 01/11/2021 12:00:00 PM EDT [facility] Name Value Range Interpretation Code Description Data Marce rce(s) Supporting Document(s) SARS coronavirus 2 RNA Not Detected [facility] This lab was ordered by [facility] and reported by [facility]. ID Date Data Source [id number] 09/20/2020 11:15:00 AM EST [facility] Name Value Range Interpretation Code Description Data Marce rce(s) Supporting Document(s) SARS coronavirus 2 RNA [facility] This lab was ordered by [facility] and reported by [facility]. ID Date Data Source [id number] 07/28/2020 07:53:00 AM EDT [facility] Name Value Range Interpretation Code Description Data Marce rce(s) Supporting Document(s) Dsshr-[id number] [Mass/volume] in Serum or Plasma 2.0 ng/mL Normal (applies to non-numeric results) [facility], ) THE AFP ASSAY IS PERFORMED ON THE [employer]R BY CHEMILUMINESCENCE AND SHOULD NOT BE COMPARED INTERCHANGEABLY WITH OTHER METHODS. IT SHOULD NOT BE USED ALONE A SCREENING TEST OR DIAGNOSIS FOR THE PRESENCE OR ABSENCE OF MALIGNANT DISEASE. THESE RESULTS ARE NOT INTERPRETABLE IN FEMALES. PREDICTIONS OF DISEASE RECURRENCE SHOULD NOT BE BASED SOLELY ON VALUES OBTAINED FROM SERIAL PATIENT SERUM VALUES. ID Date Data Source [id number] 07/28/2020 07:53:00 AM EDT [facility] Name Value Range Interpretation Code Description Data Marce rce(s) Supporting Document(s) White Blood Count 4.2 10 4.0-10.0 Normal (applies to non-numeri c results) [facility], ) Hemoglobin 13.4 g/dL 13.5-17.5 Below low normal MED[facility] ( [facility]) Red Blood Count 4.45 10 4.30-6.10 Normal (applies to non-numeric results) [facility] ([facility]) Hematocrit 41.4 % 42.0-52.0 Below low normal [facility] ( [facility]) Mean Corpuscular HGB Conc 32.4 g/dL 32.0-36.5 Normal (applies to non-numeric results) [facility] ([facility]) Mean Corpuscular Hemoglobin 30.1 pg 27.0-33.0 Norm al (applies to non-numeric results) [facility] ([facility]) Mean Corpuscular Volume 93.0 fl 80.0-96.0 Normal ( applies to non-numeric results) [facility] ([facility]) Red Cell Distribution Width 17.7 % 11.5-14.5 Above high normal [facility] ([facility]) Platelet Count, Automated 56 10 150-450 Below low normal [facility] ([facility]) Neutrophils % 71.2 % 36.0-66.0 Above high normal MEDE NT ([facility]) Lymph % 16.5 % 24.0-44.0 Below low normal [facility] ( [facility]) Eos % 2.1 % 0.0-3.0 Normal (applies to non-numeric resul ts) [facility] ([facility]) [place] % 9.5 % 0.0-5.0 Above high normal [facility] ([facility]) Baso % 0.5 % 0.0-1.0 Normal (applies to non-numeric resul ts) [facility] ([facility]) Nucleated Red Blood Cell % 0.0 % 0-0 Normal (applies to n on-numeric results) [facility] ([facility]) Immature Granulocyte % 0.2 % 0-3.0 Normal (applies to non-n umeric results) [facility] ([facility]) Neutrophils # 3.0 10 1.5-8.5 Normal (applies to non-numeric re sults) [facility] ([facility]) Lymph # 0.7 10 1.5-5.0 Below low normal [facility] Eos # 0.1 10 0.0-0.5 Normal (applies to non-numeric resul ts) [facility]) [place] # 0.4 10 0.0-0.8 Normal (applies to non-numeric resul ts) [facility]) Baso # 0.0 10 0.0-0.2 Normal (applies to non-numeric resul ts) [facility]) ID Date Data Source [id number] 07/28/2020 07:53:00 AM EDT [facility] ([facility]) Name Value Range Interpretation Code Description Data Marce rce(s) Supporting Document(s) Iron (Fe) 110 ug/dL 65-175 Normal (applies to non-numeric resul ts) [facility] ([facility]) Total Iron Binding Capacity 323 ug/dL 250-450 Norm al (applies to non-numeric results) [facility] ([facility]) Percent Saturation 34.1 % 19.7-50.0 Normal (applies to non-numer ic results) [facility] ([facility]) ID Date Data Source [id number] 07/28/2020 07:53:00 AM EDT [facility] Name Value Range Interpretation Code Description Data Marce rce(s) Supporting Document(s) Platelets reticulated/100 platelets in Blood by Automated count 7.0 % 0.0-10.91 Normal (applies to non-numeric results) [facility] ([facility]) Procedure Social History Code Duration Value Status Description Data Source(s ) Smoking 05/21/2021 12:00:00 AM EDT Never Smoker completed Never S mocinthia eCW1 ([facility]) Smoking 05/21/2021 12:00:00 AM EDT Never Smoker completed Never S moker eCW1 ([facility]) Smoking 05/21/2021 12:00:00 AM EDT Never Smoker completed Never S moker eCW1 ([facility]) Smoking 05/06/2021 12:00:00 AM EDT Never Smoker completed Never S moker eCW1 ([facility]) Smoking 04/11/2021 12:00:00 AM EDT Never Smoker completed Never S moker eCW1 ([facility]) Smoking 04/11/2021 12:00:00 AM EDT Never Smoker completed Never S moker eCW1 ([facility]) Smoking 03/05/2021 12:00:00 AM EDT Never Smoker completed Never S moker eCW1 ([facility]) Smoking 03/05/2021 12:00:00 AM EDT Never Smoker completed Never S moker eCW1 ([facility]) Smoking 03/05/2021 12:00:00 AM EDT Never Smoker completed Never S moker eCW1 ([facility]) Smoking 12/16/2020 12:00:00 AM EST Never Smoker completed Never S moker eCW1 ([facility]) Smoking 08/08/2020 12:00:00 AM EDT Never Smoker completed Never S moker eCW1 ([facility]) Smoking 08/08/2020 12:00:00 AM EDT Never Smoker completed Never S moker eCW1 ([facility]) Smoking 08/08/2020 12:00:00 AM EDT Never Smoker completed Never S moker eCW1 ([facility]) Smoking 08/08/2020 12:00:00 AM EDT Never Smoker completed Never S moker eCW1 ([facility]) Smoking 08/08/2020 12:00:00 AM EDT Never Smoker completed Never S moker eCW1 ([facility]) Vital Signs ID Date Data Source UNK Name Value Range Interpretation Code Description Data Source(s) Systolic blood pressure 132 mm[Hg] 132 mm[Hg] [facility] Body mass index (BMI) [Ratio] 31.0 kg/m2 31.0 k g/m2 [facility] ([facility]) [place] body weight 160 [lb_av] 160 [lb_av] MEDEN T ([facility]) Body weight 95.256 kg 95.256 kg [facility] Body surface area Derived from formula 2.11 m2 2.11 m2 [facility] ([facility]) Diastolic blood pressure 76 mm[Hg] 76 mm[Hg] [facility] ([facility]) Body height 69 [in_i] 69 [in_i] [facility] 5'9" Body weight 210.00 [lb_av] 210.00 [lb_av] MEDEN T ([facility]) Body weight 211 [lb_av] 211 [lb_av] eCW1 ([facility]) Body weight 95.71 kg 95.71 kg eCW1 ([facility]) Diastolic blood pressure 60 mm[Hg] 60 mm[Hg] eCW1 ([facility]) Body height 69 [in_i] 69 [in_i] eCW1 ([facility]) Body mass index (BMI) [Ratio] 31.16 kg/m2 31.16 kg/m2 eCW1 ([facility]) Heart rate 73 /min 73 /min eCW1 ([facility]) Respiratory rate 18 /min 18 /min eCW1 ([facility]) Body temperature 98.7 [degF] 98.7 [degF] eCW1 ( [facility]) Systolic blood pressure 124 mm[Hg] 124 mm[Hg] e CW1 ([facility]) Heart rate 72 /min 72 /min eCW1 ([facility]) Respiratory rate 18 /min 18 /min eCW1 ([facility]) Body weight 211.0 [lb_av] 211.0 [lb_av] eCW1 ([facility]) Body height 69 [in_i] 69 [in_i] eCW1 ([facility]) Body mass index (BMI) [Ratio] 31.16 kg/m2 31.16 kg/m2 eCW1 ([facility]) Body temperature 98.4 [degF] 98.4 [degF] eCW1 ( [facility]) Systolic blood pressure 110 mm[Hg] 110 mm[Hg] e CW1 ([facility]) Diastolic blood pressure 68 mm[Hg] 68 mm[Hg] eCW1 ([facility]) Body weight 212 [lb_av] 212 [lb_av] eCW1 ([facility]) Body height 69 [in_i] 69 [in_i] eCW1 ([facility]) Body mass index (BMI) [Ratio] 31.30 kg/m2 31.30 kg/m2 eCW1 ([facility]) Heart rate 74 /min 74 /min eCW1 ([facility]) Respiratory rate 18 /min 18 /min eCW1 ([facility]) Body temperature 97.3 [degF] 97.3 [degF] eCW1 ( [facility]) Systolic blood pressure 122 mm[Hg] 122 mm[Hg] e CW1 ([facility]) Diastolic blood pressure 74 mm[Hg] 74 mm[Hg] eCW1 ([facility]) Body weight 217 [lb_av] 217 [lb_av] eCW1 ([facility]) Systolic blood pressure 128 mm[Hg] 128 mm[Hg] e CW1 ([facility]) Diastolic blood pressure 70 mm[Hg] 70 mm[Hg] eCW1 ([facility]) Body height 69 [in_i] 69 [in_i] eCW1 ([facility]) Body mass index (BMI) [Ratio] 32.04 kg/m2 32.04 kg/m2 eCW1 ([facility]) Body height 69 [in_i] 69 [in_i] MEDSLIM ([facility], ) 5'9" Body weight 216.00 [lb_av] 216.00 [lb_av] MEDEN T ([facility], ) Body mass index (BMI) [Ratio] 31.9 kg/m2 31.9 k g/m2 MEDSLIM ([facility], ) [place] body weight 160 [lb_av] 160 [lb_av] MEDEN T ([facility] ) Body weight 97.978 kg 97.978 kg [facility] Body surface area Derived from formula 2.13 m2 2.13 m2 [facility] ([facility]) Body height 69 [in_i] 69 [in_i] [facility] ([facility]) 5'9" Systolic blood pressure 132 mm[Hg] 132 mm[Hg] M EDENT ([facility]) Diastolic blood pressure 78 mm[Hg] 78 mm[Hg] [facility] ([facility]) Body weight 216.00 [lb_av] 216.00 [lb_av] MEDEN T ([facility]) [place] body weight 160 [lb_av] 160 [lb_av] MEDEN T ([facility]) Body weight 97.978 kg 97.978 kg [facility] ([facility]) Body surface area Derived from formula 2.13 m2 2.13 m2 [facility] ([facility]) Body mass index (BMI) [Ratio] 31.9 kg/m2 31.9 k g/m2 [facility] ([facility]) Body weight 209 [lb_av] 209 [lb_av] eCW1 ([facility]) Respiratory rate 18 /min 18 /min eCW1 ([facility]) Body temperature 98.6 [degF] 98.6 [degF] eCW1 ( [facility]) Body height 69 [in_i] 69 [in_i] eCW1 ([facility]) Systolic blood pressure 120 mm[Hg] 120 mm[Hg] e CW1 ([facility]) Diastolic blood pressure 78 mm[Hg] 78 mm[Hg] eCW1 ([facility]) Body mass index (BMI) [Ratio] 30.86 kg/m2 30.86 kg/m2 W1 ([facility]) Heart rate 58 /min 58 /min W1 ([facility] hospital) Body height 69 [in_i] 69 [in_i] [facility] ([facility]) 5'9" Systolic blood pressure 146 mm[Hg] 146 mm[Hg] M EDENT ([facility]) Body weight 220.00 [lb_av] 220.00 [lb_av] MEDEN T ([facility]) Body mass index (BMI) [Ratio] 32.5 kg/m2 32.5 k g/m2 [facility] ([facility]) Diastolic blood pressure 78 mm[Hg] 78 mm[Hg] [facility] ([facility]) [place] body weight 160 [lb_av] 160 [lb_av] MEDEN T ([facility]) Body weight 99.792 kg 99.792 kg [facility] Body surface area Derived from formula 2.15 m2 2.15 m2 [facility] ([facility]) Body height 69 [in_i] 69 [in_i] [facility] 5'9" Body weight 220.00 [lb_av] 220.00 [lb_av] MEDEN T ([facility]) Body mass index (BMI) [Ratio] 32.5 kg/m2 32.5 k g/m2 [facility] ([facility]) [place] body weight 160 [lb_av] 160 [lb_av] MEDEN T ([facility]) Body weight 99.792 kg 99.792 kg [facility] ([facility]) Body surface area Derived from formula 2.15 m2 2.15 m2 [facility] ([facility]) Diastolic blood pressure 62 mm[Hg] 62 mm[Hg] [facility] Body height 69 [in_i] 69 [in_i] [facility] ([facility]) 5'9" Systolic blood pressure 118 mm[Hg] 118 mm[Hg] M EDSLIM ([facility]) Body weight 215.00 [lb_av] 215.00 [lb_av] MEDEN T ([facility]) Body mass index (BMI) [Ratio] 31.7 kg/m2 31.7 k g/m2 [facility] ([facility]) [place] body weight 160 [lb_av] 160 [lb_av] MEDEN T ([facility], ) Body weight 97.524 kg 97.524 kg MEDENT ([facility], ) Body weight 217 [lb_av] 217 [lb_av] eCW1 ([facility]) Body height 69 [in_i] 69 [in_i] eCW1 ([facility]) Body mass index (BMI) [Ratio] 32.04 kg/m2 32.04 kg/m2 eCW1 ([facility]) Systolic blood pressure 134 mm[Hg] 134 mm[Hg] e CW1 ([facility]) Diastolic blood pressure 76 mm[Hg] 76 mm[Hg] eCW1 ([facility]) Patient Treatment Plan of Care Planned Activity Planned Date Details Description Data Source (s) Levofloxacin 500 MG Oral Tablet 05/21/2021 12:00:00 AM EDT eCW1 ([facility]) Levofloxacin 500 MG Oral Tablet 05/21/2021 12:00:00 AM EDT eCW1 ([facility]) Levofloxacin 500 MG Oral Tablet 05/21/2021 12:00:00 AM EDT eCW1 ([facility]) Augmentin 875-125 MG 04/11/2021 12:00:00 AM EDT eCW1 ([facility]) Augmentin 875-125 MG 04/11/2021 12:00:00 AM EDT eCW1 ([facility])
--- OUTSIDE RECORDS SUMMARY | 2021-09-21 06:44 | CCD | Continuity of Care Document ---
Author Author Oscar SHEPPARD MD Organization Unknown Address [address] [place] [id number] Phone [phone] Care Team Providers Care Street Light Inspector Name Role Phone Shantel Haddad AUTM [phone] Problems Active Problems Provider Date Essential hypertension [...]
--- OUTSIDE RECORDS SUMMARY | 2021-09-21 06:44 | CCD ---
Author Author [facility] [employer] [facility] Organization [facility] Address Unknown Phone Unavailable Support Name Relationship Address Phone [place] Unknown Unavailable [place] [id number] [place], [place] [id number] Care Team Providers Care Refrigerator Repair Technician Name Role Phone Shantel Haddad Unavailable PROBLEMS Type Condition ICD9-CM Code [id number] Code Onset Dates Condition S tatus W/U Status Risk SNOMED Code Notes Problem Erectile dysfunction, unspecified erectile dysfunction typ e N52.9 Active confirmed 745293537 Problem Subclinical hypothyroidism E03.9 Active confirmed 71683341 Problem Type 2 diabetes mellitus wit hout complication, without long-term current use of insulin E11.9 Active confirmed 821946396 He is a type II diabetic on metformin therapy. 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 This revealed some varices and gastritis. 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 He has no active issues at present Problem Xerosis cutis L85.3 Active confirmed 140780 00 Problem Mild intermittent asthma without complication J45. 20 Active confirmed 857754848 He has a history of asthma. This is controlled with Advair therapy. Problem Pain in left knee M25.562 Active confirmed 3 6046088 Problem Family history of diabetes mellitus Z83.3 Acti ve confirmed 750368593 Problem Hypersplenism D73.1 Active confirmed 829688 00 He has a low platelet count related to sequestration in the spleen, related to his liver disease. Platelet transfusion is not necessary prior to this procedure. Problem History of adenomatous polyp of colon Z86.010 Ac tive confirmed 004530515 Per colonoscopy in February 2019. Problem Sciatica of right side M54.31 Active confirmed 23003652 Problem Actinic keratoses L57.0 Active confirmed 40 6514082 Problem Decreased hearing of both ears H91.93 Active confir med 826115336 Problem Osteopenia of lumbar spine M85.88 Active confirmed 381248521 Problem Portal hypertension K76.6 Active confirmed 67355588 Problem Essential hypertension I10 Active confirmed 83501691 His blood pressure is controlled on diltiazem and losartan. 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 ascites K70.3 0 Active confirmed 069644769 Problem Seasonal allergies J30.2 Active confirmed 4 80384714 Problem Stucco keratoses L85.1 Active confirmed 403 083543 Problem Skin cancer screening Z12.83 Active confirmed 939325263 Problem Verruca vulgaris B07.9 Active confirmed 570 71866 Problem Anemia due to GI blood loss D50.0 Active confirmed 880539906 Problem Sebaceous hyperplasia of face L73.8 Active confirm ed 252610126 Problem Irregular heart beat I49.9 Active confirmed 346449151 Problem History of nonmelanoma skin cancer Z85.828 Activ e confirmed 722089160 Problem Chronic liver disease K76.9 Active confirmed 441191943 He has alcoholic liver disease with varices, abnormal liver transaminases, hypersplenism. He has had serologic testing with his army manager and he does not have primary biliary cirrhosis, hemochromatosis, etc. His liver disease at present is stable. Problem Lentigines L81.4 Active confirmed 599434208 Problem Seborrheic keratoses L82.1 Active confirmed 318281759 Problem Seborrheic dermatitis L21.9 Active confirmed 25816377 Problem Secondary esophageal varices with bleeding I85.11 Active confirmed 30009165 ALLERGIES Allergen (clinical drug ingredient) Drug/Non Drug Allergy do cumented on EMR Reaction Allergy Type Onset Date Status Nsaids avoid - esophageal varices Non Drug Allergy Active ALMONDS SORE THROAT AND SWELLING Non Drug Allergy Active ENCOUNTERS from 1955 to 2021-07-03 Encounter Location Date Provider Diagnosis [place] [id number] [facility] [phone] [place] [address] 14 Jun, 2021 Shantel Servage Essential hypertension I10 IMMUNIZATIONS Vaccine Route Administration Date Status Influenza 18 yrs & older Flublok IM Intramuscular Aug 21, 2020 Administered Influenza 18 yrs & older Flublok IM Intramuscular Nov 17, 2018 Administered Hepatitis A & B 1mL Twinrix IM Intramuscular May 20, 2019 Adm inistered Pneumococcal Adult 0.5mL Pneumovax 23 IM Intramuscular Nov 17 019 Administered SOCIAL HISTORY Tobacco Use: Social History Observation Description Date Details (start date - stop date) Never Smoker Sex Assigned At : Social History Observation Description Sex Assigned At Unknown Education: Question Answer Notes Level of Education: Finished [employer] degree Audit Question Answer Notes Total Score: 0 Interpretation: Alcohol Education Language: Question Answer Notes Languages spoken: Malay little bit Azeri/ l ittle bit Chinese Episcopal: Question Answer Notes Episcopal 21 [employer] Domestic Violence: Question Answer Notes Status: 1974 Number of months/years in current relationship? use notes se ction Does the patient divulge that the partner hit them? No Does the patient consider the partner abusive? No Has the patient ever been in a situation involving domestic violence? No Has the patietn ever been injured, homeb ound, or hospitalized due to an altercation with significant other? No Sexual Hx: Question Answer Notes Had sex in the last 12 months (vaginal, oral, or anal)? Yes Have you ever had an STD? No with Women only Use protection? No Drug and Alcohol Question Answer Notes Total Score: 0 Interpretation: No problems reported Alcohol Screening: Question Answer Notes Did you have a drink containing alcohol in the past year? No Points 0 Interpretation Negative Tobacco Use: Question Answer Notes Are you a: never smoker REASON FOR REFERRAL No Information VITAL SIGNS No information MEDICATIONS Medication SIG (Take, Route, Frequency, Duration) Notes Start Da te End Date Status Centrum Silver - as directed Orally Active Propranolol HCl 10 MG as directed orally 1 in am 2 in pm Active Chlorpheniramine Maleate 4 MG 1 tablet as needed Orally ever y 6 hrs hosp d/c 03/09/20= 1qd Active Esomeprazole Magnesium 20 MG 1 capsule Orally Once a day 2 February, Not-Taking metFORMIN HCl ER 500 MG 1 tablet with evening meal Orally Once a day Active Aspir-81 81 MG 1 tablet Orally Once a day Active Folic Acid 1 MG 1 tablet Orally 3 times a day Active Advair Diskus 250-50 MCG/DOSE 1 puff Inhalation bid Active Levaquin 500 MG 1 tablet Orally Once a day for 7 day(s) May, Active Ventolin HFA 108 (90 Base) MCG/ACT 2 puffs as needed I nhalation every 6 hrs for 30 days Active Hydrocortisone 2.5 % 1 application Externally BID to rash on fac e for 30 days Mar, Not-Taking Viagra 50 MG 1 tablet as needed Orally Once a day for 30 days Active Losartan Potassium 50 MG 1 tablet Orally Once a day Active dilTIAZem HCl ER 240 MG 1 capsule Orally Once a day for 90 days Active PROCEDURES No Information RESULTS No Results REASON FOR VISIT refill-diltiazem MEDICAL (GENERAL) HISTORY Type Description Date Medical History alcoholic liver cirrhosis wi th dilitated portal veins/initially with ascities. CTP A, MELD Na9 Medical History 01/05 [facility] Ultrasound Chronic Liver Dise ase Medical History grade 3 esophageal varices l ower third of the esophagus. Banded 03/06/2020 Medical History Quit Drinking October 2018 Medical History Asthma Medical History Essential Hypertension Medical History environmental allergies oak trees especi ally Medical History Hx Gastric Ulcers Medical History Erectile Dysfunction Medical History Neck Arthritis Medical History Actinic keratoses Medical History colonoscopy 2018 due in 3 years 2021 tub ular adeoma Surgical History left inquinal hernia repair Surgical History tonsillectomy x's 2 Surgical History right knee arthroscopy- [place] 201 2 Surgical History colonoscopy negative 10 year follow up 2 012 Surgical History EDG stomach ulcers healed 2013 ? Surgical History Upper endoscopy (varices, ga stritis) and colonoscopy (adenomatous polyps) 02/2019 Surgical History Left knee arthroscopy-Dr. Sheppard 04/05 Surgical History blood transfusion 02/2020 Hospitalization History SX RELATED Hospitalization History GI bleed 02/2020 Hospitalization History 5 nights in hospital 03/05/2020 Goals Section No Information Health Concerns No Information MEDICAL EQUIPMENT No Information MENTAL STATUS No Information FUNCTIONAL STATUS No Information ASSESSMENTS Encounter Date Diagnosis Assessment Notes Treatment Notes Treatm ent Clinical Notes Jun, Essential hypertension (ICD-10 - I10) PLAN OF TREATMENT Medication Medication Name Sig Start Date Stop Date dilTIAZem HCl ER 240 MG 1 capsule Orally Once a day for 90 days Levaquin 500 MG 1 tablet Orally Once a day for 7 day(s) May, Next Appt Details Provider Name:Shantel Haddad, 2021-10- 07:30:00 AM, [address] [facility], , [place], [address], Provider Name:Apolonia Mandujano, 08:45:00 AM, [address] [facility], , [place], [place], [facility] [place] [facility] [place], Insurance Providers Payer Name Payer Address Payer Phone Insured Name Patient Relati onship to Insured Coverage Start Date Coverage End Date MEDICARE Part A and B [address] [facility] [phone] [place] self FOR LIFE [address] [facility] [id number] [place] [facility] [address] [facility] [id number] [place]ANC[place] [id number]
[2021-09-21] MEDS ORDERED: LIDOCAINE 2% 100MG/5ML SDV (FOR ANES.) As Ordered ONE (07:25)
[2021-09-21] MEDS ORDERED: propofoL 200 MG/20 ML VIAL As Ordered ONE (07:25)
[2021-09-21] MEDS ORDERED: fentaNYL 100 MCG/2 ML INJECTION (J3010) As Ordered ONE (07:26)
[2021-09-21] MEDS ORDERED: ONDANSETRON 4MG/2ML VIAL As Ordered ONE (07:51)
--- NOTE | 2021-09-21 08:04 | ROOR ---
Patient Name: Oscar Vegas Procedure Date: 09/21/2021 7:31 AM Date of : 1955 Age: 66 Room: [facility] Gender: Male Note Status: Finalized Procedure: Upper GI endoscopy Indications: For therapy of esophageal varices Providers: Bernardo Shaw MD Referring MD: Shantel Haddad NP Requesting Provider: Medicines: Monitored Anesthesia Care Complications: No immediate complications. Procedure: Pre-Anesthesia Assessment: - Prior to the procedure, a History and Physical was performed, and patient medications and allergies were reviewed. The patient is competent. The risks and benefits of the procedure and the sedation options and risks were discussed with the patient. All questions were answered and informed consent was obtained. Patient identification and proposed procedure were verified by the physician, the nurse and the anesthesiologist in the procedure room. Mental Status Examination: alert and oriented. Airway Examination: normal oropharyngeal airway and neck mobility. Respiratory Examination: clear to auscultation. CV Examination: normal. Prophylactic Antibiotics: The patient does not require prophylactic antibiotics. Prior Anticoagulants: The patient has taken no previous anticoagulant or antiplatelet agents. ASA Grade Assessment: III - A patient with severe systemic disease. After reviewing the risks and benefits, the patient was deemed in satisfactory condition to undergo the procedure. The anesthesia plan was to use monitored anesthesia care (MAC). Immediately prior to administration of medications, the patient was re-assessed for adequacy to receive sedatives. The heart rate, respiratory rate, oxygen saturations, blood pressure, adequacy of pulmonary ventilation, and response to care were monitored throughout the procedure. The physical status of the patient was re-assessed after the procedure. The Endoscope was introduced through the mouth, and advanced to the second part of duodenum. The upper GI endoscopy was accomplished without difficulty. The patient tolerated the procedure well. Findings: Three columns of grade II, large (> 5 mm) varices were found in the lower third of the esophagus,. No stigmata of recent bleeding were evident and red silvano signs were present. Stigmata of prior treatment were evident. Four bands were successfully placed with complete eradication, resulting in deflation of varices. There was no bleeding during and at the end of the procedure. Severe portal hypertensive gastropathy was found in the cardia, in the gastric fundus, in the gastric body and in the gastric antrum. No gross lesions were noted in the duodenal bulb, in the second portion of the duodenum, in the area of the papilla and in the third portion of the duodenum. Impression: - Non-bleeding grade II and large (> 5 mm) esophageal varices. Completely eradicated. Banded. - Portal hypertensive gastropathy. - No gross lesions in the duodenal bulb, in the second portion of the duodenum, in the area of the papilla and in the third portion of the duodenum. - No specimens collected. Recommendation: - Patient has a contact number available for emergencies. The signs and symptoms of potential delayed complications were discussed with the patient. Return to normal activities tomorrow. Written discharge instructions were provided to the patient. - Clear liquid diet for 1 day, then advance as tolerated to chopped diet and mechanical soft diet. - Continue present medications. - No ibuprofen, naproxen, or other non-steroidal anti-inflammatory drugs. - Use Protonix (pantoprazole) 40 mg PO BID for 8 weeks. - Use sucralfate suspension 1 gram PO QID for 4 weeks. - Telephone GI clinic if symptomatic. - Return to GI clinic in 3 months. - Return to primary care physician. Procedure Code(s): --- Professional --- 41978, Esophagogastroduodenoscopy, flexible, transoral; with band ligation of esophageal/gastric varices Diagnosis Code(s): --- Professional --- I85.00, Esophageal varices without bleeding K76.6, Portal hypertension K31.89, Other diseases of stomach and duodenum CPT copyright 2019 [employer]. All rights reserved. The codes documented in this report are preliminary and upon president and ceo review may be revised to meet current compliance requirements. Bernardo Shaw MD Bernardo Shaw MD 09/21/2021 8:03:48 AM Electronically signed by Bernardo Shaw MD Number of Addenda: 0 Note Initiated On: 09/21/2021 7:31 AM Estimated Blood Loss: Estimated blood loss: none.
[2021-09-21 08:20] VITALS: BP 146/84
== END 2021-09-21 08:27 | disposition home or self-care (01) ==
LOC: M OPP 06:40
PROVIDERS: ATTEND Internal Medicine Gastroenterology
DX: I85.00 Esophageal varices without bleeding (principal); K76.6 Portal hypertension; K31.89 Other diseases of stomach and duodenum; Z79.82 Long term (current) use of aspirin; Z79.84 Long term (current) use of oral hypoglycemic drugs; Z79.899 Other long term (current) drug therapy; K74.60 Unspecified cirrhosis of liver; Z91.018 Allergy to other foods; Z88.8 Allergy status to other drugs, medicaments and biological substances; Z86.010 Personal history of colon polyps; Z87.11 Personal history of peptic ulcer disease; Z82.69 Family history of other diseases of the musculoskeletal system and connective tissue
CPT/HCPCS: 43244; J2405; J3010

== ENCOUNTER → 2021-11-12 | Outpatient (CLI) | payer OTHER, MEDICARE ==
[~2021-11-12] MED LIST changes: +LOSA50TA28 PO; -LOSA50TA88 PO; -NS 1,000 ML IV ONE; +OMEP-173 PO; -OMEP-218 PO; -OMEP-221; +OMEP40CA5
[2021-11-12 10:49] LABS: HEMATOCRIT 41.7 % (42.0-52.0); HEMOGLOBIN 14.5 g/dl (13.5-17.5); MEAN CORPUSCULAR HEMOGLOBIN 34.6 pg (27.0-33.0); MEAN CORPUSCULAR HGB CONC 34.8 g/dl (32.0-36.5); MEAN CORPUSCULAR VOLUME 99.5 fl (80.0-96.0); RED BLOOD COUNT 4.19 10^6/uL (4.30-6.10); WHITE BLOOD COUNT 5.6 10^3/uL (4.0-10.0)
[2021-11-12 10:50] LABS: PLATELET COUNT, AUTOMATED 60 10^3/uL (150-450)
[2021-11-12 12:18] LABS: ALBUMIN 3.9 GM/DL (3.2-5.2); ALT/SGPT 40 U/L (12-78); BILIRUBIN,TOTAL 1.2 MG/DL (0.2-1.0); BLOOD UREA NITROGEN 10 MG/DL (7-18); CARBON DIOXIDE LEVEL 27 MEQ/L (21-32); CHLORIDE LEVEL 99 MEQ/L (98-107); CHOLESTEROL LEVEL 222 MG/DL (<200); CHOLESTEROL RISK RATIO 5.285 (<5); CREATININE FOR GFR 0.78 MG/DL (0.70-1.30); FERRITIN 50 NG/ML (26-388); GLOMERULAR FILTRATION RATE > 60.0 (>49); GLUCOSE, FASTING 134 MG/DL (70-100); HDL CHOLESTEROL 42 MG/DL (>40); IRON (FE) 143 UG/DL (65-175); LDL CHOLESTEROL 148 MG/DL (<100); NON-HDL-C 180 MG/DL; POTASSIUM SERUM 3.9 MEQ/L (3.5-5.1); SODIUM LEVEL 135 MEQ/L (136-145); TOTAL PROTEIN 7.7 GM/DL (6.4-8.2); TRIGLYCERIDES LEVEL 160 MG/DL (<150)
[2021-11-12 12:19] LABS: CREATININE, URINE 57.4 MG/DL; MALB URINE SIEMENS < 5.0 MG/L; MAU/CREAT RATIO 8.7 MCG/MG (0.0-30.0)
[2021-11-12 12:50] LABS: HEMOGLOBIN A1c 5.9 %
== END ==
LOC: M PLALAB 08:26
PROVIDERS: ATTEND Nurse Practitioner Adult Health
DX: E11.9 Type 2 diabetes mellitus without complications (principal)

== ENCOUNTER → 2022-02-13 | Outpatient (CLI) | payer OTHER, MEDICARE ==
[2022-02-13 10:54] LABS: HEMOGLOBIN A1c 5.7 %
[2022-02-13 11:35] LABS: CREATININE, URINE 48.3 MG/DL; MALB URINE SIEMENS < 5.0 MG/L; MAU/CREAT RATIO 10.3 MCG/MG (0.0-30.0)
[2022-02-13 11:37] LABS: ALT/SGPT 44 U/L (12-78); BILIRUBIN,TOTAL 1.3 MG/DL (0.2-1.0); BLOOD UREA NITROGEN 11 MG/DL (7-18); CARBON DIOXIDE LEVEL 29 MEQ/L (21-32); CHLORIDE LEVEL 102 MEQ/L (98-107); CHOLESTEROL LEVEL 197 MG/DL (<200); GLOMERULAR FILTRATION RATE > 60.0 (>49); GLUCOSE, FASTING 136 MG/DL (70-100); HDL CHOLESTEROL 37 MG/DL (>40); POTASSIUM SERUM 4.4 MEQ/L (3.5-5.1); SODIUM LEVEL 135 MEQ/L (136-145); TRIGLYCERIDES LEVEL 142 MG/DL (<150)
[2022-02-13 11:38] LABS: ALBUMIN 3.6 GM/DL (3.2-5.2); CHOLESTEROL RISK RATIO 5.324 (<5); LDL CHOLESTEROL 132 MG/DL (<100); NON-HDL-C 160 MG/DL; TOTAL PROTEIN 7.1 GM/DL (6.4-8.2)
== END ==
LOC: M PLALAB 08:17
PROVIDERS: ATTEND Nurse Practitioner Adult Health
DX: E03.9 Hypothyroidism, unspecified (principal); E11.9 Type 2 diabetes mellitus without complications; Z13.220 Encounter for screening for lipoid disorders

== ENCOUNTER → 2022-02-14 | Outpatient (CLI) | payer OTHER, MEDICARE | LOC: M WHC 07:51 | PROVIDERS: ATTEND Internal Medicine Gastroenterology | DX: I85.00 Esophageal varices without bleeding (principal) ==

== ENCOUNTER → 2022-02-18 | Outpatient (CLI) | payer OTHER, MEDICARE | LOC: M LABSMTC 09:16 | PROVIDERS: ATTEND Anesthesiology | DX: Z11.52 Encounter for screening for COVID-19 (principal); Z20.822 Contact with and (suspected) exposure to COVID-19 ==

== ENCOUNTER 2022-02-22 07:31 | Day surgery (SDC) | payer OTHER, MEDICARE ==
[~2022-02-22] VITALS: Ht 175.3 cm; Wt 94.3 kg
[~2022-02-22 07:31] MED LIST changes: +NS 1,000 ML IV ONE
[2022-02-22] MEDS ORDERED: LIDOCAINE 2% 100MG/5ML SDV (FOR ANES.) As Ordered ONE (08:40)
[2022-02-22] MEDS ORDERED: fentaNYL 100 MCG/2 ML INJECTION As Ordered ONE (08:40)
[2022-02-22] MEDS ORDERED: propofoL 200 MG/20 ML VIAL As Ordered ONE ×2 (08:40→08:54)
[2022-02-22] MEDS ORDERED: ONDANSETRON 4MG/2ML VIAL As Ordered ONE (08:49)
[2022-02-22 09:35] VITALS: BP 110/58
== END 2022-02-22 10:11 | disposition home or self-care (01) ==
LOC: M OPP 07:31
PROVIDERS: ATTEND Internal Medicine Gastroenterology
DX: Z12.11 Encounter for screening for malignant neoplasm of colon (principal); Z86.010 Personal history of colon polyps; D12.6 Benign neoplasm of colon, unspecified; K64.8 Other hemorrhoids; K31.89 Other diseases of stomach and duodenum; K76.6 Portal hypertension; I85.00 Esophageal varices without bleeding; Z87.11 Personal history of peptic ulcer disease; E11.9 Type 2 diabetes mellitus without complications; Z79.82 Long term (current) use of aspirin; Z79.84 Long term (current) use of oral hypoglycemic drugs; Z79.899 Other long term (current) drug therapy; Z88.6 Allergy status to analgesic agent; Z88.8 Allergy status to other drugs, medicaments and biological substances; Z91.018 Allergy to other foods
CPT/HCPCS: 43244; 45380; 88305; J2405; J3010